=== PATIENT | female | born 1965 | race Caucasian/White ===

== ENCOUNTER 2021-06-12 12:56 | Inpatient (IN) | payer MEDICAID, SELFPAY ==
[2021-06-12] VITALS (8 sets, daily range): BP systolic 118–177; BP diastolic 68–97; PULSE 77–82; RESP 16–24; TEMP 36.1–36.9; O2SAT 98; BMI 37.3
--- NOTE | ~2021-06-12 | NM_ITS ---
BILIARY TRACT IMAGING STUDY CLINICAL INDICATION: Right upper quadrant abdominal pain, possible cholecystitis. PROCEDURE: Scintillation camera images were obtained over the abdomen for an observation of 60 minutes following the intravenous administration of 5.0 millicuries technetium 99m Mebrofenin. COMPARISON: No previous biliary scan is available for comparison. Abdominal ultrasound dated 06/13/[address] scan of the abdomen and pelvis dated 06/12/2021 are available for comparison.. FINDINGS: There is good concentration of activity in the liver by 5 minutes post injection. Biliary activity is well visualized by 12 minutes, and there is good visualization of small bowel activity by 40 minutes. The gallbladder is well visualized by 20 minutes. NM/NM hepatobiliary wo pharm IMPRESSION: Normal biliary scan. Visualization of the gallbladder is evidence of a patent cystic duct and strong evidence against the diagnosis of acute cholecystitis. The common bile duct is patent. Liver function appears normal.
--- NOTE | ~2021-06-12 | CT_ITS ---
EXAMINATION: CT ABDOMEN AND PELVIS WITH CONTRAST CLINICAL INFORMATION: Reason for Exam severe right sided back and abd pain, nausea, tender COMPARISON: None. TECHNIQUE: Multidetector volumetric imaging was performed from the superior aspect of the liver through the pubic symphysis following administration of 100 mL Omnipaque 300 intravenous contrast. Sagittal and coronal reformatted images were obtained on the technologist workstation.. This CT examination was performed using dose optimization techniques as appropriate, variously including the following: *Automated exposure control *Adjustment of mA and/or kV according to patient size (this includes techniques or standardized protocols for targeted exams where dose is matched to indication/reason for exam; i.e. extremities or head) *Use of iterative reconstruction technique DLP: 1022 mGy-cm FINDINGS: LUNG BASES: The visualized lung bases are unremarkable. LIVER, GALLBLADDER, AND BILIARY TREE: The liver is normal in size, shape, and attenuation. No focal hepatic lesion or biliary ductal dilatation is present. Large gallstones seen within the otherwise unremarkable gallbladder. No gallbladder wall thickening or pericholecystic inflammatory change. PANCREAS: Unremarkable. SPLEEN: Unremarkable. ADRENAL GLANDS: Unremarkable. KIDNEYS AND URETERS: The kidneys are normal in size, shape, and attenuation. No hydronephrosis, hydroureter, or calculi seen. No perinephric stranding. BLADDER: Unremarkable. GASTROINTESTINAL TRACT: Colon is decompressed but there is scattered colonic diverticulosis. No obvious colonic wall thickening or pericolonic inflammatory change. Normal-appearing appendix in the right lower quadrant without appendiceal inflammatory change. Normal appearance to the small bowel. ABDOMINAL WALL: No significant hernia is appreciated. LYMPHOVASCULAR STRUCTURES: Mild vascular calcification within the aorta iliac system. PELVIC VISCERA: Unremarkable. OSSEOUS STRUCTURES: Multilevel degenerative changes in the lumbar spine more so lower lumbar spine. CT/CT abdomen pelvis w con IMPRESSION: I do not appreciate any acute intra-abdominal process with chronic appearing changes as described above.
--- NOTE | ~2021-06-12 | US_ITS ---
EXAMINATION: US ABDOMEN LIMITED CLINICAL INFORMATION: Abdominal pain. Possible cholecystitis.. COMPARISON: Previous CT of the abdomen and pelvis from yesterday TECHNIQUE: Real-time imaging of the right upper quadrant abdominal viscera. FINDINGS: PANCREAS: Not well visualized due to bowel gas LIVER: Normal. The liver is normal in size. The liver contour is normal. Parenchymal echogenicity is normal. No focal hepatic lesion. There is no intrahepatic biliary duct dilatation seen. GALLBLADDER: The gallbladder is upper normal in size. There is a large gallstone in the fundus of the gallbladder measuring 3.6 cm. The gallbladder wall appears echogenic and thickened measuring 0.5 to 1.2 cm. There is no gallbladder wall edema. The electroencephalograph technologist describes that the patient is tender over the gallbladder. COMMON BILE DUCT: Normal in caliber measuring 0.6 cm in diameter. RIGHT KIDNEY: Normal. No hydronephrosis. No renal calculi or focal parenchymal lesions. The kidney measures normal cm in maximum dimension. FREE FLUID: There is a small amount of ascites adjacent to the left lobe of the liver. US/US abdomen limited IMPRESSION: Upper normal-size gallbladder. Large 3.6 cm stone in the fundus of the gallbladder and thickened gallbladder wall. The electroencephalograph technologist reports the patient is tender over the gallbladder. Small amount of ascites adjacent to the left lobe of the liver. Findings are concerning for cholecystitis. HIDA scan may be helpful.
[2021-06-12 14:27] LABS: MANUAL DIFF FLAG NO
[2021-06-12 14:29] LABS: Basophils Percent Auto 0.4 % (0-2); Eosinophils Absolute Auto 0.3 X10*3/uL (0.0-0.4); Hematocrit 38.6 % (37-47); Hemoglobin 13.5 g/dl (12.0-16.0); Imm Gran Abs Auto 0.04 X10*3/uL (0.00-0.03); Imm Gran Pct Auto 0.4 % (0.0-0.4); Lymphocytes Absolute Auto 2.4 X10*3/uL (1.2-4.9); Lymphocytes Percent Auto 22.6 % (20-40); Mean Corpuscular Hemoglobin 28.7 pg (27.0-33.0); Mean Corpuscular Volume 82.1 fL (80-98); Mean Platelet Volume 10.2 fL (9.4-12.3); Monocytes Absolute Auto 0.6 X10*3/uL (0.1-1.2); Monocytes Percent Auto 5.9 % (2-11); Neutrophils Absolute Auto 7.3 X10*3/uL (2.0-8.3); Neutrophils Percent Auto 67.7 % (45-73); Platelet Count 206 X10*3/uL (160-400); Red Cell Distribution Width 13.6 % (11.0-16.0); White Blood Count 10.8 X10*3/uL (4.8-10.8)
[2021-06-12 14:45] LABS: Anion Gap 13 (12-20); Blood Urea Nitrogen 17 mg/dL (9-16); Calcium 9.5 mg/dL (8.4-10.2); Carbon Dioxide 23 mmol/L (22-29); Chloride 106 mmol/L (96-108); Creatinine Clr Calc Pharmacy 97.2; Estimated Glomerular Filt Rate > 60; Glucose Random 150 mg/dL (60-115); Potassium 4.4 mmol/L (3.3-5.1); Sodium 138 mmol/L (135-145)
[2021-06-12 14:47] LABS: Lipase 58 U/L (8-78)
[2021-06-12 14:51] LABS: Troponin-I High Sensitivity < 3.5 ng/L (<3.5-17.0)
--- NOTE | 2021-06-12 16:15 | ED.ABDPAIN ---
HPI - Abdominal Pain General Chief Complaint: Abdominal Pain Stated Complaint: SEVERE BACK PAIN Time Seen by Provider: 06/12/21 16:03 Source: patient and family Mode of arrival: ambulatory Limitations: no limitations History of Present Illness HPI narrative: 56 yo female with history of obesity and COPD, active smoker who presents to the ER from home c/o worsening right sided abdominal pain for the last 2 weeks. She has been constipated for the last 2 weeks and taking laxatives and using suppositories without improvement. She last had a very small BM at 11am today. She reports the pain today is worse, 10/10, starts in her right middle back and wraps around to the front of her abdomen. She is nauseated but has not vomited. No fever or chills. No urinary symptoms. MD elicited complaint: abdominal pain and flank pain Pertinent past history: none Onset (ago): week(s) Pain Consistency: constant Location: R flank Severity: similar to previous episodes Pain scale (0-10): 10 Quality: stabbing Radiation: RUQ Exacerbating factors: nothing Relieving factors: nothing Associated symptoms: nausea Related Data Allergies Allergy/AdvReac Type Severity Reaction Status Date / Time codeine [CODEINE] AdvReac Unknown TYL #3 - Verified 06/12/21 13:22 HEADACHE Review of Systems Constitutional: Denies chills, Denies fever(s) and Denies headache(s) Eyes: Reports no additional eye complaints Reports Normal hearing present, Denies headache(s) and Denies sore throat Cardiovascular: Denies chest pain, Denies leg edema, Denies lightheadedness and Reports dyspnea Respiratory: Denies chest congestion, Denies cough, Reports pain on inspiration, Reports dyspnea and Denies wheezing Gastrointestinal: Reports abdominal pain, Reports bloating, Reports constipation, Reports GI cramping, Denies diarrhea, Reports nausea and Denies vomiting Genitourinary: Denies hematuria, Denies dysuria, Denies pelvic pain, Reports flank pain, Denies urinary urgency and Denies vaginal discharge Musculoskeletal: Reports back pain and Denies myalgias Skin/Breast: Denies rash Reports Normal hearing present and Denies headache(s) Hematologic/Lymphatic: Denies easy bleeding and Denies easy bruising Allergic/Immunologic: Denies wheezing Physical Exam Vital Signs: Vital Signs: Last Vital Signs Temp 98.4 F 09/04/21 19:44 Pulse 77 06/12/21 19:44 Resp 24 H 06/12/21 19:50 BP 177/97 H 06/12/21 22:19 Pulse Ox 98 06/12/21 19:44 Body Mass Index 37.3 Const: General: well developed, alert, awake and acute distress (appears to be in pain) mild Nutritional Appearance: overweight Orientation/consciousness: patient oriented x3 Limitations: no limitations HENMT: Head: Yes normal to inspection, Yes normocephalic and Yes atraumatic Ears: hearing grossly normal bilaterally and external ears normal General nose exam: Normal external nose present and Normal nares present Face and sinus: Yes normal facial exam and Yes face symmetric Mouth: Normal oral and palatal mucosa present, lip normal and tongue normal Teeth and gingiva: dentition normal and gingiva normal Throat: Yes posterior oropharynx normal, Yes tonsils normal and Yes uvula midline Eyes: General: appearance normal, both eyes and all related structures Neck: Neck: Yes normal visual inspection and Yes no lymphadenopathy Chest: Chest palpation & inspection: normal inspection of the chest Resp: Effort & Inspection: normal respiratory effort and able to speak in complete sentences Auscultation: clear to auscultation bilaterally Cardio: Rate: regular rate Rhythm: regular rhythm Heart sounds: S1 normal heart sound present and S2 normal heart sound present GI: Inspection: Yes obesity Palpation (GI): Soft to palpation, Tenderness to palpation present (GI) in the epigastrum and in the RUQ, Guarding due to palpation present (GI) in the RUQ and not rigid Percussion: Yes normal to percussion Auscultation: Hypoactive bowel sounds present Rectal Exam - Female: deferred : General: Yes CVA tenderness (on the right) Back/Spine/Pelvis: Back: CVA tenderness (on the right) Skin: General skin exam: no rashes or lesions noted Neuro: General: patient oriented x3, gait normal, tone normal and moves all extremities Cranial nerves: Yes Normal hearing present Extrem: General: Yes normal to inspection, Yes no pedal edema and Yes no calf tenderness Psych: Appearance: grossly normal and well kempt Mental Status: mental status grossly normal Speech and movement: Normal speech and movement present Affect: normal affect Attitude: cooperative Course Course Course Narrative: 56 y/o female presenting with 2 weeks of constipation as well as right flank pain radiating to right upper quadrant. Basic labs sent in triage and are unremarkable. Will add LFTs and check UA. IV morphine, zofran and IVF ordered for c/o pain 10/10. Reevaluation(s) Reevaluation #1: LFTs are normal. CT scan is pending. Pain is improved after morphine. Reevaluation #2: CT scan is negative for acute pathology. UA negative. She is again reporting 10/10 pain. Question of biliary colic? She has normal LFTs with large gallstones but no wall thickening or pericholecystic inflammatory changes. Will give dose of oxycodone and reassess. US not available at this time. Reevaluation #3: Pain not improved with oxycodone. Additional course of morphine and zofran ordered. Additional Reevaluation(s): Pain continued to have pain, does not feel safe for discharge. Spoke with Dr. Holloway who will admit for further management. Consultations Consultation #1: General Surgery - Dr. Holloway MDM - Abdominal Pain Lab Data Result diagrams: 06/12/21 14:23 06/12/21 14:23 Labs: Lab Results 06/12/21 06/12/21 06/12/21 Range/Units 14:23 14:23 14:23 WBC 10.8 (4.8-10.8) X10*3/uL RBC 4.70 (4.20-5.50) X10*6/uL Hgb 13.5 (12.0-16.0) g/dl Hct 38.6 (37-47) % MCV 82.1 (80-98) fL MCH 28.7 (27.0-33.0) pg MCHC 35.0 (31.0-35.0) g/dl RDW 13.6 (11.0-16.0) % Plt Count 206 (160-400) X10*3/uL MPV 10.2 (9.4-12.3) fL Immature Gran % (Auto) 0.4 (0.0-0.4) % Neut % (Auto) 67.7 (45-73) % Lymph % (Auto) 22.6 (20-40) % [place] % (Auto) 5.9 (2-11) % Eos % (Auto) 3.0 (0-4) % Baso % (Auto) 0.4 (0-2) % Lymph # (Auto) 2.4 (1.2-4.9) X10*3/uL [place] # (Auto) 0.6 (0.1-1.2) X10*3/uL Eos # (Auto) 0.3 (0.0-0.4) X10*3/uL Baso # (Auto) 0.0 (0.0-0.2) X10*3/uL Abs Immat Gran (auto) 0.04 H (0.00-0.03) X10*3/uL Absolute Neuts (auto) 7.3 (2.0-8.3) X10*3/uL Absolute Nucleated RBC 0.000 (0.0-0.012) X10*3/uL Nucleated RBC % (auto) 0.0 (0.0-0.2) /100WBC Sodium 138 (135-145) mmol/L Potassium 4.4 (3.3-5.1) mmol/L Chloride 106 (96-108) mmol/L Carbon Dioxide 23 (22-29) mmol/L Anion Gap 13 (12-20) BUN 17 H (9-16) mg/dL Creatinine 0.90 (0.5-1.4) mg/dL Estim Creat Clear Calc 97.2 Estimated GFR > 60 Random Glucose 150 H (60-115) mg/dL Calcium 9.5 (8.4-10.2) mg/dL Magnesium (1.6-2.6) mg/dL Total Bilirubin 0.4 (0.0-1.0) mg/dL Direct Bilirubin < 0.2 (0.0-0.5) mg/dL AST 8 (5-31) U/L ALT 12 (0-31) U/L Alkaline Phosphatase 112 (39-117) U/L Troponin I High Sens (<3.5-17.0) ng/L Total Protein 6.9 (6.5-8.0) g/dL Albumin 4.0 (3.5-5.0) g/dL Lipase 58 (8-78) U/L Urine Color Urine Appearance Urine pH (5.0-8.0) Ur Specific [place] (1.005-1.025) Urine Protein (NEG-TRACE) MG/DL Urine Glucose (UA) (NEG) MG/DL Urine Ketones (NEG) MG/DL Urine Blood (NEG) Urine Nitrite (NEG) Ur Leukocyte Esterase (NEG) COVID-19 ([facility]) (Negative) COVID-19 Clin Com 06/12/21 06/12/21 06/12/21 Range/Units 14:23 14:23 16:58 WBC (4.8-10.8) X10*3/uL RBC (4.20-5.50) X10*6/uL Hgb (12.0-16.0) g/dl Hct (37-47) % MCV (80-98) fL MCH (27.0-33.0) pg MCHC (31.0-35.0) g/dl RDW (11.0-16.0) % Plt Count (160-400) X10*3/uL MPV (9.4-12.3) fL Immature Gran % (Auto) (0.0-0.4) % Neut % (Auto) (45-73) % Lymph % (Auto) (20-40) % [place] % (Auto) (2-11) % Eos % (Auto) (0-4) % Baso % (Auto) (0-2) % Lymph # (Auto) (1.2-4.9) X10*3/uL [place] # (Auto) (0.1-1.2) X10*3/uL Eos # (Auto) (0.0-0.4) X10*3/uL Baso # (Auto) (0.0-0.2) X10*3/uL Abs Immat Gran (auto) (0.00-0.03) X10*3/uL Absolute Neuts (auto) (2.0-8.3) X10*3/uL Absolute Nucleated RBC (0.0-0.012) X10*3/uL Nucleated RBC % (auto) (0.0-0.2) /100WBC Sodium (135-145) mmol/L Potassium (3.3-5.1) mmol/L Chloride (96-108) mmol/L Carbon Dioxide (22-29) mmol/L Anion Gap (12-20) BUN (9-16) mg/dL Creatinine (0.5-1.4) mg/dL Estim Creat Clear Calc Estimated GFR Random Glucose (60-115) mg/dL Calcium (8.4-10.2) mg/dL Magnesium 2.0 (1.6-2.6) mg/dL Total Bilirubin (0.0-1.0) mg/dL Direct Bilirubin (0.0-0.5) mg/dL AST (5-31) U/L ALT (0-31) U/L Alkaline Phosphatase (39-117) U/L Troponin I High Sens < 3.5 (<3.5-17.0) ng/L Total Protein (6.5-8.0) g/dL Albumin (3.5-5.0) g/dL Lipase (8-78) U/L Urine Color YELLOW Urine Appearance CLEAR Urine pH 6.0 (5.0-8.0) Ur Specific [place] <= 1.005 (1.005-1.025) Urine Protein NEG (NEG-TRACE) MG/DL Urine Glucose (UA) NEG (NEG) MG/DL Urine Ketones NEG (NEG) MG/DL Urine Blood NEG (NEG) Urine Nitrite NEG (NEG) Ur Leukocyte Esterase NEG (NEG) COVID-19 ([facility]) (Negative) COVID-19 Clin Com 06/12/21 Range/Units 20:10 WBC (4.8-10.8) X10*3/uL RBC (4.20-5.50) X10*6/uL Hgb (12.0-16.0) g/dl Hct (37-47) % MCV (80-98) fL MCH (27.0-33.0) pg MCHC (31.0-35.0) g/dl RDW (11.0-16.0) % Plt Count (160-400) X10*3/uL MPV (9.4-12.3) fL Immature Gran % (Auto) (0.0-0.4) % Neut % (Auto) (45-73) % Lymph % (Auto) (20-40) % [place] % (Auto) (2-11) % Eos % (Auto) (0-4) % Baso % (Auto) (0-2) % Lymph # (Auto) (1.2-4.9) X10*3/uL [place] # (Auto) (0.1-1.2) X10*3/uL Eos # (Auto) (0.0-0.4) X10*3/uL Baso # (Auto) (0.0-0.2) X10*3/uL Abs Immat Gran (auto) (0.00-0.03) X10*3/uL Absolute Neuts (auto) (2.0-8.3) X10*3/uL Absolute Nucleated RBC (0.0-0.012) X10*3/uL Nucleated RBC % (auto) (0.0-0.2) /100WBC Sodium (135-145) mmol/L Potassium (3.3-5.1) mmol/L Chloride (96-108) mmol/L Carbon Dioxide (22-29) mmol/L Anion Gap (12-20) BUN (9-16) mg/dL Creatinine (0.5-1.4) mg/dL Estim Creat Clear Calc Estimated GFR Random Glucose (60-115) mg/dL Calcium (8.4-10.2) mg/dL Magnesium (1.6-2.6) mg/dL Total Bilirubin (0.0-1.0) mg/dL Direct Bilirubin (0.0-0.5) mg/dL AST (5-31) U/L ALT (0-31) U/L Alkaline Phosphatase (39-117) U/L Troponin I High Sens (<3.5-17.0) ng/L Total Protein (6.5-8.0) g/dL Albumin (3.5-5.0) g/dL Lipase (8-78) U/L Urine Color Urine Appearance Urine pH (5.0-8.0) Ur Specific [place] (1.005-1.025) Urine Protein (NEG-TRACE) MG/DL Urine Glucose (UA) (NEG) MG/DL Urine Ketones (NEG) MG/DL Urine Blood (NEG) Urine Nitrite (NEG) Ur Leukocyte Esterase (NEG) COVID-19 ([facility]) Negative (Negative) COVID-19 Clin Com See Note Critical Care Time Critical Care Time Critical Care Time: Yes Total Critical Care Time: 45 Attestation: I have personally provided critical care time exclusive of time spent on separately billable procedures. Time includes review of lab data, radiology results, discussion with consultants, and monitoring for potential decompensation. Intervention performed as documented. Discharge Plan Discharge Clinical Impression: Biliary colic Patient Disposition: Admitted As Inpatient Interventions: Admission Worksheet (ED) Last Done: 06/12/21 22:25 Discharge Date/Time: 06/12/21 22:26 [facility] Past Medical History Attestation statement: The following information was validated with the patient. Medical History (Updated 06/12/21 @ 22:21 by [email or web address] Johnson) No known health problems Social History Social History Alcohol intake: never Smoked in Last 30 Days: No Use of substances other than those prescribed or required for medical reasons: No Advance Directives: Yes Advance Directives Information Provided: Yes Advance Directives on File: No
[2021-06-12] MEDS: ondansetron HCL 4 MG/2 ML VIAL IVPUSH ×2 (16:33→19:51)
[2021-06-12] MEDS: Morphine Sulfate 4 MG/ML CARTRIDGE IVPUSH ×2 (16:33→19:50)
[2021-06-12] MEDS: 0.9 % Sodium Chloride 1,000 ML 999 ML IVCONT (16:34)
[2021-06-12 17:06] LABS: Alanine Aminotransferase 12 U/L (0-31); Alkaline Phosphatase 112 U/L (39-117); Aspartate Amino Transferase 8 U/L (5-31); Bilirubin Direct < 0.2 mg/dL (0.0-0.5); Bilirubin Total 0.4 mg/dL (0.0-1.0); Total Protein 6.9 g/dL (6.5-8.0)
[2021-06-12 17:07] LABS: Glucose Urine UA NEG (NEG); Leukocyte Esterase Urine NEG (NEG); Nitrite Urine NEG (NEG); Specific Gravity - Urine <= 1.005 (1.005-1.025); Urine Blood NEG (NEG); Urine Ketones NEG (NEG); Urine Protein NEG (NEG-TRACE)
[2021-06-12 17:08] LABS: Appearance Urine CLEAR; Color Urine YELLOW
[2021-06-12] MEDS: iohexoL 350 MG/ML 100 ML INFUS..BTL IV (17:45)
[2021-06-12] MEDS: oxyCODONE HCl Immed Release 5 MG TABLET PO (18:58)
--- NOTE | 2021-06-12 19:55 | PC.NURSE ---
?admission due to pain control
[2021-06-12 20:34] LABS: COVID-19 Test Negative (Negative)
--- NOTE | 2021-06-12 21:24 | PC.NURSE ---
pending report to floor
--- NOTE | 2021-06-12 22:03 | PC.NURSE ---
attempted call back to give report was unsuccessful
[2021-06-12] MEDS: HYDROmorphone HCl 0.5 MG/0.5 ML SYRINGE IVPUSH (22:43)
[2021-06-12] MEDS: Enoxaparin Sodium 40 MG/0.4 ML SYRINGE SUBCUT (22:48)
[2021-06-12] MEDS: Piperacillin Sodium/Tazobactam 3.375 GM in 0.9 % Sodium Chloride 50 ML IV (22:49)
[2021-06-12] MEDS: Docusate Sodium 100 MG CAPSULE PO (22:51)
[2021-06-12] MEDS: Zolpidem Tartrate 5 MG TABLET PO (23:14)
[2021-06-12] MEDS: Dextrose 5 % and Lactated Ring 1,000 ML 125 ML IVCONT (23:24)
[2021-06-13] VITALS (10 sets, daily range): BP systolic 114–157; BP diastolic 57–83; PULSE 68–74; RESP 16–20; TEMP 36.1–37.1; O2SAT 94–98
[2021-06-13] MEDS: HYDROmorphone HCl 0.5 MG/0.5 ML SYRINGE IVPUSH ×6 (04:20→23:33)
[2021-06-13] MEDS: ondansetron HCL 4 MG/2 ML VIAL IVPUSH ×2 (04:26→12:28)
[2021-06-13] MEDS: Piperacillin Sodium/Tazobactam 3.375 GM in 0.9 % Sodium Chloride 50 ML IV ×4 (04:28→23:27)
[2021-06-13 06:39] LABS: MANUAL DIFF FLAG NO
[2021-06-13 06:44] LABS: Basophils Percent Auto 0.4 % (0-2); Eosinophils Absolute Auto 0.3 X10*3/uL (0.0-0.4); Eosinophils Percent Auto 3.5 % (0-4); Hemoglobin 12.4 g/dl (12.0-16.0); Imm Gran Abs Auto 0.03 X10*3/uL (0.00-0.03); Imm Gran Pct Auto 0.4 % (0.0-0.4); Lymphocytes Absolute Auto 2.1 X10*3/uL (1.2-4.9); Lymphocytes Percent Auto 25.1 % (20-40); Mean Corpuscular HGB Conc 32.6 g/dl (31.0-35.0); Mean Corpuscular Hemoglobin 27.7 pg (27.0-33.0); Mean Platelet Volume 10.6 fL (9.4-12.3); Monocytes Absolute Auto 0.5 X10*3/uL (0.1-1.2); Monocytes Percent Auto 6.3 % (2-11); Neutrophils Absolute Auto 5.4 X10*3/uL (2.0-8.3); Neutrophils Percent Auto 64.3 % (45-73); Platelet Count 185 X10*3/uL (160-400); Red Blood Count 4.47 X10*6/uL (4.20-5.50); Red Cell Distribution Width 13.9 % (11.0-16.0); White Blood Count 8.4 X10*3/uL (4.8-10.8)
[2021-06-13 07:12] LABS: Anion Gap 12 (12-20); Blood Urea Nitrogen 12 mg/dL (9-16); Carbon Dioxide 26 mmol/L (22-29); Chloride 107 mmol/L (96-108); Creatinine Clr Calc Pharmacy 94.1; Estimated Glomerular Filt Rate > 60; Glucose Random 146 mg/dL (60-115); Potassium 4.2 mmol/L (3.3-5.1); Sodium 141 mmol/L (135-145)
[2021-06-13 07:29] LABS: Calcium 8.9 mg/dL (8.4-10.2)
--- NOTE | 2021-06-13 07:47 | P.HPGS_ITS ---
History of Present Illness History of Present Illness Date of Service: 06/13/21 Chief complaint: acute cholecystitis Narrative: Marj Rivera is a 56 year old female presenting with complaints of abdominal pain mainly in the right upper quadrant radiating to the right back for approximately 2 weeks. The pain is described as constant and non colicky. She reports decreased appetite as well as persisting constipation despite taking multiple agents for her bowels. She denies nausea, vomiting, fever, chills. Presented to the emergency department and was found to be tender in the right upper quadrant. CT of the abdomen and pelvis revealed a large gallstone within the gallbladder but no evidence of wall thickening or pericholecystic fluid. Her last colonoscopy was greater than 10 years ago apparently was performed at [facility]. She denies previous abdominal surgeries. Review of Systems Review of Systems: Yes all other systems are reviewed and are negative Constitutional: Constitutional: Denies chills, Reports fatigue, Denies fever(s), Reports malaise, Denies night sweats and Reports poor appetite Cardiovascular: Cardiovascular: Denies chest pain, Reports Epigastric Pain, Denies rapid heart rate, Denies irregular heart rhythm and Reports dyspnea Respiratory: Respiratory: Reports cough, Denies hemoptysis, Reports dyspnea and Reports wheezing Gastrointestinal: Gastrointestinal: Reports abdominal pain, Reports bloating, Reports constipation, Denies diarrhea, Denies vomiting and Denies hematemesis Integumentary/Breasts: Skin/Breast: Reports system reviewed and no additional complaints, except as docu Endocrine: Endocrine: Reports fatigue Allergic/Immunologic: Allergic/Immunologic: Reports wheezing PMFSH Past Medical History Medical History No known health problems Obesity Tobacco use Social History Social History Household Members: Family Housing: House Do you presently have visiting nurse or other home services: No Alcohol intake: never Patient Tobacco Use Status: Current everyday Tobacco user Tobacco use type: Cigarette Cigarettes Per Day: 10 Smoked in Last 30 Days: Yes Patient Interested in Nicotine Replacement: Yes Use of substances other than those prescribed or required for medical reasons: Yes Substance Use Type: Marijuana Currently Displaying Signs/Symptoms of Drug Intoxication Withdrawal: No Have you been hit, kicked, punched, or otherwise hurt by someone within the past year? If so, by whom?: No Do you feel safe in your current relationship?: Yes Is there a partner from a previous relationship who is making you feel unsafe now?: No Are you made to feel afraid or neglected: No Advance Directives: Yes Advance Directives Information Provided: Yes Advance Directives on File: No Advance Directives Date on File: 06/12/21 Do you have thoughts of harming others: None Do you have a plan to hurt others: No Plan Recently lost weight without trying: No Nutrition Risks: No Nutritional Risk Patient : No : No Poor oral hygiene: No Meds Allergies Allergy/AdvReac Type Severity Reaction Status Date / Time codeine [CODEINE] AdvReac Unknown TYL #3 - Verified 06/12/21 13:22 HEADACHE Active Medications: Current Medications Generic Name Dose Route Start Last Admin Trade Name Freq PRN Reason Stop Dose Admin Acetaminophen 650 mg 06/12/21 22:22 Acetaminophen 325 Mg Tablet PO Q6H PRN Pain, Mild (Pain Scale 1-3) Docusate Sodium 100 mg 06/12/21 22:22 06/12/21 22:51 Docusate Sodium 100 Mg Capsule PO 100 mg BID VICTORIANO Administration Enoxaparin Sodium 40 mg 06/12/21 23:00 06/12/21 22:48 Enoxaparin Sodium 40 Mg/0.4 Ml Syringe SUBCUT 40 mg Q24H VICTORIANO Administration Hydromorphone HCl 0.5 mg 06/12/21 22:22 06/13/21 04:20 Hydromorphone Hcl 0.5 Mg/0.5 Ml Syringe IVPUSH 0.5 mg Q4H PRN Administration Pain, Severe (Pain Scale 7-10) Protocol Dextrose/Lactated Ringer's 1,000 mls @ 125 mls/hr 06/12/21 22:22 06/12/21 23:24 D5lr IVCONT 125 mls/hr .Q8H VICTORIANO Administration Piperacillin Sod/Tazobactam 50 mls @ 100 mls/hr 06/12/21 23:00 06/13/21 06:11 Sod 3.375 gm/ Sodium Chloride IV Infused Q6H VICTORIANO Infusion Magnesium Hydroxide 30 ml 06/12/21 22:22 Milk Of Magnesia 30 Ml Oral.Susp PO DAILY PRN Constipation Ondansetron HCl 4 mg 06/12/21 22:22 06/13/21 04:26 Ondansetron Hcl 4 Mg/2 Ml Vial IVPUSH 4 mg Q8H PRN Administration Nausea and Vomiting Zolpidem Tartrate 5 mg 06/12/21 22:22 06/12/21 23:14 Zolpidem Tartrate 5 Mg Tablet PO 5 mg BEDTIME PRN Administration Insomnia Physical Exam Vital Signs: Vital Signs: Last Vital Signs Temp 98.4 F 06/13/21 07:40 Pulse 68 06/13/21 07:40 Resp 20 06/13/21 07:40 BP 124/57 L 06/13/21 07:40 Pulse Ox 97 06/13/21 07:40 Body Mass Index 37.3 Const: General: cooperative and no acute distress Nutritional Appearance: obese Orientation/consciousness: patient oriented x3 Limitations: no limitations HENMT: Head: Yes normocephalic and Yes atraumatic Ears: hearing grossly normal bilaterally Neck: Neck: Yes trachea midline and Yes supple Resp: Effort & Inspection: normal respiratory effort, able to speak in complete sentences, audible wheezes and Actively coughing Auscultation: wheezes GI: Inspection: Yes normal to inspection, No incision and Yes Abdominal panniculus present Palpation (GI): Soft to palpation, Tenderness to palpation present (GI) in the RUQ; Negative for Davey's sign negative, no guarding, not rigid and hepatosplenomegaly present Percussion: Yes normal to percussion Auscultation: normal bowel sounds Rectal Exam - Female: deferred Skin: General skin exam: no rashes or lesions noted Trauma: no lacerations or abrasions Wounds: no wounds Neuro: General: patient oriented x3 Psych: Mental Status: mental status grossly normal Results Results Labs: Short CBC 06/12/21 06/13/21 Range/Units 14:23 05:49 WBC 10.8 8.4 (4.8-10.8) X10*3/uL Hgb 13.5 12.4 (12.0-16.0) g/dl Hct 38.6 38.0 (37-47) % Plt Count 206 185 (160-400) X10*3/uL BMP 06/12/21 06/13/21 14:23 05:49 Sodium 138 141 Potassium 4.4 4.2 Chloride 106 107 Carbon Dioxide 23 26 BUN 17 H 12 Creatinine 0.90 0.93 Calcium 9.5 8.9 D Liver Function 06/12/21 Range/Units 14:23 Total Bilirubin 0.4 (0.0-1.0) mg/dL Direct Bilirubin < 0.2 (0.0-0.5) mg/dL AST 8 (5-31) U/L ALT 12 (0-31) U/L Alkaline Phosphatase 112 (39-117) U/L Albumin 4.0 (3.5-5.0) g/dL Urine 06/12/21 Range/Units 16:58 Urine Color YELLOW Urine Appearance CLEAR Urine pH 6.0 (5.0-8.0) Ur Specific [place] <= 1.005 (1.005-1.025) Urine Protein NEG (NEG-TRACE) MG/DL Urine Glucose (UA) NEG (NEG) MG/DL Assessment and Plan (1) Abdominal pain, right upper quadrant: Status: Acute Patient presents with 2 week history of abdominal pain in the right upper quadrant with findings of a large gallstone in the gallbladder without secondary signs of cholecystitis. Patient also reports a history of constipation and does seem to have a large stool burden on the right side. Patient started on stool softeners with no results as of yet. The patient did have a small bowel movement yesterday at home. Will try MiraLax today. Patient is now due for a colonoscopy. If the constipation does not improved gastroenterology consultation will be requested. (2) Cholelithiasis: Status: Acute Uncertain if the cholelithiasis is the cause of her abdominal pain. On CT she has a large gallstone in the body of the gallbladder with no wall thickening, pericholecystic fluid, or ductal dilatation. She has a negative Davey sign on examination today. Will check an ultrasound of the abdomen today. A.m. laboratories revealed normal WBC. (3) COPD (chronic obstructive pulmonary disease): Status: Acute Patient has a tobacco history and is a current smoker. She has not previously been diagnosed with COPD although she clearly has a persistent cough without audible wheezes. Will add albuterol inhalers and consult hospitalist for further assistance. Quality Stroke Does the patient have a stroke diagnosis?: No VTE Prior VTE?: No VTE Risk Level:: Surgical - high VTE Device Contraindication: N/A - Device Ordered VTE Drug Contraindication: N/A - Med Ordered Procedures Date of Service Date of Service: 06/13/21
[2021-06-13] MEDS: Docusate Sodium 100 MG CAPSULE PO ×2 (08:10→20:13)
[2021-06-13] MEDS: Dextrose 5 % and Lactated Ring 1,000 ML 125 ML IVCONT ×2 (08:10→14:52)
--- NOTE | 2021-06-13 12:31 | MHC.CM.PN ---
CM MET WITH PT WHO APPEARED TO BE IN SIGNIFICANT PAIN. 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 PT DENIES USE OF DME OR SERVICES. PT DOES NOT HAVE A PCP OR HEALTH INSURANCE STATING THAT HER HUSBANDS PLACE OF EMPLOYMENT CLOSED DOWN. PT IS AWARE A REFERRAL WILL BE MADE TO [facility] FOR ASSISTANCE IN OBTAINING INSURANCE. PT DOES NOT THINK SHE HAS A HCP BUT WAS NOT FEELING WELL ENOUGH TO CONSIDER COMPLETING ONE TODAY. PT IS AWARE CM CAN ASSIST IF SHE WOULD LIKE TO DO ONE LATER IN HER ADMISSION. CURRENT DC PLAN IS HOME WITH NO SERVICES TO TRANSPORT
--- NOTE | 2021-06-13 14:05 | PM.IMCN ---
History of Present Illness Data of Consult Service Date: 06/13/21 Requesting physician: Elian Holloway Primary Care Provider: None Physician HPI Reason for consult: Wheezing 56-year-old woman with history of COPD, marijuana use and tobacco use admitted by General surgery for acute cholecystitis. Patient reports right upper quadrant abdominal pain over the last 2 weeks radiating to her back. She reported decreased appetite and constipation. Denied vomiting, fever or chills. She also reported some increase in wheezing and some very minor shortness of breath with cough and yellow phlegm. Abdominal CT showed a large gallstone in the gallbladder. She was seen and examined by General surgery. Medical consultation was placed for COPD exacerbation. Review of Systems Review of Systems: Denies any recent fever chills or decrease in appetite respiratory see HPI cardiovascular denies chest pain gastrointestinal see HPI genitourinary denies any dysuria frequency or hematuria musculoskeletal denies any joint pain or swelling neuropsych denies any weakness or seizures all other systems reviewed are negative PMFSH Medical History No known health problems Obesity Tobacco use Social History Household Members: Family Housing: House Do you presently have visiting nurse or other home services: No Alcohol intake: never Patient Tobacco Use Status: Current everyday Tobacco user Tobacco use type: Cigarette Cigarettes Per Day: 10 Smoked in Last 30 Days: Yes Patient Interested in Nicotine Replacement: Yes Use of substances other than those prescribed or required for medical reasons: Yes Substance Use Type: Marijuana Currently Displaying Signs/Symptoms of Drug Intoxication Withdrawal: No Have you been hit, kicked, punched, or otherwise hurt by someone within the past year? If so, by whom?: No Do you feel safe in your current relationship?: Yes Is there a partner from a previous relationship who is making you feel unsafe now?: No Are you made to feel afraid or neglected: No Advance Directives: Yes Advance Directives Information Provided: Yes Advance Directives on File: No Advance Directives Date on File: 06/12/21 Do you have thoughts of harming others: None Do you have a plan to hurt others: No Plan Recently lost weight without trying: No Nutrition Risks: No Nutritional Risk Patient : No : No Poor oral hygiene: No service: No Current occupational status: unemployed Meds Allergies Allergy/AdvReac Type Severity Reaction Status Date / Time codeine [CODEINE] AdvReac Unknown TYL #3 - Verified 06/12/21 13:22 HEADACHE Active Medications: Current Medications Generic Name Dose Route Start Last Admin Trade Name Mark PRN Reason Stop Dose Admin Acetaminophen 650 mg 06/12/21 22:22 Acetaminophen 325 Mg Tablet PO Q6H PRN Pain, Mild (Pain Scale 1-3) Albuterol Sulfate 2 puff 06/13/21 09:01 Albuterol Sulfate 90 Mcg 8 Gm Inhaler INHALE RQ6H PRN Wheezing Docusate Sodium 100 mg 06/12/21 22:22 06/13/21 08:10 Docusate Sodium 100 Mg Capsule PO 100 mg BID VICTORIANO Administration Enoxaparin Sodium 40 mg 06/12/21 23:00 06/12/21 22:48 Enoxaparin Sodium 40 Mg/0.4 Ml Syringe SUBCUT 40 mg Q24H VICTORIANO Administration Hydromorphone HCl 0.5 mg 06/12/21 22:22 06/13/21 12:28 Hydromorphone Hcl 0.5 Mg/0.5 Ml Syringe IVPUSH 0.5 mg Q4H PRN Administration Pain, Severe (Pain Scale 7-10) Protocol Dextrose/Lactated Ringer's 1,000 mls @ 125 mls/hr 06/12/21 22:22 06/13/21 08:10 D5lr IVCONT 125 mls/hr .Q8H VICTORIANO Administration Piperacillin Sod/Tazobactam 50 mls @ 100 mls/hr 06/12/21 23:00 06/13/21 11:57 Sod 3.375 gm/ Sodium Chloride IV Infused Q6H VICTORIANO Infusion Magnesium Hydroxide 30 ml 06/12/21 22:22 Milk Of Magnesia 30 Ml Oral.Susp PO DAILY PRN Constipation Ondansetron HCl 4 mg 06/12/21 22:22 06/13/21 12:28 Ondansetron Hcl 4 Mg/2 Ml Vial IVPUSH 4 mg Q8H PRN Administration Nausea and Vomiting Polyethylene Glycol 17 gm 06/13/21 09:05 06/13/21 12:27 Polyethylene Glycol 3350 17 Gm Powd.Pack PO Not Given DAILY VICTORIANO Zolpidem Tartrate 5 mg 06/12/21 22:22 06/12/21 23:14 Zolpidem Tartrate 5 Mg Tablet PO 5 mg BEDTIME PRN Administration Insomnia Physical Exam Vital Signs and Narrative: Vital Signs: Last Vital Signs Temp 97.7 F 06/13/21 11:51 Pulse 73 06/13/21 11:51 Resp 18 06/13/21 12:28 BP 145/83 H 06/13/21 11:51 Pulse Ox 98 06/13/21 11:51 Body Mass Index 37.3 Appearing in no acute distress, very restless head is normocephalic atraumatic eyes pupils are PERRLA sclera is anicteric mouth throat mucous membranes are intact and moist neck is supple no lymphadenopathy, no JVD noted lung sounds are clear to auscultation heart regular rate rhythm, clear S1, S2 positive bowel sounds, right upper quadrant tenderness neuro patient is alert x3, no focal deficits Results Labs CBC and Chem 7: 06/13/21 05:49 06/13/21 05:49 Labs: Laboratory Results - last 24 hr 06/12/21 06/12/21 06/12/21 14:23 14:23 14:23 MCV 82.1 MCH 28.7 MCHC 35.0 RDW 13.6 Plt Count 206 MPV 10.2 Immature Gran % (Auto) 0.4 Neut % (Auto) 67.7 Lymph % (Auto) 22.6 [place] % (Auto) 5.9 Eos % (Auto) 3.0 Baso % (Auto) 0.4 Lymph # (Auto) 2.4 [place] # (Auto) 0.6 Eos # (Auto) 0.3 Baso # (Auto) 0.0 Abs Immat Gran (auto) 0.04 H Absolute Neuts (auto) 7.3 Absolute Nucleated RBC 0.000 Nucleated RBC % (auto) 0.0 Anion Gap 13 Estim Creat Clear Calc 97.2 Estimated GFR > 60 Random Glucose 150 H Calcium 9.5 Magnesium Total Bilirubin 0.4 Direct Bilirubin < 0.2 AST 8 ALT 12 Alkaline Phosphatase 112 Troponin I High Sens Total Protein 6.9 Albumin 4.0 Lipase 58 Urine Color Urine Appearance Urine pH Ur Specific [place] Urine Protein Urine Glucose (UA) Urine Ketones Urine Blood Urine Nitrite Ur Leukocyte Esterase COVID-19 ([facility]) COVID-19 Clin Com 06/12/21 06/12/21 06/12/21 14:23 14:23 16:58 MCV MCH MCHC RDW Plt Count MPV Immature Gran % (Auto) Neut % (Auto) Lymph % (Auto) [place] % (Auto) Eos % (Auto) Baso % (Auto) Lymph # (Auto) [place] # (Auto) Eos # (Auto) Baso # (Auto) Abs Immat Gran (auto) Absolute Neuts (auto) Absolute Nucleated RBC Nucleated RBC % (auto) Anion Gap Estim Creat Clear Calc Estimated GFR Random Glucose Calcium Magnesium 2.0 Total Bilirubin Direct Bilirubin AST ALT Alkaline Phosphatase Troponin I High Sens < 3.5 Total Protein Albumin Lipase Urine Color YELLOW Urine Appearance CLEAR Urine pH 6.0 Ur Specific [place] <= 1.005 Urine Protein NEG Urine Glucose (UA) NEG Urine Ketones NEG Urine Blood NEG Urine Nitrite NEG Ur Leukocyte Esterase NEG COVID-19 ([facility]) COVID-19 Clin Com 06/12/21 06/13/21 06/13/21 20:10 05:49 05:49 MCV 85.0 MCH 27.7 MCHC 32.6 RDW 13.9 Plt Count 185 MPV 10.6 Immature Gran % (Auto) 0.4 Neut % (Auto) 64.3 Lymph % (Auto) 25.1 [place] % (Auto) 6.3 Eos % (Auto) 3.5 Baso % (Auto) 0.4 Lymph # (Auto) 2.1 [place] # (Auto) 0.5 Eos # (Auto) 0.3 Baso # (Auto) 0.0 Abs Immat Gran (auto) 0.03 Absolute Neuts (auto) 5.4 Absolute Nucleated RBC 0.000 Nucleated RBC % (auto) 0.0 Anion Gap 12 Estim Creat Clear Calc 94.1 Estimated GFR > 60 Random Glucose 146 H Calcium 8.9 D Magnesium Total Bilirubin Direct Bilirubin AST ALT Alkaline Phosphatase Troponin I High Sens Total Protein Albumin Lipase Urine Color Urine Appearance Urine pH Ur Specific [place] Urine Protein Urine Glucose (UA) Urine Ketones Urine Blood Urine Nitrite Ur Leukocyte Esterase COVID-19 ([facility]) Negative COVID-19 Clin Com See Note Imaging Radiologist's Impressions: Impressions Abdomen/Pelvis CT 06/12/21 16:10 IMPRESSION: I do not appreciate any acute intra-abdominal process with chronic appearing changes as described above. Abdomen Ultrasound 06/13/21 11:04 IMPRESSION: Upper normal-size gallbladder. Large 3.6 cm stone in the fundus of the gallbladder and thickened gallbladder wall. The optometric technologist reports the patient is tender over the gallbladder. Small amount of ascites adjacent to the left lobe of the liver. Findings are concerning for cholecystitis. HIDA scan may be helpful. Assessment and Plan (1) COPD (chronic obstructive pulmonary disease): Status: Acute 56-year-old woman admitted by General surgery for possible cholecystitis. Medical consultation placed for COPD exacerbation. COPD exacerbation. X-ray wheezes noted, cough with yellow sputum Scheduled DuoNebs and p.r.n. Hold off on steroids for now as patient is preoperative cholecystectomy, no hypoxia noted already on Zosyn. Acute cholecystectomy. Management as per surgical team Pain management Smoker. NRT Discussed importance of smoking cessation Obesity. BMI 37.3 Discussed the importance of weight management as this may contribute to worsening of other comorbidities DVT prophylaxis with mechanical compression boots Attending Dr. Lynn
[2021-06-13] MEDS: methylPREDNISolone Sod Succ 125 MG/2 ML VIAL IVPUSH (14:50)
[2021-06-13] MEDS: Albuterol Sulfate (0.083%) 2.5 MG/3 ML VIAL.NEB INHALE ×2 (15:31→20:03)
[2021-06-13] MEDS: Enoxaparin Sodium 40 MG/0.4 ML SYRINGE SUBCUT (23:27)
[2021-06-14] VITALS (8 sets, daily range): BP systolic 104–141; BP diastolic 58–79; PULSE 62–80; RESP 18–20; TEMP 36.5–37.7; O2SAT 96–99
[2021-06-14] MEDS: HYDROmorphone HCl 0.5 MG/0.5 ML SYRINGE IVPUSH ×3 (03:26→10:13)
[2021-06-14] MEDS: Piperacillin Sodium/Tazobactam 3.375 GM in 0.9 % Sodium Chloride 50 ML IV ×4 (06:33→22:06)
[2021-06-14] MEDS: Dextrose 5 % and Lactated Ring 1,000 ML 125 ML IVCONT (06:34)
[2021-06-14] MEDS: Albuterol Sulfate (0.083%) 2.5 MG/3 ML VIAL.NEB INHALE ×3 (08:28→19:37)
--- NOTE | 2021-06-14 09:43 | PM.IMPN ---
Progress Note: A&P (1) COPD exacerbation: Status: Acute (2) Tobacco use: Status: Acute (3) Obesity: Status: Acute Assessment and Plan: 56-year-old woman admitted by General surgery for possible cholecystitis.? Medical consultation placed for COPD exacerbation.? COPD exacerbation.?Better today after dose of steroid Scheduled DuoNebs and p.r.n. Acute cholecystectomy.? Management as per surgical team Pain management Smoker. NRT Discussed importance of smoking cessation? Obesity.? BMI 37.3 Discussed the importance of weight management as this may contribute to worsening of other comorbidities DVT prophylaxis with mechanical compression boots Attending Dr. Lynn No other acute medical problems, will sign off for now. Subjective Subjective Date of Service: 06/14/21 Review of Systems Follow up consult no wheezing today less restless Physical Exam Vital Signs: Vital Signs: Last Vital Signs Temp 98.6 F 06/14/21 07:22 Pulse 68 06/14/21 08:30 Resp 18 06/14/21 07:22 BP 141/79 H 06/14/21 07:22 Pulse Ox 97 06/14/21 07:22 Body Mass Index 37.3 Appearing in no acute distress lung sounds are clear to auscultation heart regular rate rhythm, clear S1, S2 positive bowel sounds, abdomen is soft, nontender neuro patient is alert x3, no focal deficits Objective Data Current Medications Generic Name Dose Route Start Last Admin Trade Name Freq PRN Reason Stop Dose Admin Acetaminophen 650 mg 06/12/21 22:22 Acetaminophen 325 Mg Tablet PO Q6H PRN Pain, Mild (Pain Scale 1-3) Albuterol Sulfate 2 puff 06/13/21 09:01 Albuterol Sulfate 90 Mcg 8 Gm Inhaler INHALE RQ6H PRN Wheezing Albuterol Sulfate 2.5 mg 06/13/21 16:00 06/14/21 08:28 Albuterol Sulfate (0.083%) 2.5 Mg/3 Ml Vial.Neb INHALE 2.5 mg RQ4H WHILE AWAKE VICTORIANO Administration Docusate Sodium 100 mg 06/12/21 22:22 06/13/21 20:13 Docusate Sodium 100 Mg Capsule PO 100 mg BID VICTORIANO Administration Enoxaparin Sodium 40 mg 06/12/21 23:00 06/13/21 23:27 Enoxaparin Sodium 40 Mg/0.4 Ml Syringe SUBCUT 40 mg Q24H VICTORIANO Administration Hydromorphone HCl 0.5 mg 06/13/21 15:57 06/14/21 06:28 Hydromorphone Hcl 0.5 Mg/0.5 Ml Syringe IVPUSH 0.5 mg Q3H PRN Administration Pain, Severe (Pain Scale 7-10) Protocol Piperacillin Sod/Tazobactam 50 mls @ 100 mls/hr 06/12/21 23:00 06/14/21 07:41 Sod 3.375 gm/ Sodium Chloride IV Infused Q6H VICTORIANO Infusion Magnesium Hydroxide 30 ml 06/12/21 22:22 Milk Of Magnesia 30 Ml Oral.Susp PO DAILY PRN Constipation Ondansetron HCl 4 mg 06/12/21 22:22 06/13/21 12:28 Ondansetron Hcl 4 Mg/2 Ml Vial IVPUSH 4 mg Q8H PRN Administration Nausea and Vomiting Polyethylene Glycol 17 gm 06/13/21 09:05 06/13/21 12:27 Polyethylene Glycol 3350 17 Gm Powd.Pack PO Not Given DAILY VICTORIANO Zolpidem Tartrate 5 mg 06/12/21 22:22 06/12/21 23:14 Zolpidem Tartrate 5 Mg Tablet PO 5 mg BEDTIME PRN Administration Insomnia Labs CBC & Chem 7: 06/13/21 05:49 06/13/21 05:49 Quality Stroke Does the patient have a stroke diagnosis?: No VTE Prior VTE?: No VTE Risk Level:: Surgical - high VTE Device Contraindication: N/A - Device Ordered VTE Drug Contraindication: N/A - Med Ordered
--- NOTE | 2021-06-14 09:48 | P.PNGS_ITS ---
Subjective Subjective Date of Service: 06/14/21 Interval history: Overall patient feels improved although she is taking pain medications every 3 hours. She is now hungry and would like to try solid food. The pain remains mainly in the right upper quadrant with radiation to the back. I reviewed the findings of the ultrasound with the patient and recommendation for HIDA scan. She still has not had a bowel movement despite the MiraLax. Physical Exam Vital Signs: Vital Signs: Last Vital Signs Temp 98.6 F 06/14/21 07:22 Pulse 68 06/14/21 08:30 Resp 18 06/14/21 07:22 BP 141/79 H 06/14/21 07:22 Pulse Ox 97 06/14/21 07:22 Body Mass Index 37.3 Resp: Effort & Inspection: normal respiratory effort GI: Inspection: Yes normal to inspection Palpation (GI): Soft to palpation, Tenderness to palpation present (GI) in the RUQ, no guarding and not rigid Percussion: Yes normal to percussion Auscultation: normal bowel sounds Rectal Exam - Female: deferred Skin: General skin exam: no rashes or lesions noted Procedures Date of Service Date of Service: 06/14/21 Progress Note: A&P Assessment and plan (1) Abdominal pain, right upper quadrant: Status: Acute Assessment and Plan: Patient with continued abdominal pain although it is much improved this morning. Ultrasound reveals a thickened gallbladder wall not seen on CT. I recommended further evaluation of HIDA scan although department is unable to obtain the medication until Monday afternoon. This will help to clarify the cause of her abdominal pain. If the gallbladder is not visualized with a HIDA scan, cholecystectomy would be recommended. If the gallbladder fills normally GI consultation would be required in light of her persistent constipation. Patient expressed understanding and agrees with the plan. (2) COPD exacerbation: Status: Acute Assessment and Plan: Appreciate hospitalist's input. Holding on steroid given the possibility of surgery later this week. (3) Cholelithiasis: Status: Acute Fall Risk Details Current Medications: Current Medications Generic Name Dose Route Start Last Admin Trade Name Freq PRN Reason Stop Dose Admin Acetaminophen 650 mg 06/12/21 22:22 Acetaminophen 325 Mg Tablet PO Q6H PRN Pain, Mild (Pain Scale 1-3) Albuterol Sulfate 2 puff 06/13/21 09:01 Albuterol Sulfate 90 Mcg 8 Gm Inhaler INHALE RQ6H PRN Wheezing Albuterol Sulfate 2.5 mg 06/13/21 16:00 06/14/21 08:28 Albuterol Sulfate (0.083%) 2.5 Mg/3 Ml Vial.Neb INHALE 2.5 mg RQ4H WHILE AWAKE VICTORIANO Administration Docusate Sodium 100 mg 06/12/21 22:22 06/13/21 20:13 Docusate Sodium 100 Mg Capsule PO 100 mg BID VICTORIANO Administration Enoxaparin Sodium 40 mg 06/12/21 23:00 06/13/21 23:27 Enoxaparin Sodium 40 Mg/0.4 Ml Syringe SUBCUT 40 mg Q24H VICTORIANO Administration Hydromorphone HCl 0.5 mg 06/13/21 15:57 06/14/21 06:28 Hydromorphone Hcl 0.5 Mg/0.5 Ml Syringe IVPUSH 0.5 mg Q3H PRN Administration Pain, Severe (Pain Scale 7-10) Protocol Piperacillin Sod/Tazobactam 50 mls @ 100 mls/hr 06/12/21 23:00 06/14/21 07:41 Sod 3.375 gm/ Sodium Chloride IV Infused Q6H VICTORIANO Infusion Magnesium Hydroxide 30 ml 06/12/21 22:22 Milk Of Magnesia 30 Ml Oral.Susp PO DAILY PRN Constipation Ondansetron HCl 4 mg 06/12/21 22:22 06/13/21 12:28 Ondansetron Hcl 4 Mg/2 Ml Vial IVPUSH 4 mg Q8H PRN Administration Nausea and Vomiting Polyethylene Glycol 17 gm 06/13/21 09:05 06/13/21 12:27 Polyethylene Glycol 3350 17 Gm Powd.Pack PO Not Given DAILY [facility] Zolpidem Tartrate 5 mg 06/12/21 22:22 06/12/21 23:14 Zolpidem Tartrate 5 Mg Tablet PO 5 mg BEDTIME PRN Administration Insomnia Time Spent With Patient Time: Total time spent is greater than 50% in coordination of care (as documented) at patient's floor/unit and/or counseling patient: Time with patient: 15 - 24 minutes Quality Stroke Does the patient have a stroke diagnosis?: No VTE Prior VTE?: No VTE Risk Level:: Surgical - high VTE Device Contraindication: N/A - Device Ordered VTE Drug Contraindication: N/A - Med Ordered
[2021-06-14] MEDS: polyethylene glycoL 3350 17 GM POWD.PACK PO (10:13)
[2021-06-14] MEDS: Docusate Sodium 100 MG CAPSULE PO ×2 (10:14→22:06)
[2021-06-14] MEDS: HYDROmorphone HCl 1 MG/ML SYRINGE 0.5 MG IVPUSH ×3 (15:41→22:16)
[2021-06-14] MEDS: Enoxaparin Sodium 40 MG/0.4 ML SYRINGE SUBCUT (22:06)
[2021-06-14] MEDS: Zolpidem Tartrate 5 MG TABLET PO (23:34)
[2021-06-14] MEDS: Acetaminophen 325 MG TABLET 650 MG PO (23:34)
[2021-06-15] VITALS (8 sets, daily range): BP systolic 115–168; BP diastolic 65–85; PULSE 61–82; RESP 18–20; TEMP 36.1–36.9; O2SAT 94–100; BMI 26.2
[2021-06-15] MEDS: HYDROmorphone HCl 1 MG/ML SYRINGE 0.5 MG IVPUSH ×7 (01:46→22:04)
[2021-06-15] MEDS: Milk of Magnesia 30 ML ORAL.SUSP PO (01:48)
[2021-06-15] MEDS: Piperacillin Sodium/Tazobactam 3.375 GM in 0.9 % Sodium Chloride 50 ML IV ×4 (04:36→22:06)
[2021-06-15] MEDS: Albuterol Sulfate (0.083%) 2.5 MG/3 ML VIAL.NEB INHALE ×3 (07:41→19:41)
--- NOTE | 2021-06-15 08:03 | PM.PNGS ---
Subjective Subjective Date of Service: 06/15/21 <Jerilyn Osei PA-C - Last Filed: 06/15/21 08:08> 06/15/21 <Elian Holloway MD - Last Filed: 06/15/21 08:54> Interval history: Still continues with upper abdominal pain, mostly right side. Requiring analgesics q4h. Still no BM- on miralax, colace. Passing flatus. Mag citrate not given yesterday. OOB and ambulating. Awaiting HIDA. She reports she is hungry and wants to eat. <Jerilyn Osei PA-C - Last Filed: 06/15/21 08:08> Physical Exam Vital Signs: Vital Signs: Last Vital Signs Temp 98.5 F 06/15/21 03:12 Pulse 76 06/15/21 07:42 Resp 18 06/15/21 03:12 BP 133/69 06/15/21 03:12 Pulse Ox 94 06/15/21 03:12 Body Mass Index 26.2 <Jerilyn Osei PA-C - Last Filed: 06/15/21 08:08> Const: General: comfortable, no acute distress and alert <Jerilyn Osei PA-C - Last Filed: 06/15/21 08:08> Orientation/consciousness: patient oriented x3 <ELLEN Escobedo Last Filed: 06/15/21 08:08> Resp: Effort & Inspection: normal respiratory effort <Jerilyn Osei PA-C - Last Filed: 06/15/21 08:08> Cardio: Rate: regular rate <ELLEN Escobedo Last Filed: 06/15/21 08:08> GI: Inspection: No distended <ELLEN Escobedo Last Filed: 06/15/21 08:08> Palpation (GI): Soft to palpation, Tenderness to palpation present (GI) (RUQ/epigastric) Negative for with no rebound tenderness, no guarding, not rigid and Other GI palpation findings present (upper abdominal fullness to palpation) <ELLEN Escobedo Last Filed: 06/15/21 08:08> Skin: General skin exam: no rashes or lesions noted <Jerilyn Osei PA-C - Last Filed: 06/15/21 08:08> Neuro: General: patient oriented x3 <Jerilyn Osei PA-C - Last Filed: 06/15/21 08:08> Procedures Date of Service Date of Service: 06/15/21 <Jerilyn Osei PA-C - Last Filed: 06/15/21 08:08> Progress Note: A&P Assessment and plan (1) Cholelithiasis: Status: Acute <ELLEN Escobedo Last Filed: 06/15/21 08:08> (2) COPD (chronic obstructive pulmonary disease): Status: Acute <Jerilyn Osei PA-C - Last Filed: 06/15/21 08:08> Assessment and Plan: Patient with continued abdominal pain although continues to be improved.? Ultrasound reveals ?thickened gallbladder wall not seen on CT.? Awaiting HIDA scan to further evaluate GB. If the gallbladder is not visualized with a HIDA scan, cholecystectomy would be recommended.? If the gallbladder fills normally GI consultation would be required in light of her persistent constipation.? Patient expressed understanding and agrees with the plan. Will reorder mag citrate, fleet enema for later today if still no BM. Discussed use of narcotics and how they can worsen constipation. Encouraged OOB/ambulation. <Jerilyn Osei PA-C - Last Filed: 06/15/21 08:08> Patient with continued abdominal pain although continues to be improved.? Ultrasound reveals ?thickened gallbladder wall not seen on CT.? Awaiting HIDA scan to further evaluate GB. If the gallbladder is not visualized with a HIDA scan, cholecystectomy would be recommended.? If the gallbladder fills normally GI consultation would be required in light of her persistent constipation.? Patient expressed understanding and agrees with the plan. Will reorder mag citrate, fleet enema for later today if still no BM. Discussed use of narcotics and how they can worsen constipation. Encouraged OOB/ambulation. Patient is awaiting HIDA today. Abdominal pain still present but better. Exam is unchanged. Agree with the above assessment and plan. Possible Lap richa tomorrow if gallbladder not visualized on HIDA. <Elian Holloway MD - Last Filed: 06/15/21 08:54> Fall Risk Details Current Medications: Current Medications Generic Name Dose Route Start Last Admin Trade Name Freq PRN Reason Stop Dose Admin Acetaminophen 650 mg 06/12/21 22:22 06/14/21 23:34 Acetaminophen 325 Mg Tablet PO 650 mg Q6H PRN Administration Pain, Mild (Pain Scale 1-3) Albuterol Sulfate 2 puff 06/13/21 09:01 Albuterol Sulfate 90 Mcg 8 Gm Inhaler INHALE RQ6H PRN Wheezing Albuterol Sulfate 2.5 mg 06/13/21 16:00 06/15/21 07:41 Albuterol Sulfate (0.083%) 2.5 Mg/3 Ml Vial.Neb INHALE 2.5 mg RQ4H WHILE AWAKE VICTORIANO Administration Docusate Sodium 100 mg 06/12/21 22:22 06/15/21 07:48 Docusate Sodium 100 Mg Capsule PO Not Given BID VI[facility] Enoxaparin Sodium 40 mg 06/12/21 23:00 06/14/21 22:06 Enoxaparin Sodium 40 Mg/0.4 Ml Syringe SUBCUT 40 mg Q24H VICTORIANO Administration Hydromorphone HCl 0.5 mg 06/14/21 12:15 06/15/21 04:35 Hydromorphone Hcl 1 Mg/Ml Syringe IVPUSH 0.5 mg Q3H PRN Administration Pain, Severe (Pain Scale 7-10) Protocol Piperacillin Sod/Tazobactam 50 mls @ 100 mls/hr 06/12/21 23:00 06/15/21 05:05 Sod 3.375 gm/ Sodium Chloride IV Infused Q6H VICTORIANO Infusion Magnesium Citrate 300 ml 06/15/21 08:02 Magnesium Citrate 300 Ml Solution PO 06/15/21 08:03 ONCE ONE Magnesium Hydroxide 30 ml 06/12/21 22:22 06/15/21 01:48 Milk Of Magnesia 30 Ml Oral.Susp PO 30 ml DAILY PRN Administration Constipation Ondansetron HCl 4 mg 06/12/21 22:22 06/13/21 12:28 Ondansetron Hcl 4 Mg/2 Ml Vial IVPUSH 4 mg Q8H PRN Administration Nausea and Vomiting Polyethylene Glycol 17 gm 06/13/21 09:05 06/15/21 07:48 Polyethylene Glycol 3350 17 Gm Powd.Pack PO Not Given DAILY [facility] Zolpidem Tartrate 5 mg 06/12/21 22:22 06/14/21 23:34 Zolpidem Tartrate 5 Mg Tablet PO 5 mg BEDTIME PRN Administration Insomnia <Jerilyn Osei PA-C - Last Filed: 06/15/21 08:08> Time Spent With Patient Time: Total time spent is greater than 50% in coordination of care (as documented) at patient's floor/unit and/or counseling patient: <Jerilyn Osei PA-C - Last Filed: 06/15/21 08:08> Time with patient: 15 - 24 minutes <ELLEN Escobedo Last Filed: 06/15/21 08:08> Quality Stroke Does the patient have a stroke diagnosis?: No <Jerilyn Osei PA-C - Last Filed: 06/15/21 08:08> VTE Prior VTE?: No <Jerilyn Osei PA-C - Last Filed: 06/15/21 08:08> VTE Risk Level:: Surgical - high <ELLEN Escobedo Last Filed: 06/15/21 08:08> VTE Device Contraindication: N/A - Device Ordered <ELLEN Escobedo Last Filed: 06/15/21 08:08> VTE Drug Contraindication: N/A - Med Ordered <ELLEN Escobedo Last Filed: 06/15/21 08:08>
[2021-06-15] MEDS: Magnesium Citrate 300 ML SOLUTION PO (14:41)
[2021-06-15] MEDS: Zolpidem Tartrate 5 MG TABLET PO (22:05)
[2021-06-15] MEDS: Enoxaparin Sodium 40 MG/0.4 ML SYRINGE SUBCUT (22:05)
[2021-06-16] VITALS (8 sets, daily range): BP systolic 114–137; BP diastolic 56–76; PULSE 66–87; RESP 14–20; TEMP 36.3–36.7; O2SAT 97–100
[2021-06-16] MEDS: HYDROmorphone HCl 1 MG/ML SYRINGE 0.5 MG IVPUSH ×7 (02:28→22:59)
[2021-06-16] MEDS: Piperacillin Sodium/Tazobactam 3.375 GM in 0.9 % Sodium Chloride 50 ML IV ×4 (05:31→23:01)
[2021-06-16] MEDS: ondansetron HCL 4 MG/2 ML VIAL IVPUSH (05:31)
[2021-06-16] MEDS: Albuterol Sulfate (0.083%) 2.5 MG/3 ML VIAL.NEB INHALE ×3 (08:34→15:58)
--- NOTE | 2021-06-16 08:56 | PM.PNGS ---
Subjective Subjective Date of Service: 06/16/21 <Jerilyn Osei PA-C - Last Filed: 06/16/21 09:00> 06/16/21 <Elian Holloway MD - Last Filed: 06/16/21 12:23> Interval history: Does not feel any better. Now has had multiple loose BM. Still having RUQ and now lower abdominal pain. Tolerating diet which does not make pain worse. <Jerilyn Osei PA-C - Last Filed: 06/16/21 09:00> Physical Exam Vital Signs: Vital Signs: Last Vital Signs Temp 97.6 F 06/16/21 07:08 Pulse 87 06/16/21 08:35 Resp 18 06/16/21 07:08 BP 130/70 06/16/21 07:08 Pulse Ox 97 06/16/21 07:08 Body Mass Index 26.2 <Jerilyn Osei PA-C - Last Filed: 06/16/21 09:00> Const: General: comfortable, no acute distress and alert <Jerilyn Osei PA-C - Last Filed: 06/16/21 09:00> Orientation/consciousness: patient oriented x3 <Jerilyn Osei PA-C - Last Filed: 06/16/21 09:00> Resp: Effort & Inspection: normal respiratory effort <Jerilyn Osei PA-C - Last Filed: 06/16/21 09:00> GI: Inspection: No distended <Jerilyn Osei PA-C - Last Filed: 06/16/21 09:00> Palpation (GI): Soft to palpation and Tenderness to palpation present (GI) (mild diffuse) <Jerilyn Osei PA-C - Last Filed: 06/16/21 09:00> Percussion: Yes normal to percussion <ELLEN Escobedo Last Filed: 06/16/21 09:00> Skin: General skin exam: no rashes or lesions noted <ELLEN Escobedo Last Filed: 06/16/21 09:00> Neuro: General: patient oriented x3 <ELLEN Escobedo Last Filed: 06/16/21 09:00> Procedures Date of Service Date of Service: 06/16/21 <Jerilyn Osei PA-C - Last Filed: 06/16/21 09:00> Progress Note: A&P Assessment and plan (1) Cholelithiasis: Status: Acute <Jerilyn Osei PA-C - Last Filed: 06/16/21 09:00> (2) Abdominal pain, right upper quadrant: Status: Acute <Jerilyn Osei PA-C - Last Filed: 06/16/21 09:00> Assessment and Plan: Patient with continued abdominal pain. Normal HIDA scan, GB visualized and tolerating low fat diet without worsening of pain. GB likely not source of pain. Now having loose bowel movements. Will request GI consult for further evaluation of pain. Patient expressed understanding and agrees with the plan. Encouraged OOB/ambulation. <Jerilyn Osei PA-C - Last Filed: 06/16/21 09:00> Patient with continued abdominal pain. Normal HIDA scan, GB visualized and tolerating low fat diet without worsening of pain. GB likely not source of pain. Now having loose bowel movements. Will request GI consult for further evaluation of pain. Patient expressed understanding and agrees with the plan. Encouraged OOB/ambulation. I reviewed the HIDA scan results with the patient which showed prompt filling of the gallbladder. Contrast quickly exits into the small bowel with a normal common bile duct. Findings are strong evidence against acute cholecystitis. She continues to have pain despite having multiple bowel movements. She does report the bowels are thin, ribbonlike but without bleeding. Pain remains in the right upper quadrant. Examination continues to show some tenderness to deep palpation in the right upper quadrant. There is a negative Davey sign. Agree with GI consultation for possible colonoscopy. Agree with the above assessment and plan. <Elian Holloway MD - Last Filed: 06/16/21 12:23> Fall Risk Details Current Medications: Current Medications Generic Name Dose Route Start Last Admin Trade Name Freq PRN Reason Stop Dose Admin Albuterol Sulfate 2 puff 06/13/21 09:01 Albuterol Sulfate 90 Mcg 8 Gm Inhaler INHALE RQ6H PRN Wheezing Albuterol Sulfate 2.5 mg 06/13/21 16:00 06/16/21 08:34 Albuterol Sulfate (0.083%) 2.5 Mg/3 Ml Vial.Neb INHALE 2.5 mg RQ4H WHILE AWAKE VICTORIANO Administration Docusate Sodium 100 mg 06/12/21 22:22 06/16/21 07:57 Docusate Sodium 100 Mg Capsule PO Not Given BID VICTOR[facility]O Enoxaparin Sodium 40 mg 06/12/21 23:00 06/15/21 22:05 Enoxaparin Sodium 40 Mg/0.4 Ml Syringe SUBCUT 40 mg Q24H VICTORIANO Administration Hydromorphone HCl 0.5 mg 06/14/21 12:15 06/16/21 08:43 Hydromorphone Hcl 1 Mg/Ml Syringe IVPUSH 0.5 mg Q3H PRN Administration Pain, Severe (Pain Scale 7-10) Protocol Piperacillin Sod/Tazobactam 50 mls @ 100 mls/hr 06/12/21 23:00 06/16/21 06:12 Sod 3.375 gm/ Sodium Chloride IV Infused Q6H VICTORIANO Infusion Acetaminophen 1,000 mg in 100 mls @ 400 mls/hr 06/15/21 08:15 Ofirmev IV Q6H PRN abdominal pain Magnesium Hydroxide 30 ml 06/12/21 22:22 06/15/21 01:48 Milk Of Magnesia 30 Ml Oral.Susp PO 30 ml DAILY PRN Administration Constipation Ondansetron HCl 4 mg 06/12/21 22:22 06/16/21 05:31 Ondansetron Hcl 4 Mg/2 Ml Vial IVPUSH 4 mg Q8H PRN Administration Nausea and Vomiting Polyethylene Glycol 17 gm 06/13/21 09:05 06/16/21 07:57 Polyethylene Glycol 3350 17 Gm Powd.Pack PO Not Given DAILY [facility] Sodium Biphosphate/Sodium Phosphate 133 ml 06/15/21 08:02 Sodium Phosphate,[place]-Dibasic 133 Ml Enema [place] ONCE PRN Constipation Zolpidem Tartrate 5 mg 06/12/21 22:22 06/15/21 22:05 Zolpidem Tartrate 5 Mg Tablet PO 5 mg BEDTIME PRN Administration Insomnia <Jerilyn Osei PA-C - Last Filed: 06/16/21 09:00> Time Spent With Patient Time: Total time spent is greater than 50% in coordination of care (as documented) at patient's floor/unit and/or counseling patient: <Jerilyn Osei PA-C - Last Filed: 06/16/21 09:00> Time with patient: less than 15 minutes <Jerilyn Osei PA-C - Last Filed: 06/16/21 09:00> 15 - 24 minutes <Elian Holloway MD - Last Filed: 06/16/21 12:23> Quality Stroke Does the patient have a stroke diagnosis?: No <Jerilyn Osei PA-C - Last Filed: 06/16/21 09:00> VTE Prior VTE?: No <Jerilyn Osei PA-C - Last Filed: 06/16/21 09:00> VTE Risk Level:: Surgical - high <Jerilyn Osei PA-C - Last Filed: 06/16/21 09:00> VTE Device Contraindication: N/A - Device Ordered <Jerilyn Osei PA-C - Last Filed: 06/16/21 09:00> VTE Drug Contraindication: N/A - Med Ordered <Jerilyn Osei PA-C - Last Filed: 06/16/21 09:00>
--- NOTE | 2021-06-16 11:17 | MHC.CM.PN ---
Patient has not yet been medically cleared for dc (IV Dilaudid/Abdominal pain, IV Zosyn, multiple loose BM). Home is the goal for dc and CM will continue to follow for possible need to adjust the dc plan.
--- NOTE | 2021-06-16 16:07 | PM.EVENT ---
Event Note Date of Service: 06/16/21 Event Note: GI Pt seen and examined. Full note dictated. Will plan colonoscopy tomorrow for further evaluation of RUQ pain and constipation. She is aware of risks and benefits and agrees to proceed.
[2021-06-16] MEDS: PEG 3350/Na Sulf,Bicarb,Cl/KCL 4,000 ML SOLN.RECON 4000 ML PO (18:22)
--- NOTE | 2021-06-16 18:54 | CONS_ITS ---
DATE OF SERVICE: 06/16/2021 REFERRING PHYSICIAN: Elian Holloway MD REASON FOR CONSULTATION: Abdominal pain and constipation. HISTORY OF PRESENT ILLNESS: The patient is a pleasant 56-year-old woman, who was admitted to the hospital on June 13 because of abdominal pain focused in the right upper quadrant. She states the symptoms have been present for about 2 weeks with radiation up into the back and were constant in nature and she has had associated diminishment in appetite as well as constipation despite taking laxatives. She was evaluated with CT scanning, which showed a gallstone and subsequently underwent ultrasound imaging as well as HIDA scan, which were not thought consistent with acute cholecystitis. She has had some change in her stools with no blood, but decrease in caliber of the stools. Consultation is requested for colonoscopy regarding further evaluation of her symptoms. The patient describes undergoing upper endoscopy and colonoscopy 10 to 15 years ago in [place] and she believes these were normal. PAST MEDICAL HISTORY: She denies other medical or surgical illnesses. CURRENT MEDICATIONS: Her current medication list is reviewed in the chart. ALLERGIES: CODEINE. FAMILY HISTORY: This is negative for GI malignancy. SOCIAL HISTORY: There is tobacco use approximately 1/2 pack per day. There is no history of substance abuse. She does use marijuana. REVIEW OF SYSTEMS: SKIN: No pruritus. HEENT: Negative. CARDIOPULMONARY: No shortness of breath or chest pain. GASTROINTESTINAL: As above. GENITOURINARY: Negative. NEUROPSYCHIATRIC: Negative. PHYSICAL EXAMINATION: GENERAL: Shows a pleasant female, lying comfortably in bed. VITAL SIGNS: Reviewed in the electronic medical record and are stable. SKIN: Anicteric. HEENT: Shows no scleral icterus. NECK: Without lymphadenopathy or thyromegaly. LUNGS: Clear. HEART: Shows a regular rate and rhythm. S1, S2. No murmur. ABDOMEN: Obese, soft, and with mild tenderness to palpation over the right upper quadrant, radiating up into the rib cage on the back. EXTREMITIES: Without edema. LABORATORY DATA: Reviewed including a white count of 8.4. Chemistries show an elevated glucose. Liver function tests have been normal. IMPRESSION: Abdominal pain, right upper quadrant with constipation and change in bowel habits. I discussed colonoscopy with the patient including risks and benefits. She understands these and agrees to proceed. This will be arranged for tomorrow. Thanks for asking me to see her. I will follow her in the hospital with you. MD KAREEM Aponte/LETICIA / [phone]
[2021-06-16] MEDS: Docusate Sodium 100 MG CAPSULE PO (23:01)
[2021-06-16] MEDS: Zolpidem Tartrate 5 MG TABLET PO (23:01)
[2021-06-17] VITALS (10 sets, daily range): BP systolic 137–167; BP diastolic 67–79; PULSE 62–102; RESP 16–22; TEMP 36.1–36.9; O2SAT 96–100
[2021-06-17] MEDS: ondansetron HCL 4 MG/2 ML VIAL IVPUSH ×2 (00:12→19:42)
[2021-06-17] MEDS: HYDROmorphone HCl 1 MG/ML SYRINGE 0.5 MG IVPUSH ×4 (02:22→19:42)
[2021-06-17] MEDS: Piperacillin Sodium/Tazobactam 3.375 GM in 0.9 % Sodium Chloride 50 ML IV ×3 (06:29→22:43)
[2021-06-17] MEDS: Albuterol Sulfate (0.083%) 2.5 MG/3 ML VIAL.NEB INHALE ×2 (07:57→16:00)
--- NOTE | 2021-06-17 08:03 | PM.PNGS ---
Subjective Subjective Date of Service: 06/17/21 Interval history: Patient is awaiting colonoscopy later today. Still having abdominal pain in the right upper quadrant. Physical Exam Vital Signs: Vital Signs: Last Vital Signs Temp 98.0 F 06/17/21 07:47 Pulse 69 06/17/21 07:58 Resp 18 06/17/21 07:47 BP 159/68 H 06/17/21 07:47 Pulse Ox 98 06/17/21 07:47 Body Mass Index 26.2 Const: General: cooperative and comfortable Nutritional Appearance: obese Orientation/consciousness: patient oriented x3 Limitations: no limitations Resp: Effort & Inspection: normal respiratory effort GI: Palpation (GI): Soft to palpation, Tenderness to palpation present (GI) in the RUQ; Negative for Davey's sign negative and No hepatosplenomegaly present Auscultation: normal bowel sounds Neuro: General: patient oriented x3 Extrem: General: Yes no clubbing, cyanosis or edema Procedures Date of Service Date of Service: 06/17/21 Progress Note: A&P Assessment and plan (1) Abdominal pain, right upper quadrant: Status: Acute Assessment and Plan: Abdominal pain in the right upper quadrant with change in her bowel habits. Appreciate Dr. Vigil's input. She is prepping for colonoscopy for later today. Further management based on test results. Fall Risk Details Current Medications: Current Medications Generic Name Dose Route Start Last Admin Trade Name Freq PRN Reason Stop Dose Admin Albuterol Sulfate 2 puff 06/13/21 09:01 Albuterol Sulfate 90 Mcg 8 Gm Inhaler INHALE RQ6H PRN Wheezing Albuterol Sulfate 2.5 mg 06/13/21 16:00 06/17/21 07:57 Albuterol Sulfate (0.083%) 2.5 Mg/3 Ml Vial.Neb INHALE 2.5 mg RQ4H WHILE AWAKE VICTORIANO Administration Docusate Sodium 100 mg 06/12/21 22:22 06/16/21 23:01 Docusate Sodium 100 Mg Capsule PO 100 mg BID VICTORIANO Administration Enoxaparin Sodium 40 mg 06/12/21 23:00 06/15/21 22:05 Enoxaparin Sodium 40 Mg/0.4 Ml Syringe SUBCUT 40 mg Q24H VICTORIANO Administration Hydrocortisone 1 appl 06/16/21 16:00 Hydrocortisone 1 % Ointment 28.35 Gm Tube TOPICAL BID PRN Perineal Discomfort Protocol Hydromorphone HCl 0.5 mg 06/14/21 12:15 06/17/21 06:27 Hydromorphone Hcl 1 Mg/Ml Syringe IVPUSH 0.5 mg Q3H PRN Administration Pain, Severe (Pain Scale 7-10) Protocol Piperacillin Sod/Tazobactam 50 mls @ 100 mls/hr 06/12/21 23:00 06/17/21 07:29 Sod 3.375 gm/ Sodium Chloride IV Infused Q6H [facility] Infusion Acetaminophen 1,000 mg in 100 mls @ 400 mls/hr 06/15/21 08:15 Ofirmev IV Q6H PRN abdominal pain Magnesium Hydroxide 30 ml 06/12/21 22:22 06/15/21 01:48 Milk Of Magnesia 30 Ml Oral.Susp PO 30 ml DAILY PRN Administration Constipation Ondansetron HCl 4 mg 06/12/21 22:22 06/17/21 00:12 Ondansetron Hcl 4 Mg/2 Ml Vial IVPUSH 4 mg Q8H PRN Administration Nausea and Vomiting Polyethylene Glycol 17 gm 06/13/21 09:05 06/16/21 07:57 Polyethylene Glycol 3350 17 Gm Powd.Pack PO Not Given DAILY [facility] Sodium Biphosphate/Sodium Phosphate 133 ml 06/15/21 08:02 Sodium Phosphate,[place]-Dibasic 133 Ml Enema ID ONCE PRN Constipation Zolpidem Tartrate 5 mg 06/12/21 22:22 06/16/21 23:01 Zolpidem Tartrate 5 Mg Tablet PO 5 mg BEDTIME PRN Administration Insomnia Time Spent With Patient Time: Total time spent is greater than 50% in coordination of care (as documented) at patient's floor/unit and/or counseling patient: Time with patient: 15 - 24 minutes Quality Stroke Does the patient have a stroke diagnosis?: No VTE Prior VTE?: No VTE Risk Level:: Surgical - high VTE Device Contraindication: N/A - Device Ordered VTE Drug Contraindication: N/A - Med Ordered
--- NOTE | 2021-06-17 08:51 | MHC.SHP ---
Pre-Procedural Eval Section A Date of Service: 06/17/21 The patient is an INPATIENT: Yes Changes since office visit: No Cold of Flu in the past 2 weeks, No New Medical Problems, No Changes in Medication and No Patient answered all questions The History & Physical has been completed within 30 days and I have reviewed it.: Yes Section B Chief Complaint: acute cholecystitis Allergies: Allergies Allergy/AdvReac Type Severity Reaction Status Date / Time codeine [CODEINE] AdvReac Unknown TYL #3 - Verified 06/12/21 13:22 HEADACHE Plan I have reviewed the history and physical and performed a pertinent physical examination on my patient. No changes have occurred unless specified.
--- NOTE | 2021-06-17 08:58 | HO.ANESPROP2 ---
HPI - Anesthesia Eval Consult details Narrative: Abdominal Pain and constipation for Colonoscopy [facility] Active Problems Active Problems: All Active Problems (Updated 06/14/21 @ 09:46 by Sylvia Cavazos NP) COPD exacerbation (Acute) Biliary colic (Acute) Abdominal pain, right upper quadrant (Acute) Cholelithiasis (Acute) COPD (chronic obstructive pulmonary disease) (Acute) Obesity (Acute) Tobacco use (Acute) Past Medical History Medical History COPD (chronic obstructive pulmonary disease) No known health problems Obesity Tobacco use Family History Family history of problems with anesthesia: No Social History Social History Household Members: Family Housing: House Do you presently have visiting nurse or other home services: No Alcohol intake: never Patient Tobacco Use Status: Current everyday Tobacco user Tobacco use type: Cigarette Cigarettes Per Day: 10 Smoked in Last 30 Days: Yes Patient Interested in Nicotine Replacement: Yes Use of substances other than those prescribed or required for medical reasons: Yes Substance Use Type: Marijuana Currently Displaying Signs/Symptoms of Drug Intoxication Withdrawal: No Have you been hit, kicked, punched, or otherwise hurt by someone within the past year? If so, by whom?: No Do you feel safe in your current relationship?: Yes Is there a partner from a previous relationship who is making you feel unsafe now?: No Are you made to feel afraid or neglected: No Advance Directives: Yes Advance Directives Information Provided: Yes Advance Directives on File: No Advance Directives Date on File: 06/12/21 Do you have thoughts of harming others: None Do you have a plan to hurt others: No Plan Recently lost weight without trying: No Nutrition Risks: No Nutritional Risk Patient : No : No Poor oral hygiene: No service: No Current occupational status: unemployed Meds Allergies Allergy/AdvReac Type Severity Reaction Status Date / Time codeine [CODEINE] AdvReac Unknown TYL #3 - Verified 06/12/21 13:22 HEADACHE Active Medications: Current Medications Generic Name Dose Route Start Last Admin Trade Name Freq PRN Reason Stop Dose Admin Albuterol Sulfate 2 puff 06/13/21 09:01 Albuterol Sulfate 90 Mcg 8 Gm Inhaler INHALE RQ6H PRN Wheezing Albuterol Sulfate 2.5 mg 06/13/21 16:00 06/17/21 07:57 Albuterol Sulfate (0.083%) 2.5 Mg/3 Ml Vial.Neb INHALE 2.5 mg RQ4H WHILE AWAKE VICTORIANO Administration Docusate Sodium 100 mg 06/12/21 22:22 06/17/21 08:22 Docusate Sodium 100 Mg Capsule PO Not Given BID VICTORIANO Enoxaparin Sodium 40 mg 06/12/21 23:00 06/15/21 22:05 Enoxaparin Sodium 40 Mg/0.4 Ml Syringe SUBCUT 40 mg Q24H VICTORIANO Administration Hydrocortisone 1 appl 06/16/21 16:00 Hydrocortisone 1 % Ointment 28.35 Gm Tube TOPICAL BID PRN Perineal Discomfort Protocol Hydromorphone HCl 0.5 mg 06/14/21 12:15 06/17/21 06:27 Hydromorphone Hcl 1 Mg/Ml Syringe IVPUSH 0.5 mg Q3H PRN Administration Pain, Severe (Pain Scale 7-10) Protocol Piperacillin Sod/Tazobactam 50 mls @ 100 mls/hr 06/12/21 23:00 06/17/21 07:29 Sod 3.375 gm/ Sodium Chloride IV Infused Q6H VICTORIANO Infusion Acetaminophen 1,000 mg in 100 mls @ 400 mls/hr 06/15/21 08:15 Ofirmev IV Q6H PRN abdominal pain Magnesium Hydroxide 30 ml 06/12/21 22:22 06/15/21 01:48 Milk Of Magnesia 30 Ml Oral.Susp PO 30 ml DAILY PRN Administration Constipation Ondansetron HCl 4 mg 06/12/21 22:22 06/17/21 00:12 Ondansetron Hcl 4 Mg/2 Ml Vial IVPUSH 4 mg Q8H PRN Administration Nausea and Vomiting Polyethylene Glycol 17 gm 06/13/21 09:05 06/17/21 08:22 Polyethylene Glycol 3350 17 Gm Powd.Pack PO Not Given DAILY VICTORIANO Sodium Biphosphate/Sodium Phosphate 133 ml 06/15/21 08:02 Sodium Phosphate,[place]-Dibasic 133 Ml Enema [place] ONCE PRN Constipation Zolpidem Tartrate 5 mg 06/12/21 22:22 06/16/21 23:01 Zolpidem Tartrate 5 Mg Tablet PO 5 mg BEDTIME PRN Administration Insomnia Exam Exam Date and Time: June 17, 2021 0858 Height,Weight and Vital Signs: Height 5 ft 10 in Weight 83.1 kg Last Vital Signs Temp 98.0 F 06/17/21 07:47 Pulse 69 06/17/21 07:58 Resp 18 06/17/21 07:47 BP 159/68 H 06/17/21 07:47 Pulse Ox 98 06/17/21 07:47 Pertinent Lab Results Pertinent Lab Results: Laboratory Tests 06/12/21 06/12/21 06/12/21 14:23 14:23 14:23 WBC 10.8 RBC 4.70 Hgb 13.5 Hct 38.6 MCV 82.1 MCH 28.7 MCHC 35.0 RDW 13.6 Plt Count 206 MPV 10.2 Immature Gran % (Auto) 0.4 Neut % (Auto) 67.7 Lymph % (Auto) 22.6 Wilkinson % (Auto) 5.9 Eos % (Auto) 3.0 Baso % (Auto) 0.4 Lymph # (Auto) 2.4 Wilkinson # (Auto) 0.6 Eos # (Auto) 0.3 Baso # (Auto) 0.0 Abs Immat Gran (auto) 0.04 H Absolute Neuts (auto) 7.3 Absolute Nucleated RBC 0.000 Nucleated RBC % (auto) 0.0 Sodium 138 Potassium 4.4 Chloride 106 Carbon Dioxide 23 Anion Gap 13 BUN 17 H Creatinine 0.90 Estim Creat Clear Calc 97.2 Estimated GFR > 60 Random Glucose 150 H Calcium 9.5 Magnesium Total Bilirubin 0.4 Direct Bilirubin < 0.2 AST 8 ALT 12 Alkaline Phosphatase 112 Troponin I High Sens Total Protein 6.9 Albumin 4.0 Lipase 58 Urine Color Urine Appearance Urine pH Ur Specific [place] Urine Protein Urine Glucose (UA) Urine Ketones Urine Blood Urine Nitrite Ur Leukocyte Esterase COVID-19 ([facility]) COVID-19 Clin Com 06/12/21 06/12/21 06/12/21 14:23 14:23 16:58 WBC RBC Hgb Hct MCV MCH MCHC RDW Plt Count MPV Immature Gran % (Auto) Neut % (Auto) Lymph % (Auto) Wilkinson % (Auto) Eos % (Auto) Baso % (Auto) Lymph # (Auto) Wilkinson # (Auto) Eos # (Auto) Baso # (Auto) Abs Immat Gran (auto) Absolute Neuts (auto) Absolute Nucleated RBC Nucleated RBC % (auto) Sodium Potassium Chloride Carbon Dioxide Anion Gap BUN Creatinine Estim Creat Clear Calc Estimated GFR Random Glucose Calcium Magnesium 2.0 Total Bilirubin Direct Bilirubin AST ALT Alkaline Phosphatase Troponin I High Sens < 3.5 Total Protein Albumin Lipase Urine Color YELLOW Urine Appearance CLEAR Urine pH 6.0 Ur Specific [place] <= 1.005 Urine Protein NEG Urine Glucose (UA) NEG Urine Ketones NEG Urine Blood NEG Urine Nitrite NEG Ur Leukocyte Esterase NEG COVID-19 ([facility]) COVID-19 Clin Com 06/12/21 06/13/21 06/13/21 20:10 05:49 05:49 WBC 8.4 RBC 4.47 Hgb 12.4 Hct 38.0 MCV 85.0 MCH 27.7 MCHC 32.6 RDW 13.9 Plt Count 185 MPV 10.6 Immature Gran % (Auto) 0.4 Neut % (Auto) 64.3 Lymph % (Auto) 25.1 Wilkinson % (Auto) 6.3 Eos % (Auto) 3.5 Baso % (Auto) 0.4 Lymph # (Auto) 2.1 Wilkinson # (Auto) 0.5 Eos # (Auto) 0.3 Baso # (Auto) 0.0 Abs Immat Gran (auto) 0.03 Absolute Neuts (auto) 5.4 Absolute Nucleated RBC 0.000 Nucleated RBC % (auto) 0.0 Sodium 141 Potassium 4.2 Chloride 107 Carbon Dioxide 26 Anion Gap 12 BUN 12 Creatinine 0.93 Estim Creat Clear Calc 94.1 Estimated GFR > 60 Random Glucose 146 H Calcium 8.9 D Magnesium Total Bilirubin Direct Bilirubin AST ALT Alkaline Phosphatase Troponin I High Sens Total Protein Albumin Lipase Urine Color Urine Appearance Urine pH Ur Specific [place] Urine Protein Urine Glucose (UA) Urine Ketones Urine Blood Urine Nitrite Ur Leukocyte Esterase COVID-19 ([facility]) Negative COVID-19 Clin Com See Note Airway Mallampati Class: III TM Dist: >3cm Neck ROM: Full Loose/Missing/Broken Teeth: Yes Heart: [id number] Lungs: + b/s bilaterally Assessment and Plan Assessment Anesthesia Assessment: Anesthesia Plan Discussed and Chart Reviewed Final Anesthetic Review Family History of Problems with Anesthesia: No NPO: Yes ASA Class: III Final Preanesthetic Review: No Changes in Pt Med Stat, Meds/Allgs Chart Reviewed, Consent Obtained/Reviewed and Anes Risks/Benef Reviewed Patient Risk: Intermediate Procedure Risk: Low Assessment/Block/Sedation in SS: Assess/Block/Sedation-SS Anesthetic Plan Anesthetic Plan: MAC: and Agree w/ Assess. and Plan Disposition: Standard PACU
--- NOTE | 2021-06-17 10:38 | P.BOP_ITS ---
Brief Operative Note Date of Service: 06/17/21 Pre-op diagnosis: RUQ pain, constipation Post-op diagnosis: same (focal colitis, colon polyps X3) Procedure: colonoscopy Surgeon: Faizan Vigil Anesthesia: MAC Was an Ballet Dancer used for this Procedure?: No Estimated blood loss (mL): 5 Pathology: other (bxs ti, cecum, tv colon rectum, polyps x3) Condition: stable Disposition: PACU
--- NOTE | 2021-06-17 10:40 | PM.EVENT ---
Event Note Date of Service: 06/17/21 Event Note: colonoscopy note dictated 2 areas of focal colitis in cecum, biopsied remainder of colon normal, random biopsies taken polyps x4 snared, 50cm, 30 cm, rectum x2 all less than 10 mm rec: advance diet bentyl for abd pain f/u bx results hold off on treatment of colitis, given its focal nature and doubtful clinical significance.
--- NOTE | 2021-06-17 10:52 | OP_ITS ---
SURGEON: Faizan Vigil MD INDICATIONS: Right upper quadrant pain, constipation, and change in bowel habits. PREOPERATIVE DIAGNOSIS: POSTOPERATIVE DIAGNOSIS: PROCEDURE PERFORMED: Colonoscopy to the terminal ileum with biopsy and snare polypectomy. ESTIMATED BLOOD LOSS: COMPLICATIONS: ANESTHESIA: ASSISTANTS: SPECIMENS: MEDICATIONS: Monitored anesthesia care. DESCRIPTION OF PROCEDURE: History and physical performed. The risks and benefits of the procedure were explained to the patient. Informed consent was obtained. The patient was placed in the left lateral decubitus position. A digital rectal exam was performed and was found to be normal. The Olympus pediatric video colonoscope was introduced into the rectum and advanced to the cecum without difficulty. The cecum was identified by transillumination, palpation, and identification of ileocecal valve. Examination was performed and the scope was removed. She tolerated the procedure well and was taken to recovery area in stable condition. FINDINGS: The terminal ileum was normal. This was biopsied. In the cecum, there were 2 focal areas of colitis that appeared consistent with resolving acute colitis, possibly ischemic, possibly infectious. Both areas measured approximately 2 x 4 cm and had punctate superficial ulceration. Biopsies were obtained from the mucosa. There was no other colitis and the remaining colon biopsies were obtained from the transverse colon and rectum. A total of 4 polyps were identified and removed with a snare. These were located at 50 cm, 30 cm, and 2 in the rectum, all measured less than 10 mm. No other polyps were identified. Retroflexed examination was normal. The quality of the prep was good. IMPRESSION: 1. Colon polyps. 2. Focal area of resolving colitis as above. RECOMMENDATIONS: 1. Follow up the biopsy results. 2. Begin dicyclomine. MD KAREEM Aponte/LETICIA / [phone]
[2021-06-17] MEDS: Dicyclomine HCl 10 MG CAPSULE 20 MG PO ×3 (12:20→19:41)
[2021-06-17] MEDS: oxyCODONE HCl Immed Release 5 MG TABLET 10 MG PO ×2 (14:07→22:14)
--- NOTE | 2021-06-17 18:41 | PC.NURSE ---
Patient underwent colonoscopy this AM. Still reporting 7 to 10 out of 10 abdominal/back pain. Oxycodone 10 mg provided minimal relief, patient reports increased relief with dilaudid. Patient tolerating regular diet. Amb frequently around room and hallway.
[2021-06-17] MEDS: Zolpidem Tartrate 5 MG TABLET PO (22:09)
[2021-06-17] MEDS: Enoxaparin Sodium 40 MG/0.4 ML SYRINGE SUBCUT (22:09)
[2021-06-18] VITALS (8 sets, daily range): BP systolic 95–151; BP diastolic 53–70; PULSE 54–72; RESP 17–20; TEMP 36–36.9; O2SAT 95–100
[2021-06-18] MEDS: HYDROmorphone HCl 1 MG/ML SYRINGE 0.5 MG IVPUSH ×3 (03:36→18:44)
[2021-06-18] MEDS: Piperacillin Sodium/Tazobactam 3.375 GM in 0.9 % Sodium Chloride 50 ML IV ×4 (05:06→21:54)
[2021-06-18] MEDS: ondansetron HCL 4 MG/2 ML VIAL IVPUSH (05:42)
[2021-06-18] MEDS: oxyCODONE HCl Immed Release 5 MG TABLET 10 MG PO ×2 (06:30→10:15)
[2021-06-18] MEDS: Dicyclomine HCl 10 MG CAPSULE 20 MG PO ×4 (06:30→21:54)
--- NOTE | 2021-06-18 08:07 | P.PNGS_ITS ---
Subjective Subjective Date of Service: 06/18/21 Interval history: Patient tolerated colonoscopy well. Small focal areas of colitis were identified in several small polyps. No evidence of obstruction or tumor. Patient continues to have waves of pain extending into the back. Physical Exam Vital Signs: Vital Signs: Last Vital Signs Temp 97.0 F 06/18/21 03:33 Pulse 67 06/18/21 03:33 Resp 18 06/18/21 03:33 BP 131/63 06/18/21 03:33 Pulse Ox 100 06/18/21 03:33 Body Mass Index 26.2 Const: General: alert and awake Nutritional Appearance: obese Orientation/consciousness: patient oriented x3 Limitations: no limitations Eyes: Sclerae: sclerae normal EOM: EOMs intact bilaterally GI: Other: Soft, tender right upper quadrant, no rebound, no guarding, normal bowel sounds. Skin: Other: Normal color, warm, dry, no rashes Neuro: General: patient oriented x3 Extrem: Other: No edema Procedures Date of Service Date of Service: 06/18/21 Progress Note: A&P Assessment and plan (1) Abdominal pain, right upper quadrant: Status: Acute Assessment and Plan: Patient with continued right upper quadrant abdominal pain. Large gallstone with normal HIDA scan however the patient continues to have pain in the right upper quadrant. Colonoscopy ruled out any GI malignancy or obstruction. We discussed performing laparoscopic or possible open cholecystectomy. I discussed possibly adding her onto the schedule for today verses Monday. She wishes to have 1 more day and would like to talk to her regarding this. I will put her on the schedule for Monday. I will check back later to discuss further with the patient. Fall Risk Details Current Medications: Current Medications Generic Name Dose Route Start Last Admin Trade Name Freq PRN Reason Stop Dose Admin Albuterol Sulfate 2 puff 06/13/21 09:01 Albuterol Sulfate 90 Mcg 8 Gm Inhaler INHALE RQ6H PRN Wheezing Albuterol Sulfate 2.5 mg 06/13/21 16:00 06/18/21 07:28 Albuterol Sulfate (0.083%) 2.5 Mg/3 Ml Vial.Neb INHALE Not Given RQ4H WHILE AWAKE VICTORIANO Dicyclomine HCl 20 mg 06/17/21 11:30 06/18/21 06:30 Dicyclomine Hcl 10 Mg Capsule PO 20 mg QIDACHS VICTORIANO Administration Docusate Sodium 100 mg 06/12/21 22:22 06/17/21 19:41 Docusate Sodium 100 Mg Capsule PO Not Given BID [facility] Enoxaparin Sodium 40 mg 06/12/21 23:00 06/17/21 22:09 Enoxaparin Sodium 40 Mg/0.4 Ml Syringe SUBCUT 40 mg Q24H VICTORIANO Administration Hydrocortisone 1 appl 06/16/21 16:00 Hydrocortisone 1 % Ointment 28.35 Gm Tube TOPICAL BID PRN Perineal Discomfort Protocol Hydromorphone HCl 0.5 mg 06/14/21 12:15 06/18/21 03:36 Hydromorphone Hcl 1 Mg/Ml Syringe IVPUSH 0.5 mg Q3H PRN Administration Pain, Severe (Pain Scale 7-10) Protocol Piperacillin Sod/Tazobactam 50 mls @ 100 mls/hr 06/12/21 23:00 06/18/21 06:09 Sod 3.375 gm/ Sodium Chloride IV Infused Q6H [facility] Infusion Acetaminophen 1,000 mg in 100 mls @ 400 mls/hr 06/17/21 16:00 06/18/21 04:03 Ofirmev IV 06/18/21 10:14 Infused Q6H [facility] Infusion Magnesium Hydroxide 30 ml 06/12/21 22:22 06/15/21 01:48 Milk Of Magnesia 30 Ml Oral.Susp PO 30 ml DAILY PRN Administration Constipation Ondansetron HCl 4 mg 06/12/21 22:22 06/18/21 05:42 Ondansetron Hcl 4 Mg/2 Ml Vial IVPUSH 4 mg Q8H PRN Administration Nausea and Vomiting Ondansetron HCl 4 mg 06/17/21 09:00 Ondansetron Hcl 4 Mg/2 Ml Vial IVPUSH ONCE PRN Nausea and Vomiting Oxycodone HCl 5 mg 06/17/21 13:20 Oxycodone Hcl Immed Release 5 Mg Tablet PO Q4H PRN Pain, Moderate (Pain Scale 4-6 Oxycodone HCl 10 mg 06/17/21 13:20 06/18/21 06:30 Oxycodone Hcl Immed Release 5 Mg Tablet PO 10 mg Q4H PRN Administration Pain, Severe (Pain Scale 7-10) Polyethylene Glycol 17 gm 06/13/21 09:05 06/17/21 08:22 Polyethylene Glycol 3350 17 Gm Powd.Pack PO Not Given DAILY VICTORIANO Sodium Biphosphate/Sodium Phosphate 133 ml 06/15/21 08:02 Sodium Phosphate,[place]-Dibasic 133 Ml Enema [place] ONCE PRN Constipation Zolpidem Tartrate 5 mg 06/12/21 22:22 06/17/21 22:09 Zolpidem Tartrate 5 Mg Tablet PO 5 mg BEDTIME PRN Administration Insomnia Time Spent With Patient Time: Total time spent is greater than 50% in coordination of care (as documented) at patient's floor/unit and/or counseling patient: Time with patient: 15 - 24 minutes Quality Stroke Does the patient have a stroke diagnosis?: No VTE Prior VTE?: No VTE Risk Level:: Surgical - high VTE Device Contraindication: N/A - Device Ordered VTE Drug Contraindication: N/A - Med Ordered
--- NOTE | 2021-06-18 11:09 | MHC.CM.PN ---
Patient is not yet medically cleared for dc (PAIN-IV ACETAMINOPHEN & IV DILAUDID today, IV Zosyn). Home is the goal for dc and CM will follow for possible need to adjust the dc plan.
[2021-06-18] MEDS: Albuterol Sulfate (0.083%) 2.5 MG/3 ML VIAL.NEB INHALE ×3 (11:13→19:54)
--- NOTE | 2021-06-18 12:49 | HO.POSTANES ---
Post Anesthesia Evaluation Post Anesthesia Evaluation Vital Signs: Vital Signs Temp Pulse Resp BP Pulse Ox 06/18/21 11:14 72 06/18/21 11:13 98.5 F 60 17 132/60 98 06/18/21 08:17 96.8 F 59 18 107/53 L 100 06/18/21 03:33 97.0 F 67 18 131/63 100 Anesthesia: Monitored Mental Status: Awake Pain Control: Satisfactory Nausea/Vomiting: None Hydration: Adequate Anesthesia-Related Issues: No Anes. Related Issues
[2021-06-18] MEDS: Zolpidem Tartrate 5 MG TABLET PO (21:53)
[2021-06-18] MEDS: Enoxaparin Sodium 40 MG/0.4 ML SYRINGE SUBCUT (21:53)
--- NOTE | 2021-06-18 22:47 | PC.NURSE ---
[id number] plan to transfer pt to rm [id number], discussed amongst staff. pt updated and agreeable to plan. 2 RN's transferred pt in bed with personal belongings. iv Rfa flushed with ease. report given to Mario TURPIN.
[2021-06-19] VITALS (8 sets, daily range): BP systolic 108–137; BP diastolic 56–78; PULSE 65–73; RESP 18–20; TEMP 36.4–36.8; O2SAT 97–99
[2021-06-19] MEDS: Piperacillin Sodium/Tazobactam 3.375 GM in 0.9 % Sodium Chloride 50 ML IV ×4 (05:57→22:35)
[2021-06-19] MEDS: Albuterol Sulfate (0.083%) 2.5 MG/3 ML VIAL.NEB INHALE ×3 (07:32→19:45)
[2021-06-19] MEDS: Dicyclomine HCl 10 MG CAPSULE 20 MG PO ×4 (08:08→21:10)
[2021-06-19] MEDS: HYDROmorphone HCl 1 MG/ML SYRINGE 0.5 MG IVPUSH ×4 (08:08→21:09)
--- NOTE | 2021-06-19 11:32 | PM.PNGS ---
Subjective Subjective Date of Service: 06/19/21 Interval history: Feeling a little nervous about planned surgery, laparoscopic cholecystectomy scheduled for Monday. She reports continued difficulty with right upper quadrant pain radiating into her back, intermittent nausea. Physical Exam Vital Signs: Vital Signs: Last Vital Signs Temp 97.2 F 06/18/21 19:04 Pulse 72 06/19/21 11:24 Resp 18 06/19/21 11:23 BP 129/60 06/18/21 19:04 Pulse Ox 98 06/18/21 19:04 Body Mass Index 26.2 Const: General: cooperative, no acute distress, alert and anxious (Mildly) Resp: Effort & Inspection: normal respiratory effort Auscultation: clear to auscultation bilaterally Cardio: Rate: regular rate Rhythm: regular rhythm GI: Other: Soft, nondistended, mildly tender right upper quadrant with voluntary guarding no palpable masses Skin: Other: Normal color, warm and dry Procedures Date of Service Date of Service: 06/19/21 Progress Note: A&P Assessment and plan (1) Cholelithiasis: Status: Acute (2) Abdominal pain, right upper quadrant: Status: Acute (3) Biliary colic: Status: Acute (4) COPD (chronic obstructive pulmonary disease): Status: Acute Assessment and Plan: 56-year-old female admitted with right upper quadrant abdominal pain radiating to the back, cholelithiasis without evidence of acute cholecystitis. No other etiology for persistent complaints has been identified. Scheduled for laparoscopic cholecystectomy with Dr. Holloway on 06/21/2021. Discussed plan for surgery and possibility that her symptoms will not be fully relieved with her. History of COPD. Appears stable from a respiratory standpoint. Continue incentive spirometry, albuterol p.r.n. Fall Risk Details Current Medications: Current Medications Generic Name Dose Route Start Last Admin Trade Name Freq PRN Reason Stop Dose Admin Albuterol Sulfate 2 puff 06/13/21 09:01 Albuterol Sulfate 90 Mcg 8 Gm Inhaler INHALE RQ6H PRN Wheezing Albuterol Sulfate 2.5 mg 06/13/21 16:00 06/19/21 11:22 Albuterol Sulfate (0.083%) 2.5 Mg/3 Ml Vial.Neb INHALE 2.5 mg RQ4H WHILE AWAKE VICTORIANO Administration Dicyclomine HCl 20 mg 06/17/21 11:30 06/19/21 11:22 Dicyclomine Hcl 10 Mg Capsule PO 20 mg QIDACHS VICTORIANO Administration Docusate Sodium 100 mg 06/12/21 22:22 06/19/21 08:12 Docusate Sodium 100 Mg Capsule PO Not Given BID [facility] Enoxaparin Sodium 40 mg 06/12/21 23:00 06/18/21 21:53 Enoxaparin Sodium 40 Mg/0.4 Ml Syringe SUBCUT 40 mg Q24H VICTORIANO Administration Hydrocortisone 1 appl 06/16/21 16:00 Hydrocortisone 1 % Ointment 28.35 Gm Tube TOPICAL BID PRN Perineal Discomfort Protocol Hydromorphone HCl 0.5 mg 06/14/21 12:15 06/19/21 11:23 Hydromorphone Hcl 1 Mg/Ml Syringe IVPUSH 0.5 mg Q3H PRN Administration Pain, Severe (Pain Scale 7-10) Protocol Piperacillin Sod/Tazobactam 50 mls @ 100 mls/hr 06/12/21 23:00 06/19/21 11:22 Sod 3.375 gm/ Sodium Chloride IV 100 mls/hr Q6H VICTORIANO Administration Magnesium Hydroxide 30 ml 06/12/21 22:22 06/15/21 01:48 Milk Of Magnesia 30 Ml Oral.Susp PO 30 ml DAILY PRN Administration Constipation Ondansetron HCl 4 mg 06/12/21 22:22 06/18/21 05:42 Ondansetron Hcl 4 Mg/2 Ml Vial IVPUSH 4 mg Q8H PRN Administration Nausea and Vomiting Ondansetron HCl 4 mg 06/17/21 09:00 Ondansetron Hcl 4 Mg/2 Ml Vial IVPUSH ONCE PRN Nausea and Vomiting Oxycodone HCl 5 mg 06/17/21 13:20 Oxycodone Hcl Immed Release 5 Mg Tablet PO Q4H PRN Pain, Moderate (Pain Scale 4-6 Oxycodone HCl 10 mg 06/17/21 13:20 06/18/21 10:15 Oxycodone Hcl Immed Release 5 Mg Tablet PO 10 mg Q4H PRN Administration Pain, Severe (Pain Scale 7-10) Polyethylene Glycol 17 gm 06/13/21 09:05 06/19/21 08:12 Polyethylene Glycol 3350 17 Gm Powd.Pack PO Not Given DAILY VICTORIANO Sodium Biphosphate/Sodium Phosphate 133 ml 06/15/21 08:02 Sodium Phosphate,[place]-Dibasic 133 Ml Enema [place] ONCE PRN Constipation Zolpidem Tartrate 5 mg 06/12/21 22:22 06/18/21 21:53 Zolpidem Tartrate 5 Mg Tablet PO 5 mg BEDTIME PRN Administration Insomnia Time Spent With Patient Time: Total time spent is greater than 50% in coordination of care (as documented) at patient's floor/unit and/or counseling patient: Time with patient: 15 - 24 minutes Quality Stroke Does the patient have a stroke diagnosis?: No VTE Prior VTE?: No VTE Risk Level:: Surgical - high VTE Device Contraindication: N/A - Device Ordered VTE Drug Contraindication: N/A - Med Ordered
[2021-06-19] MEDS: Enoxaparin Sodium 40 MG/0.4 ML SYRINGE SUBCUT (21:11)
[2021-06-19] MEDS: Zolpidem Tartrate 5 MG TABLET PO (22:34)
[2021-06-20] VITALS (14 sets, daily range): BP systolic 120–153; BP diastolic 55–86; PULSE 60–74; RESP 16–20; TEMP 36.1–37; O2SAT 94–100
[2021-06-20] MEDS: HYDROmorphone HCl 1 MG/ML SYRINGE 0.5 MG IVPUSH ×6 (03:59→21:33)
[2021-06-20 05:44] LABS: Hematocrit 33.5 % (37-47); Mean Corpuscular HGB Conc 32.8 g/dl (31.0-35.0); Mean Corpuscular Hemoglobin 27.7 pg (27.0-33.0); Mean Corpuscular Volume 84.4 fL (80-98); Platelet Count 164 X10*3/uL (160-400); Red Blood Count 3.97 X10*6/uL (4.20-5.50); Red Cell Distribution Width 13.8 % (11.0-16.0); White Blood Count 8.4 X10*3/uL (4.8-10.8)
[2021-06-20 06:00] LABS: Anion Gap 10 (12-20); Blood Urea Nitrogen 10 mg/dL (9-16); Carbon Dioxide 25 mmol/L (22-29); Chloride 108 mmol/L (96-108); Creatinine Clr Calc Pharmacy 81.9; Estimated Glomerular Filt Rate > 60; Glucose Fasting 166 mg/dL (60-99); Potassium 4.2 mmol/L (3.3-5.1); Sodium 139 mmol/L (135-145)
[2021-06-20] MEDS: ondansetron HCL 4 MG/2 ML VIAL IVPUSH ×2 (07:45→16:33)
[2021-06-20] MEDS: Dicyclomine HCl 10 MG CAPSULE 20 MG PO ×4 (07:45→21:06)
--- NOTE | 2021-06-20 11:42 | P.PNGS_ITS ---
Subjective Subjective Date of Service: 06/20/21 Interval history: Continues to report significant right upper quadrant abdominal pain radiating into the right upper back. No nausea. Requiring IV pain medication for control of pain. Physical Exam Vital Signs: Vital Signs: Last Vital Signs Temp 96.9 F 06/20/21 08:00 Pulse 68 06/20/21 08:00 Resp 18 06/20/21 10:56 BP 151/77 H 06/20/21 08:00 Pulse Ox 94 06/20/21 08:00 Body Mass Index 26.2 Laboratory Results - last 24 hr 06/20/21 06/20/21 04:51 04:51 WBC 8.4 RBC 3.97 L Hgb 11.0 L Hct 33.5 L MCV 84.4 MCH 27.7 MCHC 32.8 RDW 13.8 Plt Count 164 MPV 11.0 Absolute Nucleated RBC 0.000 Nucleated RBC % (a uto) 0.0 Sodium 139 Potassium 4.2 Chloride 108 Carbon Dioxide 25 Anion Gap 10 L BUN 10 Creatinine 0.90 Estim Creat Clear Calc 81.9 Estimated GFR > 60 Fasting Glucose 166 H Calcium 9.0 Const: General: cooperative, no acute distress and alert Resp: Effort & Inspection: normal respiratory effort Auscultation: rhonchi (Occasional) GI: Other: Soft, nondistended, diffuse mild tenderness present right upper quadrant, no palpable masses Skin: Other: Normal color, warm and dry Procedures Date of Service Date of Service: 06/20/21 Progress Note: A&P Assessment and plan (1) Biliary colic: Status: Acute (2) Abdominal pain, right upper quadrant: Status: Acute (3) COPD (chronic obstructive pulmonary disease): Status: Acute Assessment and Plan: 56-year-old female with cholelithiasis, persistent right upper quadrant pain likely secondary to chronic cholecystitis. Scheduled for laparoscopic cholecystectomy with Dr. Holloway tomorrow. Reviewed plans with her and anticipated course of recovery. History of COPD, stable Blood sugars have been somewhat elevated. Fasting glucose 166 today. Hemoglobin A1c ordered and pending. Fall Risk Details Current Medications: Current Medications Generic Name Dose Route Start Last Admin Trade Name Freq PRN Reason Stop Dose Admin Albuterol Sulfate 2 puff 06/13/21 09:01 Albuterol Sulfate 90 Mcg 8 Gm Inhaler INHALE RQ6H PRN Wheezing Albuterol Sulfate 2.5 mg 06/13/21 16:00 06/20/21 07:42 Albuterol Sulfate (0.083%) 2.5 Mg/3 Ml Vial.Neb INHALE Not Given RQ4H WHILE AWAKE [facility] Dicyclomine HCl 20 mg 06/17/21 11:30 06/20/21 10:57 Dicyclomine Hcl 10 Mg Capsule PO 20 mg QIDACHS VICTORIANO Administration Docusate Sodium 100 mg 06/12/21 22:22 06/20/21 08:01 Docusate Sodium 100 Mg Capsule PO Not Given BID VICTORIANO Enoxaparin Sodium 40 mg 06/12/21 23:00 06/19/21 21:11 Enoxaparin Sodium 40 Mg/0.4 Ml Syringe SUBCUT 40 mg Q24H VICTORIANO Administration Hydrocortisone 1 appl 06/16/21 16:00 Hydrocortisone 1 % Ointment 28.35 Gm Tube TOPICAL BID PRN Perineal Discomfort Protocol Hydromorphone HCl 0.5 mg 06/14/21 12:15 06/20/21 10:56 Hydromorphone Hcl 1 Mg/Ml Syringe IVPUSH 0.5 mg Q3H PRN Administration Pain, Severe (Pain Scale 7-10) Protocol Magnesium Hydroxide 30 ml 06/12/21 22:22 06/15/21 01:48 Milk Of Magnesia 30 Ml Oral.Susp PO 30 ml DAILY PRN Administration Constipation Ondansetron HCl 4 mg 06/12/21 22:22 06/20/21 07:45 Ondansetron Hcl 4 Mg/2 Ml Vial IVPUSH 4 mg Q8H PRN Administration Nausea and Vomiting Ondansetron HCl 4 mg 06/17/21 09:00 Ondansetron Hcl 4 Mg/2 Ml Vial IVPUSH ONCE PRN Nausea and Vomiting Oxycodone HCl 5 mg 06/17/21 13:20 Oxycodone Hcl Immed Release 5 Mg Tablet PO Q4H PRN Pain, Moderate (Pain Scale 4-6 Oxycodone HCl 10 mg 06/17/21 13:20 06/18/21 10:15 Oxycodone Hcl Immed Release 5 Mg Tablet PO 10 mg Q4H PRN Administration Pain, Severe (Pain Scale 7-10) Polyethylene Glycol 17 gm 06/13/21 09:05 06/20/21 08:01 Polyethylene Glycol 3350 17 Gm Powd.Pack PO Not Given DAILY VICTORIANO Simethicone 20 mg 06/19/21 21:17 06/20/21 07:46 Simethicone 40 Mg/0.6 Ml 30 Ml Drops.Susp PO 20 mg QID PRN Administration Gas Sodium Biphosphate/Sodium Phosphate 133 ml 06/15/21 08:02 Sodium Phosphate,[place]-Dibasic 133 Ml Enema [place] ONCE PRN Constipation Zolpidem Tartrate 5 mg 06/12/21 22:22 06/19/21 22:34 Zolpidem Tartrate 5 Mg Tablet PO 5 mg BEDTIME PRN Administration Insomnia Time Spent With Patient Time: Total time spent is greater than 50% in coordination of care (as documented) at patient's floor/unit and/or counseling patient: Time with patient: less than 15 minutes Quality Stroke Does the patient have a stroke diagnosis?: No VTE Prior VTE?: No VTE Risk Level:: Surgical - high VTE Device Contraindication: N/A - Device Ordered VTE Drug Contraindication: N/A - Med Ordered
[2021-06-20] MEDS: Albuterol Sulfate (0.083%) 2.5 MG/3 ML VIAL.NEB INHALE ×3 (11:46→20:23)
[2021-06-20] MEDS: Simethicone 80 MG TAB.CHEW PO ×2 (12:54→21:07)
[2021-06-20] MEDS: Zolpidem Tartrate 5 MG TABLET PO (21:07)
[2021-06-21] VITALS (16 sets, daily range): BP systolic 109–151; BP diastolic 34–86; PULSE 65–85; RESP 14–20; TEMP 36.1–36.8; O2SAT 94–100
[2021-06-21] MEDS: HYDROmorphone HCl 1 MG/ML SYRINGE 0.5 MG IVPUSH ×4 (04:18→20:46)
--- NOTE | 2021-06-21 07:21 | HO.ANESPROP2 ---
[facility] Active Problems Active Problems: All Active Problems (Updated 06/14/21 @ 09:46 by Sylvia Cavazos NP) Biliary colic (Acute) Abdominal pain, right upper quadrant (Acute) Cholelithiasis (Acute) COPD (chronic obstructive pulmonary disease) (Acute) COPD exacerbation (Acute) Obesity (Acute) Tobacco use (Acute) Past Medical History Medical History COPD (chronic obstructive pulmonary disease) No known health problems Obesity Tobacco use Family History Family history of problems with anesthesia: No Surgical History Surgical History Hx of section History of Problems with Anesthesia: No Social History Social History Household Members: Family Housing: House Do you presently have visiting nurse or other home services: No Alcohol intake: never Patient Tobacco Use Status: Current everyday Tobacco user Tobacco use type: Cigarette Cigarettes Per Day: 10 Substance Use Type: Marijuana Advance Directives Date on File: 06/12/21 service: No Current occupational status: unemployed Meds Allergies Allergy/AdvReac Type Severity Reaction Status Date / Time codeine [CODEINE] AdvReac Severe TYL #3 - Verified 06/21/21 06:32 HEADACHE Active Medications: Current Medications Generic Name Dose Route Start Last Admin Trade Name Freq PRN Reason Stop Dose Admin Albuterol Sulfate 2 puff 06/13/21 09:01 Albuterol Sulfate 90 Mcg 8 Gm Inhaler INHALE RQ6H PRN Wheezing Albuterol Sulfate 2.5 mg 06/13/21 16:00 06/20/21 20:23 Albuterol Sulfate (0.083%) 2.5 Mg/3 Ml Vial.Neb INHALE 2.5 mg RQ4H WHILE AWAKE VICTORIANO Administration Dicyclomine HCl 20 mg 06/17/21 11:30 06/20/21 21:06 Dicyclomine Hcl 10 Mg Capsule PO 20 mg QIDACHS VICTORIANO Administration Docusate Sodium 100 mg 06/12/21 22:22 06/20/21 21:09 Docusate Sodium 100 Mg Capsule PO Not Given BID VICTORIANO Enoxaparin Sodium 40 mg 06/12/21 23:00 06/20/21 21:08 Enoxaparin Sodium 40 Mg/0.4 Ml Syringe SUBCUT Not Given Q24H VICTORIANO Hydrocortisone 1 appl 06/16/21 16:00 Hydrocortisone 1 % Ointment 28.35 Gm Tube TOPICAL BID PRN Perineal Discomfort Protocol Hydromorphone HCl 0.5 mg 06/14/21 12:15 06/21/21 04:18 Hydromorphone Hcl 1 Mg/Ml Syringe IVPUSH 0.5 mg Q3H PRN Administration Pain, Severe (Pain Scale 7-10) Protocol Magnesium Hydroxide 30 ml 06/12/21 22:22 06/15/21 01:48 Milk Of Magnesia 30 Ml Oral.Susp PO 30 ml DAILY PRN Administration Constipation Ondansetron HCl 4 mg 06/12/21 22:22 06/20/21 16:33 Ondansetron Hcl 4 Mg/2 Ml Vial IVPUSH 4 mg Q8H PRN Administration Nausea and Vomiting Ondansetron HCl 4 mg 06/17/21 09:00 Ondansetron Hcl 4 Mg/2 Ml Vial IVPUSH ONCE PRN Nausea and Vomiting Oxycodone HCl 5 mg 06/17/21 13:20 Oxycodone Hcl Immed Release 5 Mg Tablet PO Q4H PRN Pain, Moderate (Pain Scale 4-6 Oxycodone HCl 10 mg 06/17/21 13:20 06/18/21 10:15 Oxycodone Hcl Immed Release 5 Mg Tablet PO 10 mg Q4H PRN Administration Pain, Severe (Pain Scale 7-10) Polyethylene Glycol 17 gm 06/13/21 09:05 06/20/21 08:01 Polyethylene Glycol 3350 17 Gm Powd.Pack PO Not Given DAILY VICTORIANO Simethicone 80 mg 06/20/21 12:47 06/20/21 21:07 Simethicone 80 Mg Tab.Chew PO 80 mg QIDWMHS PRN Administration Gas Sodium Biphosphate/Sodium Phosphate 133 ml 06/15/21 08:02 Sodium Phosphate,[place]-Dibasic 133 Ml Enema [place] ONCE PRN Constipation Zolpidem Tartrate 5 mg 06/12/21 22:22 06/20/21 21:07 Zolpidem Tartrate 5 Mg Tablet PO 5 mg BEDTIME PRN Administration Insomnia Exam Exam Date and Time: June 21, 202121 Height,Weight and Vital Signs: Height 5 ft 10 in Weight 83.1 kg Last Vital Signs Temp 98.3 F 06/21/21 06:33 Pulse 67 06/21/21 06:33 Resp 20 06/21/21 06:33 BP 124/58 L 06/21/21 06:33 Pulse Ox 98 06/21/21 06:33 Pertinent Lab Results Pertinent Lab Results: Laboratory Tests 06/12/21 06/12/21 06/12/21 14:23 14:23 14:23 WBC 10.8 RBC 4.70 Hgb 13.5 Hct 38.6 MCV 82.1 MCH 28.7 MCHC 35.0 RDW 13.6 Plt Count 206 MPV 10.2 Immature Gran % (Auto) 0.4 Neut % (Auto) 67.7 Lymph % (Auto) 22.6 [place] % (Auto) 5.9 Eos % (Auto) 3.0 Baso % (Auto) 0.4 Lymph # (Auto) 2.4 [place] # (Auto) 0.6 Eos # (Auto) 0.3 Baso # (Auto) 0.0 Abs Immat Gran (auto) 0.04 H Absolute Neuts (auto) 7.3 Absolute Nucleated RBC 0.000 Nucleated RBC % (auto) 0.0 Sodium 138 Potassium 4.4 Chloride 106 Carbon Dioxide 23 Anion Gap 13 BUN 17 H Creatinine 0.90 Estim Creat Clear Calc 97.2 Estimated GFR > 60 Random Glucose 150 H Fasting Glucose Calcium 9.5 Magnesium Total Bilirubin 0.4 Direct Bilirubin < 0.2 AST 8 ALT 12 Alkaline Phosphatase 112 Troponin I High Sens Total Protein 6.9 Albumin 4.0 Lipase 58 Urine Color Urine Appearance Urine pH Ur Specific Colon Urine Protein Urine Glucose (UA) Urine Ketones Urine Blood Urine Nitrite Ur Leukocyte Esterase COVID-19 ([facility]) COVID-19 Clin Com 06/12/21 06/12/21 06/12/21 14:23 14:23 16:58 WBC RBC Hgb Hct MCV MCH MCHC RDW Plt Count MPV Immature Gran % (Auto) Neut % (Auto) Lymph % (Auto) [place] % (Auto) Eos % (Auto) Baso % (Auto) Lymph # (Auto) [place] # (Auto) Eos # (Auto) Baso # (Auto) Abs Immat Gran (auto) Absolute Neuts (auto) Absolute Nucleated RBC Nucleated RBC % (auto) Sodium Potassium Chloride Carbon Dioxide Anion Gap BUN Creatinine Estim Creat Clear Calc Estimated GFR Random Glucose Fasting Glucose Calcium Magnesium 2.0 Total Bilirubin Direct Bilirubin AST ALT Alkaline Phosphatase Troponin I High Sens < 3.5 Total Protein Albumin Lipase Urine Color YELLOW Urine Appearance CLEAR Urine pH 6.0 Ur Specific Colon <= 1.005 Urine Protein NEG Urine Glucose (UA) NEG Urine Ketones NEG Urine Blood NEG Urine Nitrite NEG Ur Leukocyte Esterase NEG COVID-19 ([facility]) COVID-19 Clin Com 06/12/21 06/13/21 06/13/21 20:10 05:49 05:49 WBC 8.4 RBC 4.47 Hgb 12.4 Hct 38.0 MCV 85.0 MCH 27.7 MCHC 32.6 RDW 13.9 Plt Count 185 MPV 10.6 Immature Gran % (Auto) 0.4 Neut % (Auto) 64.3 Lymph % (Auto) 25.1 [place] % (Auto) 6.3 Eos % (Auto) 3.5 Baso % (Auto) 0.4 Lymph # (Auto) 2.1 [place] # (Auto) 0.5 Eos # (Auto) 0.3 Baso # (Auto) 0.0 Abs Immat Gran (auto) 0.03 Absolute Neuts (auto) 5.4 Absolute Nucleated RBC 0.000 Nucleated RBC % (auto) 0.0 Sodium 141 Potassium 4.2 Chloride 107 Carbon Dioxide 26 Anion Gap 12 BUN 12 Creatinine 0.93 Estim Creat Clear Calc 94.1 Estimated GFR > 60 Random Glucose 146 H Fasting Glucose Calcium 8.9 D Magnesium Total Bilirubin Direct Bilirubin AST ALT Alkaline Phosphatase Troponin I High Sens Total Protein Albumin Lipase Urine Color Urine Appearance Urine pH Ur Specific Colon Urine Protein Urine Glucose (UA) Urine Ketones Urine Blood Urine Nitrite Ur Leukocyte Esterase COVID-19 ([facility]) Negative COVID-19 Clin Com See Note 06/20/21 06/20/21 04:51 04:51 WBC 8.4 RBC 3.97 L Hgb 11.0 L Hct 33.5 L MCV 84.4 MCH 27.7 MCHC 32.8 RDW 13.8 Plt Count 164 MPV 11.0 Immature Gran % (Auto) Neut % (Auto) Lymph % (Auto) [place] % (Auto) Eos % (Auto) Baso % (Auto) Lymph # (Auto) [place] # (Auto) Eos # (Auto) Baso # (Auto) Abs Immat Gran (auto) Absolute Neuts (auto) Absolute Nucleated RBC 0.000 Nucleated RBC % (auto) 0.0 Sodium 139 Potassium 4.2 Chloride 108 Carbon Dioxide 25 Anion Gap 10 L BUN 10 Creatinine 0.90 Estim Creat Clear Calc 81.9 Estimated GFR > 60 Random Glucose Fasting Glucose 166 H Calcium 9.0 Magnesium Total Bilirubin Direct Bilirubin AST ALT Alkaline Phosphatase Troponin I High Sens Total Protein Albumin Lipase Urine Color Urine Appearance Urine pH Ur Specific Colon Urine Protein Urine Glucose (UA) Urine Ketones Urine Blood Urine Nitrite Ur Leukocyte Esterase COVID-19 ([facility]) COVID-19 Clin Com Airway Mallampati Class: II TM Dist: >3cm Neck ROM: Full Loose/Missing/Broken Teeth: Yes and Lower Heart: RRR Lungs: Distant but equal bilat Assessment and Plan Assessment Anesthesia Assessment: Anesthesia Plan Discussed and Chart Reviewed Final Anesthetic Review Family History of Problems with Anesthesia: No History of Problems with Anesthesia: No NPO: Yes ASA Class: III Final Preanesthetic Review: Meds/Allgs Chart Reviewed, Consent Obtained/Reviewed and Anes Risks/Benef Reviewed Patient Risk: Intermediate Procedure Risk: Intermediate Anesthetic Plan Anesthetic Plan: GA Disposition: Standard PACU
--- NOTE | 2021-06-21 07:30 | P.HPSUR_ITS ---
Pre-Procedural Eval Section A Date of Service: 06/21/21 The patient is an INPATIENT: Yes Changes since office visit: Yes Patient answered all questions; No Cold of Flu in the past 2 weeks, No New Medical Problems and No Changes in Medication The History & Physical has been completed within 30 days and I have reviewed it.: Yes Section B Chief Complaint: acute cholecystitis Medical History: Significant History (copd) History of Previous Operations: No relevant previous surgery Allergies: Allergies Allergy/AdvReac Type Severity Reaction Status Date / Time codeine [CODEINE] AdvReac Severe TYL #3 - Verified 06/21/21 06:32 HEADACHE Review of Systems Sugical H&P ROS: Negative: Constitution, Cardiovascular, Neurological, Psychiatric, Hem-Onc, Allergic/Immunologic, Genitourinary, Musculoskeletal, Integumentary, Endocrine and Eyes/Ears/Nose/Throat and Yes, Specify: Respiratory (SOB) and Gastrointestinal (abdominal pain) Exam Surgical H&P Exam: Normal: HEENT, Normal: Heart, Normal: Lungs, Normal: Extrem ities, Normal: Skin and Normal: Neurological and Significant Findings: Abdomen (tender RUQ) Plan Diagnosis/Plan: Unchanged I have reviewed the history and physical and performed a pertinent physical examination on my patient. No changes have occurred unless specified. I review the procedure, risks and alternatives and she consents to a l aparoscopic or possible open cholecystectomy
[2021-06-21 08:26] LABS: Estimated Average Glucose 160 mg/dL; Hemoglobin A1c % 7.2 %
--- NOTE | 2021-06-21 09:22 | P.OP_ITS ---
Operative Note Operative Note Date of Service: 06/21/21 Narrative: Preoperative diagnosis: Acute cholecystitis, cholelithiasis Postoperative diagnosis: Same Procedure: Laparoscopic cholecystectomy Surgeon: Elian Holloway MD Vp Information Technology: NILO Escobedo Anesthesia: General endotracheal Indications for procedure: 56-year-old female patient presenting with persistent pain in the right upper quadrant found to have a large gallstone in the gallbladder. She also complained of constipation and underwent a colonoscopy which revealed only minor colitis. She presents today for laparoscopic cholecystectomy. Operative findings: Chronically inflamed gallbladder with a large gallstone within the gallbladder. No gallbladder wall thickening identified. Specimen: Gallbladder Estimated blood loss: 10 mL Complications: This non Procedure details: Patient was brought to the OR and placed in a supine position. After administering general anesthesia the patient's abdomen was prepped with ChloraPrep and draped in a sterile fashion. Local anesthesia consisting of 0.5% Sensorcaine with epinephrine was infiltrated in a periumbilical region. A 5 mm incision was made above the umbilicus in a transverse fashion. The Veress needle was then inserted while elevating abdominal cavity with towel clips. After positive drop test the abdomen was insufflated to a pressure of 15 mm of mercury. The Veress needle was then removed and a 5 mm trocar inserted. The camera was inserted in the abdomen explored. A 12 mm trocar was then placed in the epigastrium and 2 5 mm trocars placed in the right upper quadrant. The patient was placed in reverse Trendelenburg positioning and rotated to the left. The gallbladder was grasped with the fundus and retracted cephalad.. The infundibulum Was then grasped and retracted away from the liver bed. The Dolphin dissected was then used to dissect the peritoneum off the infundibulum to reveal the junction with the cystic duct. Cystic artery was noted slightly medial and posterior to the cystic duct. After obtaining a critical view the cystic duct was doubly clipped and divided. The cystic artery was then doubly clipped and divided. The gallbladder was then dissected off the liver bed using electrocautery with an L hook. Hemostasis was assured all times using the electrocautery. When the gallbladder is completely dissected off the liver bed was placed in an Endo- Catch bag and brought out through the epigastric incision. The gallbladder was sent to pathology for further examination. The abdomen was then re-examined. The liver bed was irrigated and suctioned dry. No bleeding or bile leak could be identified. CO2 was then evacuated and all trocars removed. Fascia was closed at the epigastric incision using a [id number] 0 Polysorb suture. Skin was closed in all incisions using a subcuticular 4 0 Polysorb suture. Sterile dressings consisting of Steri-Strips, 2 x 2 gauze, and Tegaderm were then applied. The patient tolerated the procedure well. Sponge instrument and needle counts reported as correct. The patient was transferred to PACU in stable condition.
[2021-06-21] MEDS: ondansetron HCL 4 MG/2 ML VIAL IVPUSH (09:40)
[2021-06-21] MEDS: HYDROmorphone HCl 0.5 MG/0.5 ML SYRINGE IVPUSH ×3 (09:40→10:00)
--- NOTE | 2021-06-21 09:50 | MHC.SHP ---
Pre-Procedural Eval Section A Date of Service: 06/21/21 The patient is an INPATIENT: No Changes since office visit: Yes Patient answered all questions; No Cold of Flu in the past 2 weeks, No New Medical Problems and No Changes in Medication The History & Physical has been completed within 30 days and I have reviewed it.: Yes Section B Chief Complaint: acute cholecystitis Allergies: Allergies Allergy/AdvReac Type Severity Reaction Status Date / Time codeine [CODEINE] AdvReac Severe TYL #3 - Verified 06/21/21 06:32 HEADACHE Plan Diagnosis/Plan: Unchanged I have reviewed the history and physical and performed a pertinent physical examination on my patient. No changes have occurred unless specified.
[2021-06-21] MEDS: Dicyclomine HCl 10 MG CAPSULE 20 MG PO ×3 (12:36→20:40)
[2021-06-21] MEDS: Simethicone 80 MG TAB.CHEW PO ×3 (12:36→21:07)
[2021-06-21] MEDS: Albuterol Sulfate (0.083%) 2.5 MG/3 ML VIAL.NEB INHALE ×2 (13:08→16:36)
--- NOTE | 2021-06-21 16:52 | MHC.CM.PN ---
EMR REVIEWED, PT TO OR FOR NATHALY ANDINO TODAY, NO PLAN FOR D/C TODAY, ANTICIPATE D/C Monday06/22/21
[2021-06-21] MEDS: Zolpidem Tartrate 5 MG TABLET PO (21:07)
[2021-06-22] MEDS: HYDROmorphone HCl 1 MG/ML SYRINGE 0.5 MG IVPUSH ×2 (01:51→06:37)
--- NOTE | 2021-06-22 07:34 | P.PNGS_ITS ---
Subjective Subjective Date of Service: 06/22/21 Interval history: Patient feels much improved, tolerated her diet last night. Still taking IV dilaudid. She is able to ambulate independently. Physical Exam Vital Signs: Vital Signs: Last Vital Signs Temp 97 F 06/21/21 19:26 Pulse 85 06/21/21 19:26 Resp 18 06/21/21 19:26 BP 151/80 H 06/21/21 19:26 Pulse Ox 94 06/21/21 19:26 Body Mass Index 26.2 Resp: Effort & Inspection: normal respiratory effort and no respiratory distress GI: Other: incisions clean, dry and intact without redness or discharge. Inspection: Yes obesity Percussion: Yes normal to percussion Skin: Other: warm, dry, no rash Extrem: Other: no edema Procedures Date of Service Date of Service: 06/22/21 Progress Note: A&P Assessment and plan (1) Biliary colic: Status: Acute (2) COPD (chronic obstructive pulmonary disease): Status: Acute Assessment and Plan: Patient is now much improved with improved abdominal pain. She will be switched to po dilaudid and discharged to home today. SHe should avoid lifting > 10 pounds for 2 weeks and remain on a low fat diet. She will need to follow up in the office in 1-2 weeks. Fall Risk Details Current Medications: Current Medications Generic Name Dose Route Start Last Admin Trade Name Freq PRN Reason Stop Dose Admin Albuterol Sulfate 2 puff 06/13/21 09:01 Albuterol Sulfate 90 Mcg 8 Gm Inhaler INHALE RQ6H PRN Wheezing Albuterol Sulfate 2.5 mg 06/13/21 16:00 06/21/21 19:25 Albuterol Sulfate (0.083%) 2.5 Mg/3 Ml Vial.Neb INHALE Not Given RQ4H WHILE AWAKE VICTORIANO Dicyclomine HCl 20 mg 06/17/21 11:30 06/21/21 20:40 Dicyclomine Hcl 10 Mg Capsule PO 20 mg QIDACHS VICTORIANO Administration Hydrocortisone 1 appl 06/16/21 16:00 Hydrocortisone 1 % Ointment 28.35 Gm Tube TOPICAL BID PRN Perineal Discomfort Protocol Hydromorphone HCl 0.5 mg 06/14/21 12:15 06/22/21 06:37 Hydromorphone Hcl 1 Mg/Ml Syringe IVPUSH 0.5 mg Q3H PRN Administration Pain, Severe (Pain Scale 7-10) Protocol Magnesium Hydroxide 30 ml 06/12/21 22:22 06/15/21 01:48 Milk Of Magnesia 30 Ml Oral.Susp PO 30 ml DAILY PRN Administration Constipation Ondansetron HCl 4 mg 06/12/21 22:22 06/20/21 16:33 Ondansetron Hcl 4 Mg/2 Ml Vial IVPUSH 4 mg Q8H PRN Administration Nausea and Vomiting Oxycodone HCl 5 mg 06/17/21 13:20 Oxycodone Hcl Immed Release 5 Mg Tablet PO Q4H PRN Pain, Moderate (Pain Scale 4-6 Oxycodone HCl 10 mg 06/17/21 13:20 06/18/21 10:15 Oxycodone Hcl Immed Release 5 Mg Tablet PO 10 mg Q4H PRN Administration Pain, Severe (Pain Scale 7-10) Simethicone 80 mg 06/20/21 12:47 06/21/21 21:07 Simethicone 80 Mg Tab.Chew PO 80 mg QIDWMHS PRN Administration Gas Zolpidem Tartrate 5 mg 06/12/21 22:22 06/21/21 21:07 Zolpidem Tartrate 5 Mg Tablet PO 5 mg BEDTIME PRN Administration Insomnia Time Spent With Patient Time: Total time spent is greater than 50% in coordination of care (as d ocumented) at patient's floor/unit and/or counseling patient: Time with patient: 15 - 24 minutes Quality Stroke Does the patient have a stroke diagnosis?: No VTE Prior VTE?: No VTE Risk Level:: Surgical - high VTE Device Contraindication: N/A - Device Ordered VTE Drug Contraindication: N/A - Med Ordered
[2021-06-22] MEDS: Dicyclomine HCl 10 MG CAPSULE 20 MG PO (07:36)
[2021-06-22 07:40] VITALS: BP 130/71; PULSE 68; RESP 17; TEMP 36.1; O2SAT 99
--- NOTE | 2021-06-22 07:52 | MHC.CM.PN ---
PT DISCHARGING HOME SELF-CARE W/FOLLOW-UP IN SURGEONS OFFICE, PT'S TO TRANSPORT.
[2021-06-22] MEDS: Albuterol Sulfate (0.083%) 2.5 MG/3 ML VIAL.NEB INHALE (08:19)
[2021-06-22 08:21] VITALS: PULSE 68; O2SAT 99
--- NOTE | 2021-06-23 11:04 | PM.DS ---
DS: Providers Provider Date of Service: 06/22/21 Date of admission: 06/12/21 20:14 Date of discharge: 06/22/21 Primary care physician: Valerio Physician Admitting clinician: Elian Holloway Attending physician on admission: Elian Holloway Consults: 06/13/21 09:01 Consult to Hospitalist Routine Consulting Provider: Hospitalist Reason For Exam: Abdominal pain, COPD, obesity, possible cholecysti 06/16/21 08:55 Consult to Gastroenterology Routine Consulting Provider: Faizan Vigil Reason for consultation: abdominal pain, constipation, due for colonoscopy Discharging clinician: Elian Holloway DS: Diagnosis Discharge Diagnosis (1) Cholecystitis, acute with cholelithiasis: Status: Acute (2) COPD (chronic obstructive pulmonary disease): Status: Acute DS: Summary Hospital Course Hospital Course: Marj Rivera is a 56 year old female presenting with complaints of abdominal pain mainly in the right upper quadrant radiating to the right back for approximately 2 weeks.? The pain is described as constant and non colicky.? She reports decreased appetite as well as persisting constipation despite taking multiple agents for her bowels.? She denies nausea, vomiting, fever, chills.? Presented to the emergency department and was found to be tender in the right upper quadrant.? CT of the abdomen and pelvis revealed a large gallstone within the gallbladder but no evidence of wall thickening or pericholecystic fluid.? Her last colonoscopy was greater than 10 years ago apparently was performed at [facility].? She denies previous abdominal surgeries. She was admitted to the surgical service for further management of the abdominal pain. Patient was noted to be short of breath with persisting coughing therefore hospitalist consultation was obtained for management of her COPD. She also underwent further evaluation of the gallbladder with an ultrasound the abdomen as well as a HIDA scan. The ultrasound revealed gallstones within the gallbladder with wall thickening. HIDA scan however revealed prompt filling of the gallbladder without evidence of common or cystic duct obstruction. Because of the persisting constipation, gastroenterology consultation was obtained Dr. Vigil. Colonoscopy was performed which revealed mild colitis in the cecum and several small polyps but no evidence of bowel obstruction. She tolerated this procedure well. Because of the persistent abdominal pain, decision was made to proceed to a laparoscopic or possible open cholecystectomy. This was performed on 06/21/2021. Operative findings were consistent with acute and chronic cholecystitis with a large gallstone within the gallbladder. She underwent a laparoscopic cholecystectomy and tolerated this procedure well. Postoperatively she was started on a low-fat diet and tolerated this well without nausea or vomiting. She reported that her abdominal pain was improved. Patient is subsequently discharged home on 06/22/2021. She was instructed to avoid lifting greater than 10 lb for the next 2 weeks. She should also avoid fatty/fried foods for the next month. She will follow up in the office in approximately 1-2 weeks for wound examination. She should call for fever, chills, nausea, or vomiting. Status at Discharge Functional status at discharge: independent ambulation Time Spent with Patient Time attestation: Total time spent providing and/or coordinating discharge services: Discharge coordination time: Less than 30 minutes Quality: Stroke Does the patient have a stroke diagnosis?: No Physical Exam Vital Signs: Vital Signs: Last Vital Signs Temp 97.0 F 06/22/21 07:40 Pulse 68 06/22/21 08:21 Resp 17 06/22/21 07:40 BP 130/71 06/22/21 07:40 Pulse Ox 99 06/22/21 07:40 Body Mass Index 26.2 Const: General: cooperative, no acute distress and well developed Nutritional Appearance: well nourished and obese Orientation/consciousness: patient oriented x3 Limitations: no limitations HENMT: Head: Yes normocephalic and Yes atraumatic Resp: Effort & Inspection: normal respiratory effort, no cough and no stridor GI: Inspection: Yes normal to inspection and Yes incision (Trocar incisions are clean, dry, and intact) Palpation (GI): Soft to palpation, nontender, no guarding, not rigid and hepatosplenomegaly present Auscultation: normal bowel sounds Skin: General skin exam: no rashes or lesions noted Neuro: General: patient oriented x3 Extrem: General: Yes normal to inspection and Yes no clubbing, cyanosis or edema DS: Data Data Completed and Pending Completed studies during hospitalization [Text1]: Pending at discharge 06/17/21 10:22 Surgical [PTH] Routine 06/21/21 08:53 Surgical [PTH] Routine Discharge Plan Discharge Patient Disposition: Home, Self-Care Discharge Diagnosis: colitis Referrals: Elian Holloway MD [Physician] - 1 Week Physician,None [Primary Care Provider] - 1 Week Discharge Medications: New hydromorphone [Dilaudid] 2 mg tablet 2 mg PO Q6H PRN (Reason: pain) Qty: 20 RF: 0 Discharge Orders: Discharge Order (Routine); Ordered 06/22/21 Ordered By: Elian Holloway Diet: low fat, low cholesterol and other Activity on Discharge: No heavy lifting Stand Alone Forms: Patient Portal Discharge page Activity Restrictions/Additional Instructions: No lifting > 10 pounds for 2 weeks No driving for one week Ice to the incision x 24 hours Remove dressing in 3 days Low fat diet recommended for one month Follow up in office in one week. Care Plan Goals: Resolution of abdominal pain Health Concerns: COPD, gallstones, constipation, colitis Plan of Treatment: laparoscopic cholecystectomy Assessment: Biliary colic, cholelithiasis Patient Instructions: Low Fat Diet (DC), Laparoscopic Cholecystectomy (DC) Discharge Date/Time: 06/22/21 09:30
== END 2021-06-22 09:30 | disposition home or self-care (01) | DRG 263 ==
LOC: HO.ED 15:20 → HO.EDOVER 20:21 → HO.IMC 21:15 → HO.S3 06-18 22:17
PROVIDERS: Internal Medicine Gastroenterology; Physician Assistant; Surgery; Admitting Provider Surgery; Emergency Provider Emergency Medicine; Visit Provider Surgery
PROC: 0DJD8ZZ Inspection of Lower Intestinal Tract, Via Natural or Artificial Opening Endoscopic (ICD-10-PCS; CPT 45378; principal; 2021-06-17 10:00)
PROC: 0FT44ZZ Resection of Gallbladder, Percutaneous Endoscopic Approach (ICD-10-PCS; CPT 47562; principal; 2021-06-21 07:30)
DX: K80.00 Calculus of gallbladder with acute cholecystitis without obstruction (principal); J44.1 Chronic obstructive pulmonary disease with (acute) exacerbation; F17.210 Nicotine dependence, cigarettes, uncomplicated; Z20.822 Contact with and (suspected) exposure to COVID-19; Z71.6 Tobacco abuse counseling; Z88.5 Allergy status to narcotic agent; E66.9 Obesity, unspecified; Z68.37 Body mass index [BMI] 37.0-37.9, adult
CPT/HCPCS: 36415; 74177; 76705; 78226; 80048; 80076; 81003; 83036; 83690; 83735; 84484; 85025; 85027; 87635; 88304; 88305; 94640; 96361; 96374; 96375; 96376; 99024; 99285; 99291; A9537; J0131; J1100; J1170; J1650; J1885; J2250; J2270; J2405; J2543; J2550; J2930; J3010; Q9967

== ENCOUNTER → 2021-06-29 11:30 | Outpatient (BNVA) | payer OTHER, SELFPAY | PROVIDERS: Referring Provider Family Medicine; Visit Provider Surgery | DX: Z48.815 Encounter for surgical aftercare following surgery on the digestive system (principal); Z87.19 Personal history of other diseases of the digestive system; Z72.0 Tobacco use | CPT/HCPCS: 99212 ==

== ENCOUNTER 2023-08-20 21:08 | Inpatient (IN) | payer BC, OTHER, SELFPAY ==
--- NOTE | ~2023-08-20 | CT_ITS ---
EXAMINATION: CT FACIAL BONES WITHOUT CONTRAST CLINICAL INFORMATION: Right facial swelling. COMPARISON: None available. TECHNIQUE: Contiguous axial noncontrast CT scan images of the facial bones obtained without intravenous contrast. Sagittal and coronal reformatted images also obtained. This CT examination was performed using dose optimization techniques as appropriate, variously including the following: *Automated exposure control *Adjustment of mA and/or kV according to patient size (this includes techniques or standardized protocols for targeted exams where dose is matched to indication/reason for exam; i.e. extremities or head) *Use of iterative reconstruction technique DLP: 428 mGy-cm FINDINGS: There is ethmoid and right maxillary sinus mucosal thickening. The remaining maxillofacial sinuses are clear. There is no acute fracture. The intraorbital structures are unremarkable. There is right periorbital, right cheek and perinasal soft tissue swelling. There is both maxillary and mandibular dental disease with periapical lucencies, missing teeth as well as caries. No fluid collection is identified. CT/CT facial bones wo IV con IMPRESSION: No acute osseous abnormality. Right periorbital cheek and right paranasal soft tissue swelling. Dental disease. No fluid collection.
--- NOTE | ~2023-08-20 | CT_ITS ---
EXAMINATION: CT FACIAL BONES WITH CONTRAST CLINICAL INFORMATION: Facial cellulitis, rule out orbital cellulitis COMPARISON: Maxilla facial CT 08/20/2023 TECHNIQUE: Helical just enhanced CT imaging was acquired through the facial bones and source images were reviewed along with axial reconstructions and sagittal and coronal MPRs. 85 mL of Omnipaque 350 were administered intravenously without immediate complication. This CT examination was performed using dose optimization techniques as appropriate, variously including the following: *Automated exposure control *Adjustment of mA and/or kV according to patient size (this includes techniques or standardized protocols for targeted exams where dose is matched to indication/reason for exam; i.e. extremities or head) *Use of iterative reconstruction technique DLP: 403.0 mGy-cm mGy-cm FINDINGS: Rim-enhancing fluid collection measuring up to 1.3 x 0.3 cm in the axial plane along the anterior right maxilla. This is associated with a right maxillary cuspid periapical lucency with focal dehiscence of the overlying outer cortex. There is associated asymmetric soft tissue swelling along the right nasal labial fold and right aspect of the nose extending superiorly to the right periorbital region. Additional asymmetric right facial soft tissue swelling involving the right premaxillary/prezygomatic soft tissues and extending inferiorly along the right neck with thickening of the right platysma. This extends outside the [id number] of this examination involves the right submandibular space and bilateral level 1 neck. Enlarged multistation cervical and right parotid lymph nodes are likely reactive. No definite post septal involvement on the right. The right globe is intact. The extraocular muscles are symmetric in size. No asymmetric retrobulbar soft tissue swelling. Again seen is dense calcification along the right aspect of the sella turcica. Moderate mucosal thickening in the right maxillary sinus with additional scattered polypoid mucosal thickening in the paranasal sinuses. The mastoid air cells are well-aerated. Limited intracranial evaluation is within normal limits. Odontogenic disease with numerous periapical lucencies and dental caries. 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 CT/CT facial bones w IV con IMPRESSION: Right maxillary cuspid periapical lucency with associated dehiscence of the overlying outer cortex and abscess formation. Abscess measures up to 1.3 x 0.3 cm in the axial plane. Correlation with odontogenic examination is recommended. There is extensive asymmetric right-sided facial soft tissue stranding. This extends into the right periorbital soft tissues without definite post septal or retrobulbar involvement. Coarse calcification along the right aspect of the sella turcica is indeterminate. Extensive odontogenic disease with dental caries and periapical lucencies.
[2023-08-20 21:18] VITALS: BP 136/64; PULSE 101; RESP 20; TEMP 37.6; O2SAT 98; BMI 37.3
--- NOTE | 2023-08-20 22:21 | ED_ITS ---
HPI - Dental/Oral General Chief complaint: Dental/Oral Stated complaint: facial swelling Time Seen by Provider: 08/20/23 22:14 Source: patient and family Mode of arrival: ambulatory Limitations: no limitations History of Present Illness HPI Narrative: a 58-year-old female came in for evaluation of right-sided facial swelling x1 day. Patient with history of multiple dental infection and abscesses patient currently is taking a one-week course of amoxicillin without relief of her symptoms. No voice change, no throat swelling, no difficulty breathing. Related Data Previous Rx's Medication Instructions Recorded hydromorphone 2 mg tablet 2 mg PO Q6H PRN pain #20 tabs 06/22/21 (Dilaudid) Allergies Allergy/AdvReac Type Severity Reaction Status Date / Time codeine [CODEINE] AdvReac Severe TYL #3 - Verified 06/21/21 06:32 HEADACHE Review of Systems 2 Review of Systems: All other systems are reviewed and are negative Constitutional: Reports as per HPI and Reports no additional constitutional complaints Eyes: Reports as per HPI and Reports no additional eye complaints Reports system reviewed and no additional complaints, except as documented Cardiovascular: Reports as per HPI and Reports no additional cardiovascular complaints Respiratory: Reports as per HPI and Reports no additional respiratory complaints Gastrointestinal: Reports as per HPI and Reports no additional gastrointestinal complaints Genitourinary: Reports no additional female genitourinary complaints Musculoskeletal: Reports no additional musculoskeletal complaints Skin/Breast: Reports system reviewed and no additional complaints, except as docu Psychiatric: Reports no additional psychiatric complaints Endocrine: Reports no additional endocrine complaints Hematologic/Lymphatic: Reports no additional hematologic/lymphatic complaints Allergic/Immunologic: Reports no additional allergic/immunologic complaints Reports system reviewed and no additional complaints, except as documented and Reports Abnormal speech present [facility] Past Medical History Medical History COPD (chronic obstructive pulmonary disease) Obesity Tobacco use No known health problems Surgical History S/P laparoscopic cholecystectomy Hx of section Social History Social History Household Members: Family Housing: House Do you presently have visiting nurse or other home services: No Alcohol intake: never Patient Tobacco Use Status: Current everyday Tobacco user Tobacco use type: Cigarette Cigarettes Per Day: 10 Substance Use Type: Marijuana Advance Directives: Yes Advance Directives on File: Yes Advance Directives Date on File: 06/12/21 service: No Current occupational status: unemployed Physical Exam 2 Vital Signs: Vital Signs: Last Vital Signs Temp 99.6 F 08/20/23 21:18 Pulse 101 H 08/20/23 21:18 Resp 20 08/20/23 21:18 BP 136/64 08/20/23 21:18 Pulse Ox 98 08/20/23 21:18 O2 Del Method Room Air 08/20/23 21:18 BMI result Body Mass Index 37.3 Vital signs have been reviewed and appear to be correct. Blood pressure elevated. Heart rate normal. Respiratory rate normal. Temperature normal. Oxygen saturation normal. Appearance: Alert. Oriented X3. No acute distress. Head: Right facial swelling. Eyes: PERRLA. EOMI. Conjunctiva and sclera normal. Eyelids normal. ENT: TM's Normal. Pharynx normal. patent airway, no stridor. Uvula midline. Moist mucous membranes. No trismus noted. No drooling noted. No muffled voice noted. Neck: Normal inspection. Neck supple. FROM. No adenopathy. Thyroid Normal. No meningeal signs. No neck mass noted. CVS: Normal heart rate and rhythm. Heart sound normal. No murmurs noted. Pulses normal throughout. Respiratory: No respiratory distress. Painless inspiration. Breath sounds normal. No wheezes/rales/rhonchi noted. Chest nontender. No accessory muscle usage noted or decreased air movement noted. Abdomen: Soft and nontender. Bowel sounds normal in all 4 quadrants. No distention noted. No organomegaly noted. No visible injury noted. Back: No CVA tenderness. Full range of motion noted. Skin: Skin warm and dry. Normal skin color. Normal skin turgor. No rashes/lesions/lacerations noted. Extremities: No lower extremity edema. Extremities exhibit normal range of motion. Extremities nontender. Neuro: Oriented X 3. Cranial nerve exam: II-XII are grossly intact No motor deficit. No sensory deficit. Reflexes normal. Course Reevaluation(s) Reevaluation #1: 58-year-old female with widespread dental decay came in with right-sided facial cellulitis that did not respond to oral amoxicillin course given by the dentist four-week, patient meet criteria for SIRS but no severe sepsis or septic shock will start the patient on Zosyn and admit to continue with IV antibiotic. Time: 23:06 Medications Administered Discontinued Medications Generic Name Dose Route Start Last Admin Trade Name Mark PRN Reason Stop Dose Admin Sodium Chloride 1,000 mls @ 999 mls/hr 08/20/23 22:20 08/21/23 00:39 Ns IV 08/20/23 23:20 Infused .Q1H1M ONE Infusion Piperacillin Sod/Tazobactam 50 mls @ 100 mls/hr 08/20/23 22:20 08/21/23 00:40 Sod 3.375 gm/ Sodium Chloride IV 08/20/23 22:49 Infused ONCE ONE Infusion Medical Decision Making Differential Diagnosis Differential Diagnoses: The differential diagnosis associated with the presentation includes ( dental infection, dental abscess, sepsis, severe anemia, electrolyte abnormality.) Admission/Observation Consideration of admission/observation: Escalation of care including admission/observation considered Consult Healthcare Provider Management of the patient was discussed with: Hospitalist ( Dr. Garsia) Lab Data MDM Lab Attestation statement: I reviewed the patient's lab results. 08/20/23 22:48 08/20/23 22:45 Labs: Lab Results 08/20/23 08/20/23 08/20/23 Range/Units 22:41 22:45 22:48 WBC 12.9 H (4.8-10.8) X10*3/uL RBC 4.83 (4.20-5.50) X10*6/uL Hgb 13.1 (12.0-16.0) g/dl Hct 38.8 (37.0-47.0) % MCV 80.3 (80.0-98.0) fL MCH 27.1 (27.0-33.0) pg MCHC 33.8 (31.0-35.0) g/dl RDW 14.1 (11.0-16.0) % Plt Count 196 (160-400) X10*3/uL MPV 10.1 (9.4-12.3) fL Immature Gran % (Auto) 0.4 (0.0-0.4) % Neut % (Auto) 82.3 H (45-73) % Lymph % (Auto) 10.0 L (20-40) % [place] % (Auto) 4.9 (2-11) % Eos % (Auto) 2.0 (0-4) % Baso % (Auto) 0.4 (0-2) % Lymph # (Auto) 1.3 (1.2-4.9) X10*3/uL [place] # (Auto) 0.6 (0.1-1.2) X10*3/uL Eos # (Auto) 0.3 (0.0-0.4) X10*3/uL Baso # (Auto) 0.1 (0.0-0.2) X10*3/uL Abs Immat Gran (auto) 0.05 H (0.00-0.03) X10*3/uL Absolute Neuts (auto) 10.7 H (2.0-8.3) x10*3/uL Absolute Nucleated RBC 0.000 (0.0-0.012) X10*3/uL Nucleated RBC % (auto) 0.0 (0.0-0.2) /100WBC Sodium 137 (135-145) mmol/L Potassium 4.0 (3.3-5.1) mmol/L Chloride 104 (96-108) mmol/L Carbon Dioxide 25 (22-29) mmol/L Anion Gap 12 (12-20) BUN 21 H (9-16) mg/dL Creatinine 0.79 (0.5-1.4) mg/dL Estim Creat Clear Calc 108.1 Estimated GFR > 60 Random Glucose 289 H (60-115) mg/dL Lactic Acid 1.4 (0.5-2.0) mmol/L Calcium 9.3 (8.4-10.2) mg/dL Lipase 33 (8-78) U/L Independent Interpretation I performed an independent interpretation of an: CT Scan ( facial:No acute osseous abnormality. Right periorbital cheek and right paranasal soft tissue swelling. Dental disease. No fluid collection. ) Radiology Impression Discussion of test interpretation with radiology: I have reviewed the radiologist's reading. Chronic Conditions Patient?s care impacted by: Other ( widespread dental disease) Discharge Plan Discharge Clinical Impression: Cellulitis of face Patient Disposition: Admitted As Inpatient
[2023-08-20] MEDS: 0.9 % Sodium Chloride 1,000 ML 999 ML IV (22:46)
[2023-08-20 22:50] LABS: MANUAL DIFF FLAG NO
[2023-08-20 22:51] LABS: Basophils Absolute Auto 0.1 X10*3/uL (0.0-0.2); Basophils Percent Auto 0.4 % (0-2); Eosinophils Absolute Auto 0.3 X10*3/uL (0.0-0.4); Hematocrit 38.8 % (37.0-47.0); Hemoglobin 13.1 g/dl (12.0-16.0); Imm Gran Abs Auto 0.05 X10*3/uL (0.00-0.03); Imm Gran Pct Auto 0.4 % (0.0-0.4); Lymphocytes Absolute Auto 1.3 X10*3/uL (1.2-4.9); Mean Corpuscular HGB Conc 33.8 g/dl (31.0-35.0); Mean Corpuscular Hemoglobin 27.1 pg (27.0-33.0); Mean Corpuscular Volume 80.3 fL (80.0-98.0); Mean Platelet Volume 10.1 fL (9.4-12.3); Monocytes Absolute Auto 0.6 X10*3/uL (0.1-1.2); Monocytes Percent Auto 4.9 % (2-11); Neutrophils Absolute Auto 10.7 x10*3/uL (2.0-8.3); Neutrophils Percent Auto 82.3 % (45-73); Platelet Count 196 X10*3/uL (160-400); Red Blood Count 4.83 X10*6/uL (4.20-5.50); Red Cell Distribution Width 14.1 % (11.0-16.0); White Blood Count 12.9 X10*3/uL (4.8-10.8)
[2023-08-20] MEDS: Piperacillin Sodium/Tazobactam 3.375 GM in 0.9 % Sodium Chloride 50 ML IV (22:57)
[2023-08-20 22:59] LABS: Lactic Acid 1.4 mmol/L (0.5-2.0)
[2023-08-20 23:02] LABS: Anion Gap 12 (12-20); Blood Urea Nitrogen 21 mg/dL (9-16); Calcium 9.3 mg/dL (8.4-10.2); Carbon Dioxide 25 mmol/L (22-29); Chloride 104 mmol/L (96-108); Creatinine Clr Calc Pharmacy 108.1; Estimated Glomerular Filt Rate > 60; Glucose Random 289 mg/dL (60-115); Lipase 33 U/L (8-78); Sodium 137 mmol/L (135-145)
--- NOTE | 2023-08-21 01:42 | P.HPHOSP_ITS ---
History of Present Illness Date of Service: 08/21/23 Chief Complaint: Facial swelling This is a 58-year-old female with no past medical history and not on prescription medications who presents to the emergency department for evaluation of right-sided facial swelling. Patient states it started 1 day prior to presentation. Patient states she has a history of dental infection and was taking amoxicillin. Patient states she completed the course of p.o. amoxicillin but the infection spread from her teeth to the right side of the face. No fevers or chills. Does have a history of dental abscesses. No chest discomfort, palpitations, shortness of breath, abdominal pain, changes in urinary or bowel habits. In the emergency department, patient was found to be septic. No fluid collection on CT of the face Review of Systems 2 Constitutional: Constitutional: Reports no additional constitutional complaints Cardiovascular: Cardiovascular: Reports no additional cardiovascular complaints Respiratory: Respiratory: Reports no additional respiratory complaints Gastrointestinal: Gastrointestinal: Reports no additional gastrointestinal complaints Genitourinary: Genitourinary: Reports no additional female genitourinary complaints [facility] Medical History COPD (chronic obstructive pulmonary disease) Obesity Tobacco use No known health problems Pertinent family history: No family history of early CAD Surgical History S/P laparoscopic cholecystectomy Hx of section Social History Household Members: Family Housing: House Do you presently have visiting nurse or other home services: No Alcohol intake: never Patient Tobacco Use Status: Current everyday Tobacco user Tobacco use type: Cigarette Cigarettes Per Day: 10 Substance Use Type: Marijuana Advance Directives: Yes Advance Directives on File: Yes Advance Directives Date on File: 06/12/21 service: No Current occupational status: unemployed Meds Allergies Allergy/AdvReac Type Severity Reaction Status Date / Time codeine [CODEINE] AdvReac Severe TYL #3 - Verified 06/21/21 06:32 HEADACHE Physical Exam 2 Vital Signs and Narrative: Vital Signs: Last Vital Signs Temp 99.6 F 08/20/23 21:18 Pulse 101 H 08/20/23 21:18 Resp 20 08/20/23 21:18 BP 136/64 08/20/23 21:18 Pulse Ox 98 08/20/23 21:18 O2 Del Method Room Air 08/20/23 21:18 BMI result Body Mass Index 37.3 Middle-aged female lying in bed in no distress HEENT: Right-sided facial swelling with erythema and tenderness Neck supple, no JVD Regular rate and rhythm, S1-S2 heard Regular breath sounds bilaterally, no wheezing or crackles appreciated Abdomen soft nontender, no guarding, no rigidity Patient is awake, alert and oriented to self, place, time and person ; no focal motor deficit Psych: Normal mood No pedal edema Results Labs 08/20/23 22:48 08/20/23 22:45 Labs: Laboratory Results - last 24 hr 08/20/23 08/20/23 08/20/23 22:41 22:45 22:48 MCV 80.3 MCH 27.1 MCHC 33.8 RDW 14.1 Plt Count 196 MPV 10.1 Immature Gran % (Auto) 0.4 Neut % (Auto) 82.3 H Lymph % (Auto) 10.0 L [place] % (Auto) 4.9 Eos % (Auto) 2.0 Baso % (Auto) 0.4 Lymph # (Auto) 1.3 [place] # (Auto) 0.6 Eos # (Auto) 0.3 Baso # (Auto) 0.1 Abs Immat Gran (auto) 0.05 H Absolute Neuts (auto) 10.7 H Absolute Nucleated RBC 0.000 Nucleated RBC % (auto) 0.0 Anion Gap 12 Estim Creat Clear Calc 108.1 Estimated GFR > 60 Random Glucose 289 H Lactic Acid 1.4 Calcium 9.3 Lipase 33 Imaging Radiologist's Impressions: Impressions Face CT 08/21/23 00:10 IMPRESSION: No acute osseous abnormality. Right periorbital cheek and right paranasal soft tissue swelling. Dental disease. No fluid collection. Assessment and Plan (1) Cellulitis of face: Status: Acute Plan This is a 58-year-old female with no past medical history and not on prescription medications who presents to the emergency department for evaluation of right-sided facial swelling. #. Sepsis due to right-sided facial cellulitis: Will admit patient and initiate empiric IV antibiotics. Also failed p.o. outpatient antibiotics. Resuscitated with IV crystalloids. Lactic acid obtained. Blood culture pending. Will need to follow up with a dentist outpatient #. Obesity: Counseled regarding diet and exercise DVT prophylaxis: Lovenox Full code Admit as inpatient and will require two night minimum hospital stay for IV antibiotics (as above), which is not possible in a lesser acute setting. Quality Stroke Does the patient have a stroke diagnosis?: No VTE Prior VTE?: No VTE Risk Level:: Medical - moderate - high VTE Device Contraindication: Treatment Not Indicated VTE Drug Contraindication: N/A - Med Ordered
[2023-08-21] MEDS: Morphine Sulfate 2 MG/ML CARTRIDGE 4 MG IVPUSH ×5 (01:54→22:48)
[2023-08-21 02:02] VITALS: BP 106/53; PULSE 85; RESP 20; TEMP 37.2; O2SAT 97
--- NOTE | 2023-08-21 02:04 | PC.NURSE ---
Patient complaining of severe pain in her face/head where the swelling is located. Provider notified about severe pain and medications ordered and administered per DEC.
[2023-08-21] MEDS: Acetaminophen 325 MG TABLET 650 MG PO ×4 (04:37→22:59)
[2023-08-21 05:51] LABS: MANUAL DIFF FLAG NO
[2023-08-21 05:58] LABS: Basophils Absolute Auto 0.1 X10*3/uL (0.0-0.2); Basophils Percent Auto 0.4 % (0-2); Eosinophils Absolute Auto 0.2 X10*3/uL (0.0-0.4); Eosinophils Percent Auto 1.8 % (0-4); Hematocrit 36.4 % (37.0-47.0); Imm Gran Abs Auto 0.05 X10*3/uL (0.00-0.03); Imm Gran Pct Auto 0.4 % (0.0-0.4); Lymphocytes Absolute Auto 1.6 X10*3/uL (1.2-4.9); Lymphocytes Percent Auto 12.6 % (20-40); Mean Corpuscular Hemoglobin 26.5 pg (27.0-33.0); Mean Corpuscular Volume 80.4 fL (80.0-98.0); Mean Platelet Volume 10.7 fL (9.4-12.3); Monocytes Absolute Auto 0.8 X10*3/uL (0.1-1.2); Monocytes Percent Auto 6.4 % (2-11); Neutrophils Absolute Auto 9.9 x10*3/uL (2.0-8.3); Neutrophils Percent Auto 78.4 % (45-73); Platelet Count 178 X10*3/uL (160-400); Red Blood Count 4.53 X10*6/uL (4.20-5.50); White Blood Count 12.7 X10*3/uL (4.8-10.8)
[2023-08-21 06:02] VITALS: RESP 16
[2023-08-21] MEDS: Ampicillin Sodium/Sulbactam Na 3 GM in 0.9 % Sodium Chloride 100 ML IV ×4 (06:03→23:55)
[2023-08-21 06:19] LABS: Anion Gap 11 (12-20); Blood Urea Nitrogen 16 mg/dL (9-16); Calcium 8.8 mg/dL (8.4-10.2); Carbon Dioxide 22 mmol/L (22-29); Chloride 106 mmol/L (96-108); Creatinine Clr Calc Pharmacy 110.9; Estimated Glomerular Filt Rate > 60; Glucose Random 253 mg/dL (60-115); Potassium 3.9 mmol/L (3.3-5.1); Sodium 135 mmol/L (135-145)
--- NOTE | 2023-08-21 06:22 | PC.NURSE ---
Nurse to nurse report given to jin Dejesus RN. Patient to be transported to bed [id number] by Loni physical therapist technician.
[2023-08-21 07:02] LABS: Estimated Average Glucose 148 mg/dL; Hemoglobin A1c % 6.8 % (<6.0)
[2023-08-21 07:16] VITALS: BMI 35.3
[2023-08-21] MEDS: Insulin Lispro 100 UNIT/ML 3 ML VIAL SUBCUT ×4 (07:33→20:42)
[2023-08-21] MEDS: Enoxaparin Sodium 40 MG/0.4 ML SYRINGE SUBCUT (07:33)
[2023-08-21 07:36] LABS: Glucose, Whole Blood 236 mg/dL (60-115)
[2023-08-21] MEDS: 0.9 % Sodium Chloride Flush 3 ML SYRINGE IVFLUSH ×3 (07:37→20:43)
[2023-08-21 07:44] VITALS: BP 147/71; PULSE 81; RESP 18; TEMP 37.3; O2SAT 97
--- NOTE | 2023-08-21 08:05 | PC.NURSE ---
Pt admitted to 379 from the ER at 0700. Pt presents with complaints of right facial pain and swelling , had been on a week course of PO ABx pre dental procedure without good results so came to the ER . Right side of face is swollen and red is able to open to her eye a little , pt requested an ice pack
--- NOTE | 2023-08-21 10:21 | P.EN_ITS ---
Event Note Date of Service: 08/21/23 Event Note: 58-year-old female with no past medical history and not on prescription medications who presents to the emergency department for evaluation of right- sided facial swelling. Patient states it started 1 day prior to presentation. Patient states she has a history of dental infection and was taking amoxicillin. Patient states she completed the course of p.o. amoxicillin but the infection spread from her teeth to the right side of the face. No fevers or chills. Complaining of right facial pain, no fevers, no headache Right facial hyperemia, swelling right upper lid, right face. 58-year-old female with no past medical history and not on prescription medicat ions who presents to the emergency department for evaluation of right-sided facial swelling. #. Sepsis due to right-sided facial cellulitis: Continue IV Unasyn day 1 No fever chills persistent leukocytosis , failed p.o. outpatient antibiotics CT face showed right periorbital ,cheeks and right paranasal soft tissue thickening. Continue IV morphine, oxycodone and Tylenol for pain ID consult obtained. # diabetes mellitus type 2 history of gestational diabetes is not on any medications at home hemoglobin A1c 6.8 Will add Lantus 10 units at bedtime and continue insulin sliding stool scale at time of discharge place on metformin #. Obesity: Counseled regarding diet and exercise DVT prophylaxis: Jing Full code Time Spent With Patient Time: Total time managing care of this patient today ____ minutes.
[2023-08-21 11:33] LABS: Glucose, Whole Blood 245 mg/dL (60-115)
--- NOTE | 2023-08-21 11:37 | PHA.MEDREC ---
Pharmacy Consult ? Medication Reconciliation Pharmacy has completed the medication reconciliation. Spoke to patient and verified medication list.
[2023-08-21 15:30] VITALS: BP 127/78; PULSE 95; RESP 22; TEMP 37.4; O2SAT 99
[2023-08-21] MEDS: oxyCODONE HCl Immed Release 5 MG TABLET PO (15:35)
[2023-08-21 16:17] LABS: Glucose, Whole Blood 284 mg/dL (60-115)
--- NOTE | 2023-08-21 16:23 | P.CNID_ITS ---
History of Present Illness Data of Consult Service Date: 08/14/23 Requesting physician: Marcos Mathur Primary Care Provider: Unknown Physician HPI Reason for consult: right facial swelling She has right facial swelling for a week and didnt respond to Amoxicillin for a week. She has dental problems with decay right side. Her eye is not compromised. Review of Systems 2 Review of Systems: Yes all other systems are reviewed and are negative [facility] Past Medical History Medical History COPD (chronic obstructive pulmonary disease) Obesity Tobacco use No known health problems Family History Family history: reviewed and not pertinent Surgical History Surgical History S/P laparoscopic cholecystectomy Hx of section Social History Social History Household Members: Significant Other and Children Housing: House Do you presently have visiting nurse or other home services: No Alcohol intake: never Patient Tobacco Use Status: Former Tobacco user Tobacco use type: Cigarette Cigarettes Per Day: 10 Second Hand Smoke Exposure: No Substance Use Type: Marijuana Advance Directives Date on File: 06/12/21 service: No Current occupational status: unemployed Meds Allergies Allergy/AdvReac Type Severity Reaction Status Date / Time codeine [CODEINE] AdvReac Severe TYL #3 - Verified 06/21/21 06:32 HEADACHE Active Medications: Current Medications Acetaminophen (Acetaminophen 325 Mg Tablet) 650 mg PO Q6H PRN PRN Reason: Pain, Mild (Pain Scale 1-3) Last Admin: 08/21/23 15:35 Dose: 650 mg Dextrose (Dextrose 50 % 25 Gm/50 Ml Syringe) 25 gm IVPUSH Q15M PRN; Protocol PRN Reason: per Hypoglycemia Standing Ord. Enoxaparin Sodium (Enoxaparin Sodium 40 Mg/0.4 Ml Syringe) 40 mg SUBCUT Q24H [facility] Last Admin: 08/21/23 07:33 Dose: 40 mg Glucose (Glucose Gel 15 Gm Gel..Gram.) 15 gm PO Q15M PRN; Protocol PRN Reason: per Hypoglycemia Standing Ord. Ampicillin Sodium/Sulbactam (Sodium 3 gm/ Sodium Chloride) 100 mls @ 200 mls/hr IV Q6H [facility] Last Infusion: 08/21/23 15:17 Dose: Infused Insulin Glargine (Insulin Glargine,Hum.Rec.Anlog 100 Unit/Ml 10 Ml Vial) 10 unit SUBCUT BEDTIME [facility] Insulin Human Lispro (Insulin Lispro 100 Unit/Ml 3 Ml Vial) 0 unit SUBCUT QIDACHS [facility]; Protocol Last Admin: 08/21/23 11:49 Dose: 6 unit Melatonin (Melatonin 3 Mg Tablet) 6 mg PO BEDTIME PRN PRN Reason: Insomnia Morphine Sulfate (Morphine Sulfate 2 Mg/Ml Cartridge) 4 mg IVPUSH Q4H PRN; Protocol PRN Reason: Pain, Moderate(Pain Scale 4-6) Last Admin: 08/21/23 11:42 Dose: 4 mg Ondansetron HCl (Ondansetron Hcl 4 Mg/2 Ml Vial) 4 mg IVPUSH Q8H PRN PRN Reason: Nausea and Vomiting Oxycodone HCl (Oxycodone Hcl Immed Release 5 Mg Tablet) 5 mg PO Q4H PRN PRN Reason: Pain, Moderate(Pain Scale 4-6) Last Admin: 08/21/23 15:35 Dose: 5 mg Sodium Chloride (0.9 % Sodium Chloride Flush 3 Ml Syringe) [facility] Last Admin: 08/21/23 15:38 Dose: 3 ml Home Medications Medication Instructions Recorded Confirmed Last Taken Type aspirin 325 mg tablet,delayed 325 mg PO BID PRN Pain 08/21/23 08/21/23 Unknown History release Physical Exam 2 Vital Signs: Vital Signs: Last Vital Signs Temp 99.3 F 08/21/23 15:30 Pulse 95 08/21/23 15:30 Resp 22 H 08/21/23 15:30 BP 127/78 08/21/23 15:30 Pulse Ox 99 08/21/23 15:30 O2 Del Method Room Air 08/21/23 15:30 BMI result Body Mass Index 35.3 Eyes: Other: right facial swelling no eye compromise poor dentition Results Labs 08/21/23 04:25 08/21/23 04:25 Labs: Short CBC 08/20/23 08/21/23 Range/Units 22:48 04:25 WBC 12.9 H 12.7 H (4.8-10.8) X10*3/uL Hgb 13.1 12.0 (12.0-16.0) g/dl Hct 38.8 36.4 L (37.0-47.0) % Plt Count 196 178 (160-400) X10*3/uL BMP 08/20/23 08/21/23 22:45 04:25 Sodium 137 135 Potassium 4.0 3.9 Chloride 104 106 Carbon Dioxide 25 22 BUN 21 H 16 Creatinine 0.79 0.77 Calcium 9.3 8.8 Assessment and Plan (1) Cellulitis of face: Status: Acute Plan It failed po Amoxicillin. IV Unasyn for 2-3 days and then po Clindamycin 450 qid for a week See dentist.
[2023-08-21 19:35] VITALS: BP 165/77; PULSE 81; RESP 16; TEMP 36.9; O2SAT 95
[2023-08-21 20:28] LABS: Glucose, Whole Blood 232 mg/dL (60-115)
[2023-08-21] MEDS: Insulin Glargine,Hum.rec.anlog 100 UNIT/ML 10 ML VIAL 10 UNIT SUBCUT (20:42)
[2023-08-21] MEDS: Melatonin 3 MG TABLET 6 MG PO (22:59)
[2023-08-21 23:28] VITALS: RESP 16
[2023-08-22 03:02] VITALS: BP 120/56; PULSE 81; RESP 16; TEMP 37.1; O2SAT 97
[2023-08-22] MEDS: Morphine Sulfate 2 MG/ML CARTRIDGE 4 MG IVPUSH ×5 (03:14→21:13)
[2023-08-22 04:01] VITALS: RESP 16
[2023-08-22] MEDS: Ampicillin Sodium/Sulbactam Na 3 GM in 0.9 % Sodium Chloride 100 ML IV ×4 (05:31→23:46)
[2023-08-22] MEDS: polyethylene glycoL 3350 17 GM POWD.PACK PO (05:52)
[2023-08-22 06:51] LABS: Hemoglobin 11.7 g/dl (12.0-16.0); Mean Corpuscular HGB Conc 33.4 g/dl (31.0-35.0); Mean Corpuscular Volume 80.8 fL (80.0-98.0); Mean Platelet Volume 10.7 fL (9.4-12.3); Platelet Count 190 X10*3/uL (160-400); Red Blood Count 4.33 X10*6/uL (4.20-5.50); White Blood Count 12.1 X10*3/uL (4.8-10.8)
[2023-08-22 06:59] VITALS: BP 140/66; PULSE 80; RESP 18; TEMP 37.2; O2SAT 97
[2023-08-22 07:31] LABS: Glucose, Whole Blood 133 mg/dL (60-115)
[2023-08-22] MEDS: Enoxaparin Sodium 40 MG/0.4 ML SYRINGE SUBCUT (08:00)
[2023-08-22] MEDS: 0.9 % Sodium Chloride Flush 3 ML SYRINGE IVFLUSH ×3 (08:02→23:44)
[2023-08-22] MEDS: Acetaminophen 325 MG TABLET 650 MG PO ×3 (08:22→21:12)
[2023-08-22 11:22] LABS: Glucose, Whole Blood 199 mg/dL (60-115)
[2023-08-22] MEDS: Insulin Lispro 100 UNIT/ML 3 ML VIAL SUBCUT ×3 (11:51→21:12)
--- NOTE | 2023-08-22 11:52 | MHC.CM.PN ---
PLAN IS FOR TWO MORE DAYS OF IV ABX AND PLAN FOR FOLLOW UP OUTPATIENT WITH DENTIST. PATIENT REPORTS THAT SHE LOST HER INSURANCE. [facility] [employer] DOES NOT HELP WITH DENTAL INSURANCE. PATIENT MAY BE ABLE TO SECURE ON [employer]
--- NOTE | 2023-08-22 12:31 | P.PNIM_ITS ---
Subjective Subjective Date of Service: 08/22/23 Interval History: c/o R-sided facial swelling/numbness also c/o visual blurring in R which she says has been present since yesterday no fever Review of Systems Review of Systems: Yes all other systems are reviewed and are negative Physical Exam 2 Vital Signs: Vital Signs: Last Vital Signs Temp 98.9 F 08/22/23 06:59 Pulse 80 08/22/23 06:59 Resp 18 08/22/23 06:59 BP 140/66 H 08/22/23 06:59 Pulse Ox 97 08/22/23 06:59 O2 Del Method Room Air 08/22/23 06:59 BMI result Body Mass Index 35.3 Gen: in no acute distress HEENT: EOMI, sclera anicteric, moist mucus membranes Neck: supple Lungs: clear to auscultation bilaterally Heart: regular rate and rhythm, no murmurs Abd: soft, non-tender, non-distended Ext: no edema Skin: R maxilla swollen with erythema Neuro: alert and oriented x3, no focal findings Psych: appropriate affect Objective Data Active Medications Acetaminophen (Acetaminophen 325 Mg Tablet) 650 mg PO Q6H PRN PRN Reason: Pain, Mild (Pain Scale 1-3) Last Admin: 08/22/23 08:22 Dose: 650 mg Documented By: PENNY Dextrose (Dextrose 50 % 25 Gm/50 Ml Syringe) 25 gm IVPUSH Q15M PRN; Protocol PRN Reason: per Hypoglycemia Standing Ord. Enoxaparin Sodium (Enoxaparin Sodium 40 Mg/0.4 Ml Syringe) 40 mg SUBCUT Q24H [facility] Last Admin: 08/22/23 08:00 Dose: 40 mg Documented By: PENNY Glucose (Glucose Gel 15 Gm Gel..Gram.) 15 gm PO Q15M PRN; Protocol PRN Reason: per Hypoglycemia Standing Ord. Ampicillin Sodium/Sulbactam (Sodium 3 gm/ Sodium Chloride) 100 mls @ 200 mls/hr IV Q6H [facility] Last Infusion: 08/22/23 12:31 Dose: Infused Documented By: PERLA Insulin Glargine (Insulin Glargine,Hum.Rec.Anlog 100 Unit/Ml 10 Ml Vial) 10 unit SUBCUT BEDTIME [facility] Last Admin: 08/21/23 20:42 Dose: 10 unit Documented By: TONY Insulin Human Lispro (Insulin Lispro 100 Unit/Ml 3 Ml Vial) 0 unit SUBCUT [facility]; Protocol Last Admin: 08/22/23 11:51 Dose: 4 unit Documented By: PENNY Melatonin (Melatonin 3 Mg Tablet) 6 mg PO BEDTIME PRN PRN Reason: Insomnia Last Admin: 08/21/23 22:59 Dose: 6 mg Documented By: TONY Morphine Sulfate (Morphine Sulfate 2 Mg/Ml Cartridge) 4 mg IVPUSH Q4H PRN; Protocol PRN Reason: Pain, Moderate(Pain Scale 4-6) Last Admin: 08/22/23 11:34 Dose: 4 mg Documented By: PENNY Ondansetron HCl (Ondansetron Hcl 4 Mg/2 Ml Vial) 4 mg IVPUSH Q8H PRN PRN Reason: Nausea and Vomiting Oxycodone HCl (Oxycodone Hcl Immed Release 5 Mg Tablet) 5 mg PO Q4H PRN PRN Reason: Pain, Moderate(Pain Scale 4-6) Last Admin: 08/21/23 15:35 Dose: 5 mg Documented By: OMAR Sodium Chloride (0.9 % Sodium Chloride Flush 3 Ml Syringe) [facility] Last Admin: 08/22/23 08:02 Dose: 3 ml Documented By: PENNY Labs 08/22/23 05:39 08/21/23 04:25 Labs: Laboratory Results - last 24 hr 08/21/23 08/21/23 08/22/23 16:13 20:21 05:39 MCV 80.8 MCH 27.0 MCHC 33.4 RDW 14.0 Plt Count 190 MPV 10.7 Absolute Nucleated RBC 0.000 Nucleated RBC % (auto) 0.0 POC Glucose 284 H 232 H 08/22/23 08/22/23 07:25 11:16 MCV MCH MCHC RDW Plt Count MPV Absolute Nucleated RBC Nucleated RBC % (auto) POC Glucose 133 H 199 H Microbiology Microbiology Results: Microbiology 08/20/23 22:47 Blood Culture - Preliminary Blood - Venous No growth after 24 hours. 08/20/23 22:45 Blood Culture - Preliminary Blood - Venous No growth after 24 hours. Assessment and Plan (1) Cellulitis of face: Status: Acute Assessment and Plan: d2 58yo F with DM2 [new dx, hx of GDM] presenting with R-sided facial swelling and found to be septic sepsis due to R-sided facial cellulitis - IV amp-sul d2, follow BCx, ID consulted (likely IV amp-sul for 2-3d then clinda 450mg qid x7d) - repeat facial CT with contrast to ensure no orbital involvement - pt will need to arrange dental appt [facility] DM2, new dx with A1c 6.8 - on basal-bolus insulin here, d/c on MTF VTE ppx - LMWH dispo - eventual home In my clinical judgment, the patient requires continued inpatient hospitalization for the following reasons: IV ABX Total time managing care of this patient today: 35 minutes. Quality Stroke Does the patient have a stroke diagnosis?: No VTE Prior VTE?: No VTE Risk Level:: Medical - moderate - high VTE Device Contraindication: Treatment Not Indicated VTE Drug Contraindication: N/A - Med Ordered
[2023-08-22] MEDS: iohexoL 350 MG/ML 100 ML INFUS..BTL IV (16:11)
[2023-08-22 16:16] VITALS: BP 119/56; PULSE 78; RESP 20; TEMP 36; O2SAT 97
[2023-08-22 16:22] LABS: Glucose, Whole Blood 159 mg/dL (60-115)
[2023-08-22 16:36] VITALS: RESP 19
[2023-08-22 19:58] VITALS: BP 146/60; PULSE 78; RESP 18; TEMP 36.2; O2SAT 95
[2023-08-22 20:29] LABS: Glucose, Whole Blood 179 mg/dL (60-115)
[2023-08-22] MEDS: Melatonin 3 MG TABLET 6 MG PO (21:11)
[2023-08-22] MEDS: Docusate Sodium 100 MG CAPSULE PO (21:11)
[2023-08-22] MEDS: Insulin Glargine,Hum.rec.anlog 100 UNIT/ML 10 ML VIAL 10 UNIT SUBCUT (21:12)
[2023-08-23] VITALS (7 sets, daily range): BP systolic 116–126; BP diastolic 56–67; PULSE 70–86; RESP 16–19; TEMP 36–36.5; O2SAT 94–98
[2023-08-23] MEDS: Morphine Sulfate 2 MG/ML CARTRIDGE 4 MG IVPUSH ×6 (01:32→23:52)
[2023-08-23] MEDS: Ketorolac Tromethamine 30 MG/ML VIAL IVPUSH (01:57)
[2023-08-23] MEDS: Ampicillin Sodium/Sulbactam Na 3 GM in 0.9 % Sodium Chloride 100 ML IV ×4 (05:24→23:53)
[2023-08-23 05:48] LABS: Hematocrit 32.4 % (37.0-47.0); Hemoglobin 10.8 g/dl (12.0-16.0); Mean Corpuscular HGB Conc 33.3 g/dl (31.0-35.0); Mean Platelet Volume 10.1 fL (9.4-12.3); Platelet Count 171 X10*3/uL (160-400); Red Cell Distribution Width 13.9 % (11.0-16.0); White Blood Count 9.4 X10*3/uL (4.8-10.8)
[2023-08-23 06:03] LABS: C Reactive Protein 9.23 mg/dL (< or = 0.50)
[2023-08-23 07:16] LABS: Glucose, Whole Blood 98 mg/dL (60-115)
[2023-08-23] MEDS: Docusate Sodium 100 MG CAPSULE PO ×2 (07:58→20:44)
[2023-08-23] MEDS: Enoxaparin Sodium 40 MG/0.4 ML SYRINGE SUBCUT (07:58)
[2023-08-23] MEDS: 0.9 % Sodium Chloride Flush 3 ML SYRINGE IVFLUSH ×3 (07:58→20:45)
[2023-08-23] MEDS: dexAMETHasone sod phosphate 10 MG/ML VIAL IVPUSH (10:36)
--- NOTE | 2023-08-23 10:51 | P.PNIM_ITS ---
Subjective Subjective Date of Service: 08/23/23 Interval History: swelling improved no visual blurring no fever Review of Systems Review of Systems: Yes all other systems are reviewed and are negative Physical Exam 2 Vital Signs: Vital Signs: Last Vital Signs Temp 97.7 F 08/23/23 07:53 Pulse 70 08/23/23 07:53 Resp 19 08/23/23 09:43 BP 116/66 08/23/23 07:53 Pulse Ox 98 08/23/23 07:53 O2 Del Method Room Air 08/23/23 07:53 BMI result Body Mass Index 35.3 Gen: in no acute distress HEENT: EOMI, sclera anicteric, moist mucus membranes, extensive dental caries Neck: supple Lungs: clear to auscultation bilaterally Heart: regular rate and rhythm, no murmurs Abd: soft, non-tender, non-distended Ext: no edema Skin: R maxilla and infraorbital area swollen with erythema improved from yesterday Neuro: alert and oriented x3, no focal findings Psych: appropriate affect Objective Data Active Medications Acetaminophen (Acetaminophen 325 Mg Tablet) 650 mg PO Q6H PRN PRN Reason: Pain, Mild (Pain Scale 1-3) Last Admin: 08/22/23 21:12 Dose: 650 mg Documented By: TONY Dextrose (Dextrose 50 % 25 Gm/50 Ml Syringe) 25 gm IVPUSH Q15M PRN; Protocol PRN Reason: per Hypoglycemia Standing Ord. Docusate Sodium (Docusate Sodium 100 Mg Capsule) 100 mg PO BID [facility] Last Admin: 08/23/23 07:58 Dose: 100 mg Documented By: PERLA Enoxaparin Sodium (Enoxaparin Sodium 40 Mg/0.4 Ml Syringe) 40 mg SUBCUT Q24H [facility] Last Admin: 08/23/23 07:58 Dose: 40 mg Documented By: PERLA Glucose (Glucose Gel 15 Gm Gel..Gram.) 15 gm PO Q15M PRN; Protocol PRN Reason: per Hypoglycemia Standing Ord. Ampicillin Sodium/Sulbactam (Sodium 3 gm/ Sodium Chloride) 100 mls @ 200 mls/hr IV Q6H [facility] Last Infusion: 08/23/23 06:27 Dose: Infused Documented By: TONY Insulin Glargine (Insulin Glargine,Hum.Rec.Anlog 100 Unit/Ml 10 Ml Vial) 10 unit SUBCUT BEDTIME [facility] Last Admin: 08/22/23 21:12 Dose: 10 unit Documented By: TONY Insulin Human Lispro (Insulin Lispro 100 Unit/Ml 3 Ml Vial) 0 unit SUBCUT QIDACHS [facility]; Protocol Last Admin: 08/23/23 07:23 Dose: Not Given Documented By: PERLA Non-Admin Reason: No Insulin Coverage Melatonin (Melatonin 3 Mg Tablet) 6 mg PO BEDTIME PRN PRN Reason: Insomnia Last Admin: 08/22/23 21:11 Dose: 6 mg Documented By: TONY Morphine Sulfate (Morphine Sulfate 2 Mg/Ml Cartridge) 4 mg IVPUSH Q4H PRN; Protocol PRN Reason: Pain, Moderate(Pain Scale 4-6) Last Admin: 08/23/23 09:43 Dose: 4 mg Documented By: PERLA Ondansetron HCl (Ondansetron Hcl 4 Mg/2 Ml Vial) 4 mg IVPUSH Q8H PRN PRN Reason: Nausea and Vomiting Oxycodone HCl (Oxycodone Hcl Immed Release 5 Mg Tablet) 5 mg PO Q4H PRN PRN Reason: Pain, Moderate(Pain Scale 4-6) Last Admin: 08/21/23 15:35 Dose: 5 mg Documented By: OMAR Sodium Chloride (0.9 % Sodium Chloride Flush 3 Ml Syringe) 3 ml IVFLUSH [facility] Last Admin: 08/23/23 07:58 Dose: 3 ml Documented By: PERLA Labs 08/23/23 05:23 08/21/23 04:25 Labs: Laboratory Results - last 24 hr 08/22/23 08/22/23 08/22/23 11:16 16:18 20:25 MCV MCH MCHC RDW Plt Count MPV Absolute Nucleated RBC Nucleated RBC % (auto) POC Glucose 199 H 159 H 179 H C-Reactive Protein 08/23/23 08/23/23 05:23 07:12 MCV 81.0 MCH 27.0 MCHC 33.3 RDW 13.9 Plt Count 171 MPV 10.1 Absolute Nucleated RBC 0.000 Nucleated RBC % (auto) 0.0 POC Glucose 98 C-Reactive Protein 9.[address] 08/22/23 16:11 IMPRESSION: Right maxillary cuspid periapical lucency with associated dehiscence of the overlying outer cortex and abscess formation. Abscess measures up to 1.3 x 0.3 cm in the axial plane. Correlation with odontogenic examination is recommended. There is extensive asymmetric right-sided facial soft tissue stranding. This extends into the right periorbital soft tissues without definite post septal or retrobulbar involvement. Coarse calcification along the right aspect of the sella turcica is indeterminate. Extensive odontogenic disease with dental caries and periapical lucencies. Microbiology Microbiology Results: Microbiology 08/20/23 22:47 Blood Culture - Preliminary Blood - Venous No growth after 48 hours. 08/20/23 22:45 Blood Culture - Preliminary Blood - Venous No growth after 48 hours. Assessment and Plan (1) Cellulitis of face: Status: Acute Assessment and Plan: d3 58yo F with DM2 [new dx, hx of GDM] presenting with R-sided facial swelling and found to be septic sepsis due to R-sided facial cellulitis - IV amp-sul d3, follow BCx, ID consulted (likely IV amp-sul for 1-2d then clinda 450mg qid x7d) - repeat facial CT with contrast to ensure no orbital involvement - pt will need to arrange dental appt [facility] for tooth extraction and possible abscess drainage DM2, new dx with A1c 6.8 - on basal-bolus insulin here, d/c on MTF VTE ppx - LMWH dispo - eventual home In my clinical judgment, the patient requires continued inpatient hospitalization for the following reasons: IV ABX Total time managing care of this patient today: 35 minutes. Quality Stroke Does the patient have a stroke diagnosis?: No VTE Prior VTE?: No VTE Risk Level:: Medical - moderate - high VTE Device Contraindication: Treatment Not Indicated VTE Drug Contraindication: N/A - Med Ordered
[2023-08-23 11:40] LABS: Glucose, Whole Blood 160 mg/dL (60-115)
[2023-08-23] MEDS: Fluconazole 150 MG TABLET PO (12:10)
[2023-08-23] MEDS: Insulin Lispro 100 UNIT/ML 3 ML VIAL SUBCUT ×3 (12:13→20:45)
--- NOTE | 2023-08-23 13:42 | MHC.CM.PN ---
Per rounds, Pt not medically cleared for D/C. CM to follow.
[2023-08-23] MEDS: Acetaminophen 325 MG TABLET 650 MG PO ×2 (13:55→20:44)
[2023-08-23 16:36] LABS: Glucose, Whole Blood 277 mg/dL (60-115)
[2023-08-23 20:39] LABS: Glucose, Whole Blood 336 mg/dL (60-115)
[2023-08-23] MEDS: Insulin Glargine,Hum.rec.anlog 100 UNIT/ML 10 ML VIAL 10 UNIT SUBCUT (20:45)
--- NOTE | 2023-08-24 00:03 | PC.NURSE ---
Pt seen on bed, independently ambulating, still with right sided facial swelling but no redness noted, still c/o tenderness on the site, prn Tylenol given, with minimal effect but tolerating, pt requested for ice pack later while waiting for her morphine time and provided, instructed pt to call for med, c/o constipation and claimed last BM was yesterday, due COlace given, pt also requested for prune juice and given, report given to PAPI Garrett.
[2023-08-24] MEDS: Melatonin 3 MG TABLET 6 MG PO (01:14)
[2023-08-24] MEDS: Acetaminophen 325 MG TABLET 650 MG PO ×3 (02:48→20:54)
[2023-08-24 03:49] VITALS: BP 130/61; PULSE 75; RESP 18; TEMP 37.1; O2SAT 98
[2023-08-24 03:53] LABS: Glucose, Whole Blood 383 mg/dL (60-115)
[2023-08-24] MEDS: Morphine Sulfate 2 MG/ML CARTRIDGE 4 MG IVPUSH ×5 (04:11→21:17)
[2023-08-24] MEDS: Insulin Regular, Human 100 UNIT/ML 3 ML VIAL IVPUSH (04:23)
--- NOTE | 2023-08-24 04:31 | PC.NURSE ---
0350, patient ambulating in hallway, asked to have her blood sugar checked as she thought it may be elevated. Noted pt had shake and some fast food choices with her at 0000. poc by glucometer with a reading of 383. pts symptoms, of a headache and the ongoing pain to right face, jaw line. hospitalist notified and order given for 5 units reg insulin ivp, insulin administered at 0428. will continue to monitor.
[2023-08-24] MEDS: Ampicillin Sodium/Sulbactam Na 3 GM in 0.9 % Sodium Chloride 100 ML IV ×3 (06:27→18:03)
[2023-08-24 06:28] LABS: Glucose, Whole Blood 337 mg/dL (60-115)
--- NOTE | 2023-08-24 06:40 | PC.NURSE ---
repeat blood sugar at 0630 337, will recheck and cover with am reading and scale. pt without symptoms
[2023-08-24 07:40] VITALS: BP 133/63; PULSE 72; RESP 20; TEMP 36.6; O2SAT 97
[2023-08-24 07:54] LABS: Glucose, Whole Blood 340 mg/dL (60-115)
[2023-08-24] MEDS: Insulin Lispro 100 UNIT/ML 3 ML VIAL SUBCUT ×4 (07:59→20:44)
[2023-08-24] MEDS: 0.9 % Sodium Chloride Flush 3 ML SYRINGE IVFLUSH (08:01)
[2023-08-24] MEDS: Docusate Sodium 100 MG CAPSULE PO (08:29)
[2023-08-24] MEDS: Enoxaparin Sodium 40 MG/0.4 ML SYRINGE SUBCUT (08:29)
--- NOTE | 2023-08-24 10:46 | P.PNIM_ITS ---
Subjective Subjective Date of Service: 08/24/23 Interval History: facial swelling slightly improved, still quite red no visual change no fever Review of Systems Review of Systems: Yes all other systems are reviewed and are negative Physical Exam 2 Vital Signs: Vital Signs: Last Vital Signs Temp 97.8 F 08/24/23 07:40 Pulse 72 08/24/23 07:40 Resp 20 08/24/23 07:40 BP 133/63 08/24/23 07:40 Pulse Ox 97 08/24/23 07:40 O2 Del Method Room Air 08/24/23 07:40 BMI result Body Mass Index 35.3 Gen: in no acute distress HEENT: EOMI, sclera anicteric, moist mucus membranes, extensive dental caries Neck: supple Lungs: clear to auscultation bilaterally Heart: regular rate and rhythm, no murmurs Abd: soft, non-tender, non-distended Ext: no edema Skin: R maxilla and infraorbital area swollen with erythema Neuro: alert and oriented x3, no focal findings Psych: appropriate affect Objective Data Active Medications Acetaminophen (Acetaminophen 325 Mg Tablet) 650 mg PO Q6H PRN PRN Reason: Pain, Mild (Pain Scale 1-3) Last Admin: 08/24/23 02:48 Dose: 650 mg Documented By: MAYRA Dextrose (Dextrose 50 % 25 Gm/50 Ml Syringe) 25 gm IVPUSH Q15M PRN; Protocol PRN Reason: per Hypoglycemia Standing Ord. Docusate Sodium (Docusate Sodium 100 Mg Capsule) 100 mg PO BID [facility] Last Admin: 08/24/23 08:29 Dose: 100 mg Documented By: ESPERANZA Enoxaparin Sodium (Enoxaparin Sodium 40 Mg/0.4 Ml Syringe) 40 mg SUBCUT Q24H [facility] Last Admin: 08/24/23 08:29 Dose: 40 mg Documented By: ESPERANZA Glucose (Glucose Gel 15 Gm Gel..Gram.) 15 gm PO Q15M PRN; Protocol PRN Reason: per Hypoglycemia Standing Ord. Ampicillin Sodium/Sulbactam (Sodium 3 gm/ Sodium Chloride) 100 mls @ 200 mls/hr IV Q6H [facility] Last Infusion: 08/24/23 07:00 Dose: Infused Documented By: MAYRA Insulin Glargine (Insulin Glargine,Hum.Rec.Anlog 100 Unit/Ml 10 Ml Vial) 10 unit SUBCUT BEDTIME [facility] Last Admin: 08/23/23 20:45 Dose: 10 unit Documented By: ULISES Insulin Human Lispro (Insulin Lispro 100 Unit/Ml 3 Ml Vial) 0 unit SUBCUT QIDACHS [facility]; Protocol Last Admin: 08/24/23 07:59 Dose: 10 unit Documented By: ESPERANZA Melatonin (Melatonin 3 Mg Tablet) 6 mg PO BEDTIME PRN PRN Reason: Insomnia Last Admin: 08/24/23 01:14 Dose: 6 mg Documented By: MAYRA Morphine Sulfate (Morphine Sulfate 2 Mg/Ml Cartridge) 4 mg IVPUSH Q4H PRN; Protocol PRN Reason: Pain, Moderate(Pain Scale 4-6) Last Admin: 08/24/23 08:30 Dose: 4 mg Documented By: ESPERANZA Ondansetron HCl (Ondansetron Hcl 4 Mg/2 Ml Vial) 4 mg IVPUSH Q8H PRN PRN Reason: Nausea and Vomiting Oxycodone HCl (Oxycodone Hcl Immed Release 5 Mg Tablet) 5 mg PO Q4H PRN PRN Reason: Pain, Moderate(Pain Scale 4-6) Last Admin: 08/21/23 15:35 Dose: 5 mg Documented By: OMAR Sodium Chloride (0.9 % Sodium Chloride Flush 3 Ml Syringe) [facility] Last Admin: 08/24/23 08:01 Dose: 3 ml Documented By: ESPERANZA Labs 08/23/23 05:23 08/21/23 04:25 Labs: Laboratory Results - last 24 hr 08/23/23 08/23/23 08/23/23 11:37 16:29 20:24 POC Glucose 160 H 277 H 336 H 08/24/23 08/24/23 08/24/23 03:49 06:25 07:42 POC Glucose 383 H* 337 H 340 H Assessment and Plan (1) Cellulitis of face: Status: Acute Assessment and Plan: d4 58yo F with DM2 [new dx, hx of GDM] presenting with R-sided facial swelling and found to be septic sepsis due to R-sided facial cellulitis - IV amp-sul d4, follow BCx, ID consulted (likely IV amp-sul for 1-2d then clinda 450mg qid x7d) - pt will need to arrange dental appt [facility] for tooth extraction and possible abscess drainage DM2, new dx with A1c 6.8 and hyperglycemia - on basal-bolus insulin here- increase doses, d/c on MTF VTE ppx - LMWH dispo - eventual home In my clinical judgment, the patient requires continued inpatient hospitalization for the following reasons: IV ABX Total time managing care of this patient today: 35 minutes. Quality Stroke Does the patient have a stroke diagnosis?: No VTE Prior VTE?: No VTE Risk Level:: Medical - moderate - high VTE Device Contraindication: Treatment Not Indicated VTE Drug Contraindication: N/A - Med Ordered
[2023-08-24 11:33] LABS: Glucose, Whole Blood 247 mg/dL (60-115)
--- NOTE | 2023-08-24 13:54 | MHC.CM.PN ---
PER MD ROUNDS, PT WILL LIKELY BE READY TO DC TOMORROW CURRENT DCP IS HOME WITH NO SERVICES PT AWARE SHE WILL NEED TO FOLLOW UP WITH A DENTAL PROVIDER PT TO ARRANGE TRANSPORT
[2023-08-24 15:19] VITALS: BP 134/63; PULSE 74; RESP 20; TEMP 36.4; O2SAT 99
[2023-08-24 16:19] LABS: Glucose, Whole Blood 212 mg/dL (60-115)
[2023-08-24 19:31] VITALS: BP 125/58; PULSE 66; RESP 18; TEMP 36.7; O2SAT 97
[2023-08-24 20:30] LABS: Glucose, Whole Blood 221 mg/dL (60-115)
[2023-08-24] MEDS: Insulin Glargine,Hum.rec.anlog 100 UNIT/ML 10 ML VIAL 14 UNIT SUBCUT (20:44)
[2023-08-24] MEDS: Ketorolac Tromethamine 30 MG/ML VIAL IVPUSH (21:17)
[2023-08-25] MEDS: Ampicillin Sodium/Sulbactam Na 3 GM in 0.9 % Sodium Chloride 100 ML IV ×2 (00:01→05:49)
[2023-08-25] MEDS: 0.9 % Sodium Chloride Flush 3 ML SYRINGE IVFLUSH ×2 (00:02→08:20)
[2023-08-25] MEDS: Melatonin 3 MG TABLET 6 MG PO (00:10)
[2023-08-25 04:00] VITALS: BP 126/58; PULSE 64; RESP 18; TEMP 36.6; O2SAT 98
[2023-08-25] MEDS: Morphine Sulfate 2 MG/ML CARTRIDGE 4 MG IVPUSH ×2 (05:05→09:13)
[2023-08-25] MEDS: Docusate Sodium 100 MG CAPSULE PO (06:27)
[2023-08-25 08:00] VITALS: BP 127/69; PULSE 61; RESP 18; TEMP 36; O2SAT 100
[2023-08-25 08:12] LABS: Glucose, Whole Blood 145 mg/dL (60-115)
[2023-08-25] MEDS: Insulin Lispro 100 UNIT/ML 3 ML VIAL SUBCUT ×2 (08:18→11:51)
[2023-08-25] MEDS: Enoxaparin Sodium 40 MG/0.4 ML SYRINGE SUBCUT (08:18)
--- NOTE | 2023-08-25 11:17 | P.DS_ITS ---
DS: Providers Provider Date of Service: 08/25/23 Date of admission: 08/21/23 01:41 Date of discharge: 08/25/23 Primary care physician: Unknown Physician Consults: 08/21/23 10:19 Consult to Infectious Diseases Routine Consulting Provider: Gwendolyn Ortega Reason for consultation: facial cellulitis Has provider been notified: No DS: Diagnosis Discharge Diagnosis (1) Cellulitis of face: Status: Acute (2) Dental abscess: Status: Acute (3) New onset type 2 diabetes mellitus: Status: Acute (4) Sepsis: Status: Acute DS: Summary Hospital Course Hospital Course: from admission H+P 08/21/23 by hospitalist Enrique Garsia MD: This is a 58-year-old female with no past medical history and not on prescription medications who presents to the emergency department for evaluation of right-sided facial swelling. Patient states it started 1 day prior to presentation. Patient states she has a history of dental infection and was taking amoxicillin. Patient states she completed the course of p.o. amoxicillin but the infection spread from her teeth to the right side of the face. No fevers or chills. Does have a history of dental abscesses. No chest discomfort, palpitations, shortness of breath, abdominal pain, changes in urinary or bowel habits. In the emergency department, patient was found to be septic. No fluid collection on CT of the face Ms Rivera, a 58 yo F with DM2 [new dx, hx of GDM] presenting with R-sided facial swelling was found to be septic and admitted to hospitalist service with Infectious Disease consultation. She improved with 5 days of IV ampicillin- sulbactam. Contrast CT showed odontogenic abscess associated with right maxillary cuspid infection. As our hospital does not have dental consultation, she will arrange a dentist appointment [facility] for tooth extraction and possible abscess drainage. She was discharged on amoxicillin-clavaulanate for 9 days. As for DM2, A1c was 6.8. She was given basal-bolus insulin in the hospital and discharged on metformin. She needs to establish primary care as soon as p ossible. Time Attestation Discharge coordination time: Greater than 30 minutes Quality: Safe Use of Opioids Does Pt have an Active Cancer Diagnosis on the Problem List?: No Quality: Stroke Does the patient have a stroke diagnosis?: No Physical Exam Vital Signs: Vital Signs: Last Vital Signs Temp 96.8 F 08/25/23 08:00 Pulse 61 08/25/23 08:00 Resp 18 08/25/23 08:00 BP 127/69 08/25/23 08:00 Pulse Ox 100 08/25/23 08:00 O2 Del Method Room Air 08/25/23 08:00 BMI result Body Mass Index 35.3 Gen: in no acute distress HEENT: EOMI, sclera anicteric, moist mucus membranes, extensive dental caries Neck: supple Lungs: clear to auscultation bilaterally Heart: regular rate and rhythm, no murmurs Abd: soft, non-tender, non-distended Ext: no edema Skin: R maxilla and infraorbital with mild erythema, improved; nasolabial area indurated without fluctuance Neuro: alert and oriented x3, no focal findings Psych: appropriate affect DS: Data Data Completed and Pending Completed studies during hospitalization [Text1]: Laboratory Results WBC 9.4 X10*3/uL (4.8-10.8) 08/23/23 05:23 RBC 4.00 X10*6/uL (4.20-5.50) L 08/23/23 05:23 Hgb 10.8 g/dl (12.0-16.0) L 08/23/23 05:23 Hct 32.4 % (37.0-47.0) L 08/23/23 05:23 MCV 81.0 fL (80.0-98.0) 08/23/23 05:23 MCH 27.0 pg (27.0-33.0) 08/23/23 05:23 MCHC 33.3 g/dl (31.0-35.0) 08/23/23 05:23 RDW 13.9 % (11.0-16.0) 08/23/23 05:23 Plt Count 171 X10*3/uL (160-400) 08/23/23 05:23 MPV 10.1 fL (9.4-12.3) 08/23/23 05:23 Immature Gran % (Auto) 0.4 % (0.0-0.4) 08/21/23 04:25 Neut % (Auto) 78.4 % (45-73) H 08/21/23 04:25 Lymph % (Auto) 12.6 % (20-40) L 08/21/23 04:25 [place] % (Auto) 6.4 % (2-11) 08/21/23 04:25 Eos % (Auto) 1.8 % (0-4) 08/21/23 04:25 Baso % (Auto) 0.4 % (0-2) 08/21/23 04:25 Lymph # (Auto) 1.6 X10*3/uL (1.2-4.9) 08/21/23 04:25 [place] # (Auto) 0.8 X10*3/uL (0.1-1.2) 08/21/23 04:25 Eos # (Auto) 0.2 X10*3/uL (0.0-0.4) 08/21/23 04:25 Baso # (Auto) 0.1 X10*3/uL (0.0-0.2) 08/21/23 04:25 Abs Immat Gran (auto) 0.05 X10*3/uL (0.00-0.03) H 08/21/23 04:25 Absolute Neuts (auto) 9.9 x10*3/uL (2.0-8.3) H 08/21/23 04:25 Absolute Nucleated RBC 0.000 X10*3/uL (0.0-0.012) 08/23/23 05:23 Nucleated RBC % (auto) 0.0 /100WBC (0.0-0.2) 08/23/23 05:23 Sodium 135 mmol/L (135-145) 08/21/23 04:25 Potassium 3.9 mmol/L (3.3-5.1) 08/21/23 04:25 Chloride 106 mmol/L (96-108) 08/21/23 04:25 Carbon Dioxide 22 mmol/L (22-29) 08/21/23 04:25 Anion Gap 11 (12-20) L 08/21/23 04:25 BUN 16 mg/dL (9-16) 08/21/23 04:25 Creatinine 0.77 mg/dL (0.5-1.4) 08/21/23 04:25 Estim Creat Clear Calc 110.9 08/21/23 04:25 Estimated GFR > 60 08/21/23 04:25 POC Glucose 145 mg/dL (60-115) H 08/25/23 08:04 Random Glucose 253 mg/dL (60-115) H 08/21/23 04:25 Estimat Average Glucose 148 mg/dL 08/20/23 22:48 Hemoglobin A1c % 6.8 % (<6.0) H 08/20/23 22:48 Lactic Acid 1.4 mmol/L (0.5-2.0) 08/20/23 22:41 Calcium 8.8 mg/dL (8.4-10.2) 08/21/23 04:25 C-Reactive Protein 9.23 mg/dL (< or = 0.50) H 08/23/23 05:23 Lipase 33 U/L (8-78) 08/20/23 22:[address] 08/22/23 16:11 IMPRESSION: Right maxillary cuspid periapical lucency with associated dehiscence of the overlying outer cortex and abscess formation. Abscess measures up to 1.3 x 0.3 cm in the axial plane. Correlation with odontogenic examination is recommended. There is extensive asymmetric right-sided facial soft tissue stranding. This extends into the right periorbital soft tissues without definite post septal or retrobulbar involvement. Coarse calcification along the right aspect of the sella turcica is indeterminate. Extensive odontogenic disease with dental caries and periapical lucencies. Labs on day of discharge: Laboratory Results - last 24 hr 08/24/23 08/24/23 08/24/23 11:29 16:09 20:21 POC Glucose 247 H 212 H 221 H 08/25/23 08:04 POC Glucose 145 H Preliminary micro results at discharge 08/20/23 22:47 Blood Culture - Preliminary Blood - Venous No growth after 48 hours. 08/20/23 22:45 Blood Culture - Preliminary Blood - Venous No growth after 48 hours. Discharge Plan Discharge Anticipated Discharge Date/Time: 08/25/23 11:12 Patient Disposition: Home, Self-Care Discharge Diagnosis: facial cellulitis associated with dental abscess newly diagnosed type 2 diabetes mellitus Referrals: Physician,Unknown J [Primary Care Provider] - 1 Week Discharge Medications: New amoxicillin-pot clavulanate 875-125 mg tablet 1 tab PO BID Qty: 18 0RF metformin 500 mg tablet extended release 24 hr 500 mg PO BID Qty: 60 0RF Continued aspirin 325 mg Tablet,Delayed Release (Dr/Ec) 325 mg PO BID PRN (Reason: Pain) Discharge Orders: Discharge Order (Routine); Ordered 08/25/23 Ordered By: Ashli Diaz Diet: Diabetic diet Activity on Discharge: As tolerated Stand Alone Forms: Patient Portal Discharge page Care Plan Goals: cure of infection Health Concerns: facial cellulitis associated with dental abscess newly diagnosed type 2 diabetes mellitus Plan of Treatment: take amoxicillin-clavulanate 875-125 mg twice daily for 9 days make an appointment with a dentist as soon as possible for tooth extraction/abscess drainage diabetic diet, aerobic exercise take metformin 500 mg twice daily Please establish primary care as soon as possible. Return to the hospital if you experience recurrent or worsening symptoms. Assessment: See Discharge Summary.
--- NOTE | 2023-08-25 11:30 | MHC.CM.PN ---
PT WILL DC HOME TODAY WITH INSTRUCTIONS TO FOLLOW UP WITH A DENTIST AND PRIMARY CARE PROVIDER PT WILL SELF ARRANGE TRANSPORT
[2023-08-25 11:31] LABS: Glucose, Whole Blood 158 mg/dL (60-115)
== END 2023-08-25 13:11 | disposition home or self-care (01) | DRG 720 ==
LOC: HO.ED 23:10 → HO.EDOVER 08-21 01:44 → HO.S3 08-21 05:46
PROVIDERS: Hospitalist; Admitting Provider Student in an Organized Health Care Education/Training Program; Emergency Provider Emergency Medicine; Visit Provider Family Medicine
DX: A41.9 Sepsis, unspecified organism (principal); E11.65 Type 2 diabetes mellitus with hyperglycemia; L03.211 Cellulitis of face; K04.7 Periapical abscess without sinus; E66.9 Obesity, unspecified; Z68.35 Body mass index [BMI] 35.0-35.9, adult; Z71.3 Dietary counseling and surveillance; Z87.891 Personal history of nicotine dependence
CPT/HCPCS: 36415; 70486; 70487; 80048; 82947; 83036; 83605; 83690; 85025; 85027; 86140; 87040; 99285; J0295; J1100; J1650; J1885; J2270; J2543; Q9967

== ENCOUNTER → 2023-08-21 01:41 | Outpatient (BNV) | payer BC, OTHER, SELFPAY | PROVIDERS: Admitting Provider Student in an Organized Health Care Education/Training Program; Emergency Provider Emergency Medicine; Visit Provider Student in an Organized Health Care Education/Training Program | DX: A41.9 Sepsis, unspecified organism (principal); E11.9 Type 2 diabetes mellitus without complications; L03.211 Cellulitis of face; K04.7 Periapical abscess without sinus | CPT/HCPCS: 99222; 99232; 99239; 99499 ==

== ENCOUNTER → 2023-08-21 01:41 | Outpatient (BNV) | payer BC, OTHER, SELFPAY | PROVIDERS: Admitting Provider Student in an Organized Health Care Education/Training Program; Emergency Provider Emergency Medicine; Visit Provider Internal Medicine | DX: L03.211 Cellulitis of face (principal) | CPT/HCPCS: 99222; 99252 ==

== ENCOUNTER 2023-09-08 12:35 | Outpatient (AMB) | payer BC, OTHER, SELFPAY ==
--- NOTE | 2023-09-08 12:40 | A.OFFPC_ITS ---
Vital Signs 09/08/23 12:41 Height 5 ft 10 in Weight 242 lb 4 oz BMI 34.8 BP 118/70 Blood Pressure Location Lt brachial Position Sitting Pulse 79 Pulse Source Pulse Oximeter Pulse Oximetry (%) 99 Oxygen Delivery Method Room Air Intake Visit Reasons: Est Care/Annual PE Intake Note: Patient is here today to est care and also Annual PE Allergies codeine [CODEINE] Adverse Reaction (Severe, Verified 09/08/23 12:43) TYL #3 - HEADACHE Tobacco use date assessed: 09/08/23 Dental Screening Dental Screen Date: 09/08/23 Did you have a dental visit in the last 12 months?: Yes Did you have a dental problem in the last 6 months where you did not have access to dental care?: No Was dental information given to patient?: Patient has dentist HPI HPI Comments History of Present Illness Details Patient is a 58-year-old female in today to establish care to have her annual physical. She was recently discharged from the emergency room 2 weeks prior to this visit due to face pain, which was diagnosed as a dental abscess. One day prior to visit she had the tooth extracted and was placed on preventative antibiotic treatment and 600 mg of Motrin. While the patient was in the emergency room she was also diagnosed with diabetes type 2. She was prescribed 500 mg of metformin to be taken twice daily and states that she has not taken her metformin since being discharged from the hospital because she wanted to see her lab results 1st. This patient has not had a primary care provider in over 5 years. She is due for a well-woman visit, mammogram, ophthalmology exam, podiatry exam. Her last colonoscopy was in June of 2021. She is due for labs. At the appointment today she has a chief complaint of joint pain in her bilateral hands which extends to the PIP joints. Denies any numbness or tingling to the area. Denies any trauma to the area. She states there is a family history of rheumatoid arthritis. Patient has declined the flu vaccination in office. She also states that she will declined the COVID immunization in addition to shingles, RSV, and pneumonia. [facility] Medical History (Updated 09/08/23 @ 14:47 by CHARISMA Joyce) H/O ETOH abuse Umbilical hernia Encounter for routine adult physical exam with abnormal findings COPD (chronic obstructive pulmonary disease) Obesity Tobacco use No known health problems Surgical History (System 08/29/23 @ 12:03 by Amber Sam) S/P laparoscopic cholecystectomy Hx of section Family History (Updated 09/08/23 @ 13:54 by CHARISMA Joyce) Paternal Grandfather Chronic kidney disease Maternal Grandmother Rheumatoid arthritis Mother Osteoporosis Social History (System 08/29/23 @ 12:03 by Amber Sam) Household Members: Significant Other and Children Housing: House Do you presently have visiting nurse or other home services: No Alcohol intake: never Patient Tobacco Use Status: Current someday Tobacco user Tobacco use type: Cigarette Cigarettes Per Day: 10 e-Cigarette/Vaping Use: Never Used Second Hand Smoke Exposure: No Substance Use Type: Marijuana Advance Directives Date on File: 07/02/21 service: No Current occupational status: unemployed Cognitive needs: No Hearing needs: No Vision needs: No Questionnaire PHQ-9 Over the last 2 weeks, how often have you been bothered by any of the following problems? 1. Little interest or pleasure in doing things: several days 2. Feeling down, depressed, or hopeless: several days 3. Trouble falling or staying asleep, or sleeping too much: more than half the days 4. Feeling tired or having little energy: not at all 5. Poor appetite or overeating: several days 6. Feeling bad about yourself - or that you are a failure or have let yourself or your family down: not at all 7. Trouble concentrating on things, such as reading the newspaper or watching television: more than half the days 8. Moving or speaking so slowly that other people could have noticed. Or the opposite - being so fidgety or restless that you have been moving around a lot more than usual: not at all 9. Thoughts that you would be better off or of hurting yourself in some way: not at all Total score: 7 Depression Screening Interpretation: Negative Depression Screening Done: Yes 69457 - PHQ-9 Billing: Yes Source: Developed by Drs. Mauro Conley, Sheila Cantu, Matthew Dillon and colleagues, with an educational shen from [employer]. Thrive Questionnaire Date Thrive assessed: 09/08/23 I am a: Patient What is your living situation today?: I have a steady place to live Within the past 12 months, did the food you bought not last and you didn't have the money to get more?: Sometimes True Within the past 12 months, did you worry whether your food would run out before you got money to buy more?: Sometimes True Do you have trouble paying for medicines?: Yes Do you have trouble getting transportation to medical appointments?: Yes Do you have trouble paying your heating and electricity bill?: Yes Do you have trouble taking care of your child, family member or friend?: No Do you have trouble with day-to-day activities such as bathing, preparing meals, shopping, managing finances, etc.?: No Are you currently unemployed and looking for a job?: Yes Are you interested in more education?: Yes AUDIT C Alcohol Use Questionnaire (AUDIT-C) 1. How often do you have a drink containing alcohol?: Monthly or less 2. How many drinks containing alcohol do you have on a typical day when you are drinking?: 1 or 2 3. How often do you have six or more drinks on one occasion?: Never Total Score: 1 Score Reviewed/Action Taken: Yes YIN-7 AMB Questionnaire YIN-7 Date YIN - 7 assessed: 09/08/23 Source: Developed by Drs. Mauro Conley, Sheila Cantu, Matthew Dillon and colleagues, with an educational shen from [employer]. YIN-7 Assessment Billing YIN-7 Assessment Tool: pt declined-do not bill Review of Systems Const Details: Constitutional : No Weight loss, No Fever, No Chills, No Fatigue, No Malaise ENT/Mouth : No ear pain or discharge, no nasal discharge, Admits dental pain due to recent tooth extraction. Eyes: No Eye Pain, No Swelling, No Redness. Admits halo of left eye. Cardiovascular : No Chest Pain, No SOB, No Dyspnea on Exertion, No Orthopnea, No Edema, No Palpitations Respiratory : No Cough, No Sputum, Admits Wheezing Gastrointestinal : No Nausea, No Vomiting, No Diarrhea, No Constipation, No abdominal Pain, No Hematochezia, No Melena. Admits hernia near past incision site. Genitourinary : No Dysuria, No Urinary Frequency, No Hematuria, Musculoskeletal : Admits joint pain in bilateral hands and PIP joints. Skin : No Skin Lesions, Admits redness over dorsal aspect of bilateral hands. Neuro : No Weakness, No Numbness, No Dizziness, No Headache Psych : No Anxiety/Panic, No Depression Heme/Lymph: No Bruising, No Bleeding,No Lymphadenopathy Endocrine : No Polyuria, No Polydipsia All other systems reviewed and are negative Physical exam (Primary Care) Vital Signs: Last Vital Signs Pulse 79 09/08/23 12:41 BP 118/70 09/08/23 12:41 Pulse Ox 99 09/08/23 12:41 Oxygen Delivery Method Room Air 09/08/23 12:41 Care Plan Goal for BP management: Vital signs have been reviewed and are stable. Patient will be placed on lisinopril 5 mg for kidney protection. She has been educated to take her blood pressure at home. She has been educated on signs and symptoms of hypotension. BMI result Body Mass Index 34.8 Tobacco/Smoking Status: Tobacco use Status Tobacco use date assessed 09/08/23 09/08/23 12:45 Patient Tobacco Use Status Current someday Tobacco 09/08/23 12:45 Tobacco use type Cigarette 09/08/23 12:45 e-Cigarette/Vaping Use Never Used 09/08/23 12:45 PHQ-9: PHQ-9 Score PHQ-9: Total score 8 09/08/23 13:40 Depression Screening Interpretation: Negative Thrive Assessment: Date of Thrive Assessment Date Thrive assessed 09/08/23 09/08/23 12:50 Const Other: Appearance: Alert.? Oriented X3.? No acute distress.? Head: Normocephalic, atraumatic, no step-offs or deformities Eyes: Pupils equal, round and reactive to light. Diminshed red reflex of left eye. ? ENT: TM visible, intact, and pearly roche. Septum midline. No pharynx inferior. No signs of infection at tooth extraction site. Neck: Normal inspection.? Neck supple.? Full range of motion, no lymphadenopathy. CVS: Normal heart rate and rhythm.? Pulses normal.? Respiratory: No respiratory distress.? Bilateral wheeze upper lobes. ? Abdomen: Soft and nontender. Some bulging over abdominal incisional site superior to navel. ? Skin: Skin warm and dry. Erythema over the dorsal aspect of bilateral hands and PIP joints..? Normal skin turgor.? Extremities: No lower extremity edema.? No calf ttp. 5/5 strength to bilateral upper and lower extremities Back: , no CVA tenderness bilaterally Neuro: Oriented X 3.? No motor deficit.? No sensory deficit. CN 2-12 intact Results AMB Hemoglobin A1c AMB Hemoglobin A1c 7.5 % Last Edit by Cora Sanchez CMA on 09/08/23 13:21 Results Reviewed Results Reviewed: Laboratory Last Values Hgb A1c (Clinic) 7.5 % (4.0-6.0) H 09/08/23 13:20 Reviewed A1c results with patient. Patient states she has not started her metformin that she was prescribed when she was discharged from the emergency room 2 weeks prior because she wanted to speak to a provider 1st and see what her labs are. Patient has been educated to start her metformin. Assessment and Plan Assessment & Plan (1) Encounter for routine adult physical exam with abnormal findings: Comment: Will draw labs CBC, CMP, lipid profile, TSH, T4, UA, magnesium, rheumatoid factor, vitamin B12, vitamin B6, iron profile, vitamin-D. Patient will follow- up in 3 months. Code(s): Z00.01 - Encounter for general adult medical examination with abnormal findings (2) New onset type 2 diabetes mellitus: Comment: A1c in office was 7.4. Patient states she has not started her metformin yet, has been instructed to start that. Patient has referral to Ophthalmology, and Podiatry. Patient had education session in office with diabetic nurse. Will give lisinopril for kidney protection. Code(s): E11.9 - Type 2 diabetes mellitus without complications (3) Umbilical hernia: Comment: Patient appears to have on physical exam hernia at site of abdominal incision. Patient declines pain to the area but states she is having increased episodes of constipation. Will refer to GI. Code(s): K42.9 - Umbilical hernia without obstruction or gangrene Qualifiers: Obstruction and gangrene presence: without obstruction or gangrene Qualified Code(s): K42.9 - Umbilical hernia without obstruction or gangrene (4) Halo, visual: Comment: Patient has diminished red/orange reflex in right eye. Reports halos in right eye. Will refer to Ophthalmology. Code(s): H53.19 - Other subjective visual disturbances (5) Joint pain in both hands: Comment: Patient has family history of rheumatoid arthritis. For on physical exam she has no obvious deformities of joints, but has erythema and reported pain on bilateral hands and PIP joint. Code(s): M25.541 - Pain in joints of right hand; M25.542 - Pain in joints of left hand Plan Patient has slightly decreasing H&H over past couple of lab draw. Will add iron profile, B6, B12 to labs, as well as repeat CBC. Orders: Orders AMB Hemoglobin A1c Today E11.9 - Type 2 diabetes mellitus without complications Complete Blood Count Auto Diff Today Z00.01 - Encounter for general adult medical examination with abnormal findings IRON PROFILE Today Z00.01 - Encounter for general adult medical examination with abnormal findings Vitamin B6 Today E11.9 - Type 2 diabetes mellitus without complications TSH reflex Free T4 Today Z00.01 - Encounter for general adult medical examination with abnormal findings MM tomosynthesis screening BI Today Z00. - Encounter for general adult medical examination with abnormal findings Vitamin B12 Today E11.9 - Type 2 diabetes mellitus without complications Comprehensive Met. Panel Today Z00.01 - Encounter for general adult medical examination with abnormal findings Vitamin D 25-OH (D2 and D3) Today Z00.01 - Encounter for general adult medical examination with abnormal findings Lipid Panel Today Z00.01 - Encounter for general adult medical examination with abnormal findings Magnesium Today F10.11 - Alcohol abuse, in remission UA CC w/rflx Micro + Cult Today E11.9 - Type 2 diabetes mellitus without complications Rheumatoid Factor Today M25.541 - Pain in joints of right hand, M25.542 - Pain in joints of left hand Referrals [facility] Referral Z00.01 - Encounter for general adult medical examination with abnormal findings Gastroenterology Referral K42.9 - Umbilical hernia without obstruction or gangrene Ophthalmology Referral E11.9 - Type 2 diabetes mellitus without complications, H53.19 - Other subjective visual disturbances Podiatry Referral E11.9 - Type 2 diabetes mellitus without complications Rheumatology Referral M25.541 - Pain in joints of right hand, M25.542 - Pain in joints of left hand Medications: New albuterol sulfate 90 mcg/actuation 2 puffs inhalation Q6H PRN 8.5 grams 0RF shortness of breath or wheezing lisinopril 5 mg PO DAILY 30 tabs 0RF Review Flu Vaccine not done: patient reason Declined TDap/Td: 09/08/23 Coding Level of Care Code New Pt Level 4 (81315) Diagnoses Encounter for routine adult physical exam with abnormal findings Z00. New onset type 2 diabetes mellitus E11.9 Umbilical hernia without obstruction and without gangrene K42.9 Obstruction and gangrene presence: without obstruction or gangrene Halo, visual H53.19 Joint pain in both hands M25.541; M25.542 Time Spent (min) 30
[2023-09-08 12:41] VITALS: BP 118/70; PULSE 79; O2SAT 99; BMI 34.8
== END 2023-09-08 13:50 | disposition home or self-care (01) ==
PROVIDERS: PCP Nurse Practitioner Primary Care; Visit Provider Nurse Practitioner Primary Care
DX: Z00.00 Encounter for general adult medical examination without abnormal findings (principal); E11.9 Type 2 diabetes mellitus without complications; K42.9 Umbilical hernia without obstruction or gangrene; H53.19 Other subjective visual disturbances; M25.541 Pain in joints of right hand; M25.542 Pain in joints of left hand
CPT/HCPCS: 83036; 99386

== ENCOUNTER 2024-05-01 13:32 | Outpatient (AMB) | payer BC, SELFPAY ==
[2024-05-01 13:32] VITALS: BP 100/58; BMI 37.2
--- NOTE | 2024-05-01 13:32 | MHC.OFFVIS ---
Vital Signs 05/01/24 13:32 Height 5 ft 10 in Weight 259 lb BMI 37.2 BP 100/58 L Intake Visit Reasons: New patient Annual Intake Note: Last pap long time ago hx colpo Last mammo age 35 Tariff Clerk: Tariff Clerk Present (Patti) Allergies codeine [CODEINE] Adverse Reaction (Severe, Verified 05/01/24 13:32) TYL #3 - HEADACHE HPI Comments Details: She is a postmenopausal woman presenting for her new patient annual cardiopulmonary technologist chief examination. She is doing well with no concerns. Admits to recent poison connor rash currently healing. Attempting to eat a healthy diet with calcium and vitamin D and stays active with exercise. Trying to quit tobacco, husbands is a smoker. Currently not sexually active. Denies any vaginal dryness or irritation. STI testing offered; she accepts. Last pap smear; >15years. Last mammogram; Not up to date. Colonoscopy is UTD. Denies any family history of ovarian or colon cancer. FH breast cancer. [facility] Medical History H/O ETOH abuse Umbilical hernia Encounter for routine adult physical exam with abnormal findings COPD (chronic obstructive pulmonary disease) Obesity Tobacco use No known health problems Surgical History S/P laparoscopic cholecystectomy Hx of section Family History Paternal Grandfather Chronic kidney disease Maternal Grandmother Rheumatoid arthritis Mother Osteoporosis History of breast cancer Paternal Grandmother History of breast cancer Father Myocardial infarction Social History Household Members: Significant Other and Children Housing: House Do you presently have visiting nurse or other home services: No Alcohol intake: current Alcohol intake frequency: holidays/special occasions only Patient Tobacco Use Status: Current someday Tobacco user Tobacco use type: Cigarette Cigarettes Per Day: 10 e-Cigarette/Vaping Use: Never Used Second Hand Smoke Exposure: No Substance Use Type: Marijuana Advance Directives Date on File: 07/02/21 service: No Current occupational status: unemployed Cognitive needs: No Hearing needs: No Vision needs: No Female Reproductive History Menstrual Age of menopause: 53 Total pregnancies: 2 Full term: 2 Number of Living Children: 2 Review of Systems Const All systems reviewed & are unremarkable except as noted in HPI and below Reports as per HPI Eyes Reports no additional complaints ENT Reports no additional complaints Card Reports no additional complaints Resp Reports no additional complaints GI Reports as per HPI and Reports no additional complaints Reports as per HPI Musc Reports no additional complaints Skin/Breast Reports as per HPI Neuro Reports no additional complaints Psych Reports no additional complaints Endo Reports no additional complaints Darryl/Lymph Reports no additional complaints Aller/Immun Reports no additional complaints Physical Exam Vital Signs: Last Vital Signs BP 100/58 L 05/01/24 13:32 BMI result Body Mass Index 37.2 Const General: cooperative, healthy appearing, no acute distress, well developed and alert Orientation/consciousness: patient oriented x3 HEENT Head: Yes normal to inspection Eyes General: appearance normal, both eyes and all related structures Neck Neck: Yes normal visual inspection Thyroid: Thyroid normal Chest Chest palpation & inspection: normal inspection of the chest and other (no puckering, dimpling, peau de orange, retraction, discharge, masses) Breast/axilla inspection: normal inspection of the breasts Breast/axilla palpation: normal palpation of the breasts Resp Effort & Inspection: normal respiratory effort GI Inspection: Yes normal to inspection Palpation (GI): Soft to palpation Rectal Exam - Female: deferred General: Yes bladder normal to palpation External Female Exam: normal external appearance and normal appearance of the urethra Speculum Exam - Vagina: normal appearance of the vagina, normal palpation and normal vaginal discharge Speculum Exam - Cervix: normal appearance of the cervix and normal palpation Bimanual exam- vagina & uterus: normal bimanual exam, normal palpation, uterine size normal, bladder normal to palpation, normal palpation and non-tender Bimanual Exam- Adnexa, other: no masses Skin Other: Scattered dried lesions over the over the body Rashes: no rashes Neuro General: patient oriented x3 Cognition (Neuro): normal cognition Extrem General: Yes normal to inspection Psych Attitude: cooperative Thought process: Normal thought process present Assessment & Plan Assessment & Plan (1) Encounter for well woman exam with routine gynecological exam: Code(s): Z01.419 - Encounter for gynecological examination (general) (routine) without abnormal findings Category: Medical Plan Discussed: Current recommendations for pap smears per ASCCP guidelines. Breast awareness, periodic self breast exams and yearly mammogram. Maintain a healthy lifestyle, well balanced diet including Calcium 1,200 mg and Vitamin D 600 IU daily, and routine exercise. Encouraged tobacco cessation. Mammogram ordered. Contact the office with any postmenopausal bleeding. Patient verbalizes understanding and agrees to the plan of care. She was given opportunity to ask questions and all questions were answered to the best of my ability. RTO in 1 year for annual cardiopulmonary technologist chief exam. This note is constructed using voice recognition software. While every effort has been made to ensure accuracy, financial sales associate errors may have been included. Orders: Orders PAP + HPV E6/E7 rfx 18/45 Today Z01.419 - Encounter for gynecological examination (general) (routine) without abnormal findings MM tomosynthesis screening BI Today Z12.31 - Encounter for screening mammogram for malignant neoplasm of breast Bacterial Vaginosis Panel Today Z20.2 - Contact with and (suspected) exposure to infections with a predominantly sexual mode of transmission CT NG by PCR Today Z20.2 - Contact with and (suspected) exposure to infections with a predominantly sexual mode of transmission Coding Level of Care Code New Pt Prev Care 40-64y(20478) Diagnoses Encounter for well woman exam with routine gynecological exam Z01.419
== END 2024-05-01 14:34 | disposition home or self-care (01) ==
LOC: HO.HWS 13:32
PROVIDERS: PCP Nurse Practitioner Primary Care; Visit Provider Advanced Practice Midwife
DX: Z01.419 Encounter for gynecological examination (general) (routine) without abnormal findings (principal)
CPT/HCPCS: 99386

== ENCOUNTER 2024-05-01 13:32 | Outpatient (REF) | payer BC, SELFPAY ==
[2024-05-02 07:17] LABS: CT PCR NOT DETECTED (Not Detect.); NG PCR NOT DETECTED (Not Detect.)
[2024-05-02 11:21] LABS: Bacterial Vaginosis PCR NEGATIVE (Negative); Candida Group PCR NOT DETECTED (Not Detect); Candida glab krusei PCR NOT DETECTED (Not Detect); Trichomonas vaginalis PCR NOT DETECTED (Not Detect)
[2024-05-03 17:33] LABS: HPV mRNA E6/E7 Not Detected (Not Detected)
== END 2024-05-01 13:33 | disposition home or self-care (01) ==
LOC: HO.LAB 13:32
PROVIDERS: PCP Nurse Practitioner Primary Care; Visit Provider Advanced Practice Midwife
DX: Z01.419 Encounter for gynecological examination (general) (routine) without abnormal findings (principal); Z11.51 Encounter for screening for human papillomavirus (HPV); Z20.2 Contact with and (suspected) exposure to infections with a predominantly sexual mode of transmission
CPT/HCPCS: 0352U; 36415; 87491; 87591; 87624; 88175

== ENCOUNTER 2024-05-01 14:04 | Outpatient (REF) | payer BC, SELFPAY | END 2024-05-01 14:05 | disposition home or self-care (01) | LOC: HO.LNP 14:04 | PROVIDERS: Visit Provider Advanced Practice Midwife | DX: Z13.89 Encounter for screening for other disorder (principal) ==

== ENCOUNTER 2024-09-16 15:53 | Outpatient (AMB) | payer BC, SELFPAY ==
[2024-09-16 16:02] VITALS: BP 102/62; PULSE 96; TEMP 36.7; O2SAT 100; BMI 37.7
--- NOTE | 2024-09-16 16:02 | AM.OFFWIN_ITS ---
Intake Vital Signs 09/16/24 16:02 Height 5 ft 10 in Weight 263 lb BMI 37.7 BP 102/62 Blood Pressure Location Rt brachial Position Sitting Pulse 96 Pulse Source Pulse Oximeter Temp 98.1 F Temp Source Oral Pulse Oximetry (%) 100 Oxygen Delivery Method Room Air Intake Visit Reasons: EP SOB, Cough, Congestion Intake Note: Pt is here today SOB, cough and congestion. Symptoms started Patient Tobacco Use Status: Current someday Tobacco user Allergies codeine [CODEINE] Adverse Reaction (Severe, Verified 09/16/24 16:03) TYL #3 - HEADACHE Do you need a note to return to daycare/school/sports/work: No HPI EP SOB, Cough, Congestion HPI Details This note is constructed using voice recognition software. While every effort has been made to ensure accuracy, marketing summer intern errors may have been included. The patient is a 59 year old female who presents to the clinic today with cough, congestion for the past few days. She denies fever, chills. She does report some dyspnea at rest. She reports she has got a history of COPD and asthma, previously on albuterol inhaler, however has run out. She has been taking DayQuil and NyQuil with minimal results on symptoms. She denies body aches. [facility] Medical History H/O ETOH abuse Umbilical hernia Encounter for routine adult physical exam with abnormal findings COPD (chronic obstructive pulmonary disease) Obesity Tobacco use No known health problems Surgical History S/P laparoscopic cholecystectomy Hx of section Family History Paternal Grandfather Chronic kidney disease Maternal Grandmother Rheumatoid arthritis Mother Osteoporosis History of breast cancer Paternal Grandmother History of breast cancer Father Myocardial infarction Social History Household Members: Significant Other and Children Housing: House Do you presently have visiting nurse or other home services: No Alcohol intake: current Alcohol intake frequency: holidays/special occasions only Patient Tobacco Use Status: Current someday Tobacco user Tobacco use type: Cigarette Cigarettes Per Day: 10 e-Cigarette/Vaping Use: Never Used Second Hand Smoke Exposure: No Substance Use Type: Marijuana Advance Directives Date on File: 07/02/21 service: No Current occupational status: unemployed Cognitive needs: No Hearing needs: No Vision needs: No Review of Systems Const All systems reviewed & are unremarkable except as noted in HPI and below Physical Exam Vital Signs: Last Vital Signs Pulse 96 09/16/24 16:02 BP 102/62 09/16/24 16:02 Pulse Ox 100 09/16/24 16:02 Oxygen Delivery Method Room Air 09/16/24 16:02 BMI result Body Mass Index 37.7 Const General: cooperative, healthy appearing, comfortable and no acute distress Orientation/consciousness: patient oriented x3 Limitations: no limitations HEENT Head: Yes normal to inspection Ears: hearing grossly normal bilaterally, external ears normal and TM's normal bilaterally General nose exam: Normal external nose present, Normal nares present and No nasal discharge present Face and sinus: Yes normal facial exam and Yes sinuses nontender Mouth: Normal oral and palatal mucosa present and moist mucous membranes Throat: Yes tonsils normal, Yes uvula midline and Yes posterior oropharynx abnormal (Erythema) Eyes General: appearance normal, both eyes and all related structures Neck Neck: Yes normal visual inspection Resp Effort & Inspection: normal respiratory effort, able to speak in complete sentences, Actively coughing, no respiratory distress, not tachypneic, no tripod positioning and no use of accessory muscles Auscultation: clear to auscultation bilaterally (But tight sounding) Cardio Jugular venous distension: no JVD Rate: regular rate Rhythm: regular rhythm Heart sounds: S1 normal heart sound present, S2 normal heart sound present, no click, no gallops, no murmurs and no rubs Skin General skin exam: no rashes or lesions noted, elasticity normal and turgor normal Neuro General: patient oriented x3 Extrem General: Yes normal to inspection and Yes no clubbing, cyanosis or edema Assessment & Plan Assessment & Plan (1) URI (upper respiratory infection): Code(s): J06.9 - Acute upper respiratory infection, unspecified Qualifiers: URI type: unspecified URI Qualified Code(s): J06.9 - Acute upper respiratory infection, unspecified Plan: Viral swab obtained to rule out Covid, Influenza, and RSV based on symptoms. Adv ised mask wearing while symptomatic and quarantine per current CDC guidelines. Reviewed at home support methods including hydration, humidification, vix vapor rub, sinus rinse, and otc treatment options. Discussed treatment with antiviral therapy for covid with paxlovid and with Tamiflu for influenza, including appropriate use and side effects, and need to start medication within 5 day of symptom onset, preferably within 48 hours of symptom onset. Patient wishes to decline antiviral therapy. Albuterol inhaler refill sent to requested pharmacy. Additionally we will try a prednisone burst for symptomatic management. Advised follow up with worsening symptoms such as dyspnea at rest, which would require emergent evaluation. Plan See above for full details and plan. Orders: Orders SARS-CoV2/FLU/RSV Today J06.9 - Acute upper respiratory infection, unspecified Medications: New prednisone 40 mg (2 x 20 mg) PO DAILY 5 days 10 tabs 0RF Refilled albuterol sulfate 90 mcg/actuation 2 puffs inhalation Q6H PRN 18 ea 0RF for wheezing Coding Level of Care Code Est Pt Level 3 (46575) Diagnoses Upper respiratory tract infection, unspecified type J06.9 URI type: unspecified URI
--- OUTSIDE RECORDS SUMMARY | 2024-09-18 16:26 | XMS_ITS | Patient Health Record ---
Author Organization [facility] Address [address] [place] [address] Care Team Providers Care Manager Field Service Name Role Phone Elian Holloway Primary Care Provider Faizan Santana Jr Unavailable REASON FOR REFERRAL No Information SOCIAL HISTORY Sex Assigned At : Social History Observation Description Sex Assigned At Unknown PROBLEMS Problem Type ICD Code Onset Dates Problem Status W/U Status Risk SNOMED Code Notes Problem Constipation (K59.00) Active confirmed Constipation ([id number]) PLAN OF TREATMENT No Information Insurance Providers Payer Name Payer Address Payer Phone Subscriber Number Group Number Insured Name Patient Relationship to Insured Coverage Start Date Coverage End Date [facility] [address] [place] [phone] [id number] DEBRA CASILLAS Self - patient is the insured
== END 2024-09-16 17:05 | disposition home or self-care (01) ==
PROVIDERS: Visit Provider Registered Nurse
DX: J06.9 Acute upper respiratory infection, unspecified (principal)

== ENCOUNTER 2024-09-16 15:53 | Outpatient (REF) | payer BC, SELFPAY | END 2024-09-16 15:54 | disposition home or self-care (01) | LOC: HO.LAB 15:53 | DX: Z13.89 Encounter for screening for other disorder (principal) ==

== ENCOUNTER 2024-09-17 14:45 | Outpatient (REF) | payer BC, SELFPAY ==
[2024-09-17 16:26] LABS: Influenza A PCR NEGATIVE (Negative); Influenza B PCR NEGATIVE (Negative); Resp Syncy Virus RNA Qual PCR NEGATIVE (Negative); SARS COV2 PCR INHOUSE NEGATIVE (Negative)
== END 2024-09-17 14:46 | disposition home or self-care (01) ==
LOC: HO.LNP 14:45
PROVIDERS: Visit Provider Registered Nurse
DX: J06.9 Acute upper respiratory infection, unspecified (principal)
CPT/HCPCS: 0241U